=== PATIENT | female | born 1955 | race Caucasian/White ===

== ENCOUNTER → 2018-04-12 09:32 | Outpatient (CLI) | payer MEDICAID, SELFPAY ==
[2018-04-12 12:21] LABS: Vitamin D,25 Hydroxy 34.2 ng/mL (29.95-100.01)
== END ==
PROVIDERS: Family Provider Family Medicine; PCP Family Medicine; Visit Provider Family Medicine
DX: E55.9 Vitamin D deficiency, unspecified (principal)
CPT/HCPCS: 36415; 82306

== ENCOUNTER → 2018-06-01 11:15 | Outpatient (CLI) | payer MEDICAID, SELFPAY ==
[2018-06-01 15:18] LABS: Absolute Neutrophil Count 3.5 X10^3/uL (2.0-7.7); Basophil# 0.05 X10^3/uL; Basophil% 0.8 % (0-1); Eosinophil# 0.26 X10^3/uL; Eosinophils% 3.9 % (0-5); Hematocrit 43.9 % (37-47); Hemoglobin 14.6 g/dl (12.0-15.0); Lymphocyte % 34.7 % (19-41); Mean Corp Hgb Conc 33.3 g/gl (32-36); Mean Corpuscular Hgb 30.5 pg (27.0-32.0); Mean Corpuscular Volume 91.8 fL (81-99); Mean Platelet Vol. 10.7 fl (6.2-12.0); Monocyte# 0.46 X10^3/uL; Monocyte% 6.9 % (0-10); Neutrophil # 3.54 X10^3/uL (2.7-7.7); Neutrophil % 53.5 % (47-70); Platelet Count 209 K/mm3 (150-450); RBC Distribution Width CV 13.1 % (11.6-14.6); RBC Distribution Width SD 43.6 fl (35.1-43.9); Red Blood Count 4.78 M/mm3 (4.2-5.4); White Blood Count 6.6 K/mm3 (4.4-11.0)
[2018-06-01 15:19] LABS: POSITIVE COUNT NO; POSITIVE DIFFERENTIAL NO; POSITIVE MORPHOLOGY NO
[2018-06-01 15:35] LABS: ALB/GLOB Ratio 1.1 RATIO (0.9-2.4); AST(SGOT) 17 U/L (15-37); Alanine Aminotransfer ALT/SGPT 29 U/L (13-56); Albumin, Serum 3.6 g/dL (3.2-5.0); Alkaline Phosphatase 98 U/L (45-117); Anion Gap 10 (5-15); BUN 11 mg/dL (7-18); BUN/Creat Ratio 14.9 RATIO (10-20); Calcium,Total 8.9 mg/dL (8.5-10.1); Chloride 102 mmol/L (98-107); Creatinine, Serum 0.74 mg/dL (0.55-1.02); EST Glomerular Filtration Rate 85 mL/min (>60); Est Glom Filt Rate - Afr Amer 103 mL/min (>60); Globulin 3.3 g/dL (2.2-4.2); Glucose 95 mg/dL (74-106); Potassium 3.3 mmol/L (3.5-5.1); Protein, Total 6.9 g/dL (6.4-8.2); Sodium Level 139 mmol/L (136-145); T4 Free Direct 1.11 ng/dL (0.76-1.46); Thyroid Stim Hormone (TSH) 1.75 uIU/mL (0.358-3.74)
== END ==
PROVIDERS: Family Provider Family Medicine; PCP Family Medicine; Visit Provider Family Medicine
DX: I10 Essential (primary) hypertension (principal); K51.90 Ulcerative colitis, unspecified, without complications; E87.6 Hypokalemia; N39.0 Urinary tract infection, site not specified
CPT/HCPCS: 36415; 80053; 84439; 84443; 85025; 87086; 87088

== ENCOUNTER → 2018-08-31 12:12 | Outpatient (CLI) | payer MEDICARE, SELFPAY | PROVIDERS: Family Provider Family Medicine; PCP Family Medicine; Referring Provider Family Medicine; Visit Provider Family Medicine | DX: J02.9 Acute pharyngitis, unspecified (principal) | CPT/HCPCS: 87070 ==

== ENCOUNTER → 2018-09-03 14:07 | Outpatient (CLI) | payer MEDICARE, SELFPAY ==
[2018-09-03 13:20] VITALS: BMI 46.4
--- NOTE | 2018-09-03 14:09 | RAD_ITS ---
STUDY: X-RAY CHEST REASON FOR EXAM: Female, 62 years old. Shortness of breath and cough TECHNIQUE: PA and lateral views of the chest. COMPARISON: 04/15/2017 FINDINGS: The lungs are clear and expanded. There is no demonstrated pleural abnormality. Normal size heart. Normal mediastinum and kati. Normal visualized pulmonary arteries. Normal visualized aortic arch and descending thoracic aorta. Normal visualized thoracic spine. Normal visualized ribs, clavicles, and shoulders. There is no demonstrated abnormality of the visualized soft tissue structures of the upper abdomen. RAD/Chest PA and Lateral IMPRESSION: Normal x-ray examination of the chest. Electronically Signed: Ivan Encinas MD at 21:06 EST , Service support ,
[2018-09-03 15:27] LABS: Anion Gap 10 (5-15); BUN 21 mg/dL (7-18); Calcium,Total 8.7 mg/dL (8.5-10.1); Chloride 108 mmol/L (98-107); Creatinine, Serum 0.88 mg/dL (0.55-1.02); EST Glomerular Filtration Rate 70 mL/min (>60); Est Glom Filt Rate - Afr Amer 84 mL/min (>60); Glucose 121 mg/dL (74-106); Potassium 3.4 mmol/L (3.5-5.1); Sodium Level 140 mmol/L (136-145)
== END ==
PROVIDERS: Family Provider Family Medicine; PCP Family Medicine; Referring Provider Internal Medicine Cardiovascular Disease; Visit Provider Internal Medicine Cardiovascular Disease
DX: R06.00 Dyspnea, unspecified (principal)
CPT/HCPCS: 36415; 71046; 80048; 83880

== ENCOUNTER → 2018-09-10 07:45 | Outpatient (CLI) | payer MEDICARE, SELFPAY ==
[2018-09-03 13:20] VITALS: BMI 46.4
--- NOTE | 2018-09-10 07:48 | ECHOCS_ITS ---
Reason For Study: DYSPNEA/SOB Procedure This was a 2D Doppler, Color Flow transthoracic echocardiogram. The study was technically difficult. Exam performed in department. Left Ventricle Normal LV size. Left ventricular systolic function is normal. The estimated ejection fraction is 60 %. No evidence for diastolic dysfunction. No regional wall motion abnormalities noted. Right Ventricle Normal RV size. Normal systolic function. Atria Normal left atrium. Normal right atrium. Mitral Valve Mild mitral valve prolapse. Mild (1+) eccentric mitral valve insufficiency. Tricuspid Valve Normal tricuspid valve. Mild (1+) tricuspid valve insufficiency. Pulmonary artery systolic pressure is 33 mmHg. Aortic Valve The aortic valve is not well visualized. Pulmonic Valve The pulmonic valve is not well visualized. Great Vessels Normal aortic root. Pericardium/Pleural No pericardial effusion. Medication 22 gauge I.V. with prn adaptor inserted into right arm. Diluted definity 6ml given slow IV push to enhance endocardial definition. MMode/2D Measurements & Calculations LVIDd: 5.0 cm IVSd: 1.2 cm Ao root diam: 3.5 cm LVIDs: 3.1 cm LVPWd: 1.2 cm LA dimension: 4.6 cm FS: 37.6 % LAV(MOD-bp): 95.3 ml LA A4 area: 30.3 cm2 LAV(MOD-bp) Indexed: 45.1 ml/m2 LAV(MOD-sp2): 75.2 ml LAV(MOD-sp4): 109.4 ml Time Measurements MV dec time: 0.23 sec Doppler Measurements & Calculations MV E max mohan: 86.5 cm/sec Lat Peak E' Mohan: 8.6 cm/sec Med Peak E' Mohan: 6.6 cm/sec MV A max mohan: 75.4 cm/sec E/E' lat: 10.0 E/E' med: 13.0 MV E/A: 1.1 MV V2 max: 92.5 cm/sec MV P1/2t max mohan: 92.5 cm/sec Ao V2 max: 124.8 cm/sec MV max P.4 mmHg MV P1/2t: 109.1 msec Ao max P.2 mmHg MV V2 mean: 53.3 cm/sec MV dec slope: 248.5 cm/sec2 MV mean P.3 mmHg MV V2 VTI: 24.6 cm MVA(P1/2t): 2.0 cm2 LV V1 max: 83.5 cm/sec MR max mohan: 544.5 cm/sec PA V2 max: 84.7 cm/sec LV V1 max P.8 mmHg MR max P.6 mmHg MR mean mohan: 395.9 cm/sec MR mean P.7 mmHg MR VTI: 180.2 cm TR max mohan: 272.4 cm/sec TR max P.7 mmHg Interpretation Summary Normal LV size. Left ventricular systolic function is normal. The estimated ejection fraction is 60 %. No evidence for diastolic dysfunction. Mild (1+) eccentric mitral valve insufficiency. Mild (1+) tricuspid valve insufficiency. Contrast injection was performed. Compared to previous study, the left ventricular systolic function is the same.. Ordering Physician: Jorge Gutiérrez Referring Physician: Jorge Gutiérrez Performed By: Nate Langley RCS
--- OUTSIDE RECORDS SUMMARY | 2018-11-14 14:42 | XMS RPT_ITS ---
:1955 Author Organization OHIP Support Name Relationship Address Phone D Unavailable Unavailable Unavailable MEHERG, STEFANO Unavailable [id number] + [place] [address] D Unavailable Unavailable Unavailable D Unavailable Unavailable Unavailable MEHERG, STEFANO Unavailable [address] + [place] [address] D Unavailable Unavailable Unavailable MEHERG, STEFANO Unavailable [address] + [place] [address] LAWSON, LISSETH Unavailable Unavailable + [place] [address] D Unavailable Unavailable Unavailable D Unavailable Unavailable Unavailable MEHERG, STEFANO Unavailable [address] + [place] [address] D Unavailable Unavailable Unavailable MEHERG, STEFANO Unavailable [address] + [place] [address] LAWSON, LISSETH Unavailable Unavailable + D Unavailable Unavailable Unavailable MEHERG, STEFANO Unavailable [address] + [place] [address] LAWSON, LISSETH Unavailable Unavailable + MEHERG, STEFANO Unavailable Unavailable + D Unavailable Unavailable Unavailable MEHERG, STEFANO Unavailable NA + [place], [place] LAWSON, LISSETH Unavailable NA + [place], [place] D Unavailable Unavailable Unavailable MEHERG, STEFANO Unavailable NA + [place], [place] LAWSON, LISSETH Unavailable NA + [place], [place] D Unavailable Unavailable Unavailable MEHERG, STEFANO Unavailable [address] + [place] [address] LAWSON, LISSETH Unavailable [facility] + [place] [address] Care Team Providers Name Role Phone Opal Renteria Attending Unavailable Dexter, Opal Referring Unavailable Dexter, Opal Primary Care Unavailable Anastacia White Attending Unavailable Brock, Jorge Attending Unavailable Dexter, Opal Referring Unavailable Brock, [place] Attending Unavailable Brock, Jorge Referring Unavailable Dexter, Opal Primary Care Unavailable Brock, [place] Attending Unavailable Brock, [place] Referring Unavailable Dexter, Opal Primary Care Unavailable Brock, [place] Attending Unavailable Brock, [place] Referring Unavailable Dexter, Opal Primary Care Unavailable Brock, Jorge Attending Unavailable Dexter, Opal Referring Unavailable Dexter, Opal Attending Unavailable Dexter, Opal Primary Care Unavailable Dexter, Opal Attending Unavailable Dexter, Opal Primary Care Unavailable THALIA JOHNSTON Attending Unavailable OPAL RENTERIA Referring Unavailable Opal Renteria Primary Care Unavailable Nolvia Pierson Attending Unavailable PROBLEMS PROBLEMS DATE TYPE CONDITION / CODE ATTENDING STATUS SOURCE 09/17/2018 Unknown R06.00 - Dyspnea, Brock, Jorge Active [facility] unspecified / Community R06.00(ICD-10) Hospital Repository 09/17/2018 Unknown R06.09 - Other Brock, [place] Active [facility] forms of dyspnea / Community R06.09(ICD-10) Hospital Repository 07/11/2018 Admitting Unknown / Bashir Pierson Medical diagnosis UNK(Unknown) Nolvia Smith [facility] Repository 07/07/2018 Unknown I10 - Essential DexterOpal chan Active [place] [facility] (primary) [facility] hypertension / Hospital I10(ICD-10) Repository 07/07/2018 Unknown E55.9 - Vitamin D DexterOpal chan Active [place] [facility] deficiency, Community unspecified / Hospital E55.9(ICD-10) Repository PROCEDURES PROCEDURES No Procedure Records FoundRESULTS RESULTS BASIC METABOLIC Collected: 09/16/2018 Status: F Source: [place] PROFILE (BMP) 12:42 PM [facility] H[facility] REPOSITORY TYPE CODE TESTS RESULT OUT OF RANGE REFERENCE UNITS LAB L501.0100 74-106 mg/dL High GLU 108 Result Comment: Fasting Glucose result from 100 to 125 mg/dL suggests IMPAIRED HOMEOSTASIS per A.D.A. criteria. Please note revised GLUCOSE reference range effective 2017. LAB L501.1000 7-18 mg/dL Normal BUN 13 LAB L501.1100 0.55-1.02 mg/dL Normal CREAT,SERUM 0.65 Result Comment: The validity of the calculated GFR AND GFRAA in patients over 70 years has not been determined. Clinical correlation is essential. LAB L501.1110 >60 mL/min Normal EST GFR 98 Result Comment: Non- GFR Calc LAB L501.1115 >60 mL/min Normal EST GFR - AA 119 Result Comment: GFR Calc LAB L501.1300 10-20 RATIO Normal BUN/CRE 20.0 LAB L501.2200 8.5-10.1 mg/dL Low CA 8.2 LAB L501.5300 136-145 mmol/L NA Normal 141 LAB L501.5600 3.5-5.1 mmol/L Low K 3.2 LAB L501.5900 98-107 mmol/L CL Normal 105 LAB L501.6100 21.0-32.0 mmol/L Normal CO2 27.0 LAB L501.6200 5-15 Normal GAP 9 Performed By: #### L500.2500 #### [facility] [address] [place], [address] ECHO, COMPLETE W/ Observed: 09/10/2018 Status: F Source: [place] CONTRAST 10:24 AM [facility] REPOSITORY [facility] Cardiovascular Services [address] [place] [address] Echo Complete W/ Contrast 09/10/18 0750 MR#: [id number] Acct: [id number] Name: STACIE NICHOLS Rep #: [id number] : 1955 62 From: Jorge Gutiérrez MD Attending Dr: Jorge Gutiérrez MD Status: REG CLI Ordering Dr: Jorge Gutiérrez MD Date: 09/10/18 Location: [facility] Sex: F C Admitted: Reason For Study: DYSPNEA/SOB Procedure This was a 2D Doppler, Color Flow transthoracic echocardiogram. The study was technically difficult. Exam performed in department. Left Ventricle Normal LV size. Left ventricular systolic function is normal. The estimated ejection fraction is 60 %. No evidence for diastolic dysfunction. No regional wall motion abnormalities noted. Right Ventricle Normal RV size. Normal systolic function. Atria Normal left atrium. Normal right atrium. Mitral Valve Mild mitral valve prolapse. Mild (1+) eccentric mitral valve insufficiency. Tricuspid Valve Normal tricuspid valve. Mild (1+) tricuspid valve insufficiency. Pulmonary artery systolic pressure is 33 mmHg. Aortic Valve The aortic valve is not well visualized. Pulmonic Valve The pulmonic valve is not well visualized. Great Vessels Normal aortic root. Pericardium/Pleural No pericardial effusion. Medication 22 gauge I.V. with prn adaptor inserted into right arm. Diluted definity 6ml given slow IV push to enhance endocardial definition. MMode/2D Measurements AND Calculations LVIDd: 5.0 cm IVSd: 1.2 cm Ao root diam: 3.5 cm LVIDs: 3.1 cm LVPWd: 1.2 cm LA dimension: 4.6 cm FS: 37.6 % LAV(MOD-bp): 95.3 ml LA A4 area: 30.3 cm2 LAV(MOD-bp) Indexed: 45.1 ml/m2 LAV(MOD-sp2): 75.2 ml LAV(MOD-sp4): 109.4 ml Time Measurements MV dec time: 0.23 sec Doppler Measurements AND Calculations MV E max mohan: 86.5 cm/sec Lat Peak E' Mohan: 8.6 cm/sec Med Peak E' Mohan: 6.6 cm/sec MV A max mohan: 75.4 cm/sec E/E' lat: 10.0 E/E' med: 13.0 MV E/A: 1.1 MV V2 max: 92.5 cm/sec MV P1/2t max mohan: 92.5 cm/sec Ao V2 max: 124.8 cm/sec MV max P.4 mmHg MV P1/2t: 109.1 msec Ao max P.2 mmHg MV V2 mean: 53.3 cm/sec MV dec slope: 248.5 cm/sec2 MV mean P.3 mmHg MV V2 VTI: 24.6 cm MVA(P1/2t): 2.0 cm2 LV V1 max: 83.5 cm/sec MR max mohan: 544.5 cm/sec PA V2 max: 84.7 cm/sec LV V1 max P.8 mmHg MR max P.6 mmHg MR mean mohan: 395.9 cm/sec MR mean P.7 mmHg MR VTI: 180.2 cm TR max mohan: 272.4 cm/sec TR max P.7 mmHg Interpretation Summary Normal LV size. Left ventricular systolic function is normal. The estimated ejection fraction is 60 %. No evidence for diastolic dysfunction. Mild (1+) eccentric mitral valve insufficiency. Mild (1+) tricuspid valve insufficiency. Contrast injection was performed. Compared to previous study, the left ventricular systolic function is the same.. Ordering Physician: Jorge Gutiérrez Referring Physician: Jorge Gutiérrez Performed By: Nate Langley, DANIELLE 09/10/18 1023 Date Jorge Gutiérrez MD CC: Jorge Gutiérrez MD; Opal Renteria MD Date Dictated: 09/10/18 0750 Date Transcribed: 09/10/18 1023 Band And Cuff Cutter: Signed BASIC METABOLIC Collected: 09/03/2018 Status: F Source: [place] PROFILE ([facility]) 2:31 PM [facility] REPOSITORY TYPE CODE TESTS RESULT OUT OF RANGE REFERENCE UNITS LAB L501.0100 74-106 mg/dL High GLU 121 Result Comment: Fasting Glucose result from 100 to 125 mg/dL suggests IMPAIRED HOMEOSTASIS per A.D.A. criteria. Please note revised GLUCOSE reference range effective 2017. LAB L501.1000 7-18 mg/dL High BUN 21 LAB L501.1100 0.55-1.02 mg/dL Normal CREAT,SERUM 0.88 Result Comment: The validity of the calculated GFR AND GFRAA in patients over 70 years has not been determined. Clinical correlation is essential. LAB L501.1110 >60 mL/min Normal EST GFR 70 Result Comment: Non- GFR Calc LAB L501.1115 >60 mL/min Normal EST GFR - AA 84 Result Comment: GFR Calc LAB L501.1300 10-20 RATIO High BUN/CRE 24.0 LAB L501.2200 8.5-10.1 mg/dL CA Normal 8.7 LAB L501.5300 136-145 mmol/L NA Normal 140 LAB L501.5600 3.5-5.1 mmol/L Low K 3.4 LAB L501.5900 98-107 mmol/L High CL 108 LAB L501.6100 21.0-32.0 mmol/L Normal CO2 22.0 LAB L501.6200 5-15 Normal GAP 10 Performed By: #### L500.2500 #### [facility] [address] [place], [address] BNP,B-TYPE NATRIURETIC Collected: 09/03/2018 Status: F Source: [place] PEPTIDE 2:31 PM [facility] REPOSITORY TYPE CODE TESTS RESULT OUT OF RANGE REFERENCE UNITS LAB L503.6620 0-100 pg/mL High B-TYPE 106.0 MEAGHAN PEP Performed By: #### L503.6620 #### [facility] [address] [place], [address] CHEST PA AND LATERAL Observed: 09/03/2018 Status: F Source: [place] 2:09 PM [facility] REPOSITORY [facility] Imaging Services [address] [place] [address] Chest PA and Lateral MR#: [id number] Acct: [id number] Name: STACIE NICHOLS Rep #: [id number] : 1955 F 62 From: Huan Encinas MD PCP: Opal Renteria MD Status: REG CLI Study: Chest PA and Lateral Date of Exam: 09/03/18 Exam# [id number] Ordering Dr: Jorge Gutiérrez MD STUDY: X-RAY CHEST REASON FOR EXAM: Female, 62 years old. Shortness of breath and cough TECHNIQUE: PA and lateral views of the chest. COMPARISON: 04/15/2017 FINDINGS: The lungs are clear and expanded. There is no demonstrated pleural abnormality. Normal size heart. Normal mediastinum and kati. Normal visualized pulmonary arteries. Normal visualized aortic arch and descending thoracic aorta. Normal visualized thoracic spine. Normal visualized ribs, clavicles, and shoulders. There is no demonstrated abnormality of the visualized soft tissue structures of the upper abdomen. RAD/Chest PA and Lateral IMPRESSION: Normal x-ray examination of the chest. Electronically Signed: Ivan Encinas MD at 21:06 EST , Service support , CC: Jorge Gutiérrez MD; Opal Renteria MD Band And Cuff Cutter: Signed CARDIOLOGY VISIT Observed: 09/03/2018 Status: F Source: [place] REPORT 1:46 PM [facility] REPOSITORY [facility] [address] [place] [address] OFFICE VISIT Date of Service: 09/03/18 MR#: [id number] Acct: [id number] Name: STACIE NICHOLS Rep #: [id number] : 1955 Provider: Jorge Gutiérrez MD Age/Sex: 62/F Location[place] [facility] Status: Signed HPI HPI Chief Complaint: Follow-up visit Details: STACIE NICHOLS, is a 62 F who presents to the office today for a follow-up visit. She is a lady with a history of mild to moderate mitral regurgitation, mitral valve prolapse who says that she has been having shortness of breath which appears to be progressive. In addition she has had an exacerbation which has been thought to be bronchitis. She denies any neck arm or jaw discomfort suggest angina no dizziness or diaphoresis no near syncope or syncope. She has been compliant with all her medications. She however has not followed up due to insurance issues. Her last echocardiogram in June 2017 demonstrated an ejection fraction of 60% mild mitral regurgitation mild mitral valve prolapse and pulmonary systolic pressure of 31 mmHg. Her physical exam here today demonstrates clear lung andrew regular rate and rhythm a 2/6 holosystolic murmur noted left sternal border. An electrocardiogram that was performed in March 2017 demonstrates sinus rhythm with premature ventricular complexes noted. Intake Vital Signs09/03/18 Height 5 ft 2 in 09/03/18 Weight: 254 lb 09/03/18 Body Mass Index (BMI) 46.4 09/03/18 Blood Pressure 124/72 H 09/03/18 Respiratory Rate 18 09/03/18 Pulse Rate 78 Intake Visit Reasons: SOB, overdue for f/up Allergies No Known Allergies Allergy (Verified 09/03/18 13:18) Medications Metoprolol Tartrate [Lopressor (Beta Florencio)] 50 mg PO DAILY 03/05/16 [History Confirmed 09/03/18] Pantoprazole Sodium [Protonix] 40 mg PO DAILY 03/05/16 [History Confirmed 09/03/18] Potassium Chloride [Klor-Con M20] 20 meq PO DAILY 03/05/16 [History Confirmed 09/03/18] Sertraline HCl [Zoloft] 50 mg PO DAILY 03/05/16 [History Confirmed 09/03/18] Venlafaxine XR [Effexor Xr] 150 mg PO DAILY 03/05/16 [History Confirmed 09/03/18] Albuterol Inhaler [Ventolin Hfa] 1 - 2 puff INHALATION Q4H PRN PRN #1 inhaler 04/15/17 [Rx Confirmed 09/03/18] amoxicillin 500 mg tablet 500 mg PO .COMPLEX 07/31/17 [History Confirmed 09/03/18] budesonide-formoterol HFA 160 mcg-4.5 mcg/actuation aerosol inhaler 2 inh INHALATION DIRECTED g 07/31/17 [History Confirmed 09/03/18] nitroglycerin 0.4 mg sublingual tablet 0.4 mg SUBLINGUAL .COMPLEX PRN 07/31/17 [History Confirmed 09/03/18] ergocalciferol (vitamin D2) 50,000 unit capsule 50,000 unit PO QWEEK cap 08/05/17 [History Confirmed 09/03/18] furosemide 40 mg tablet 40 mg PO QDAY #90 tab 09/03/17 [Rx Confirmed 09/03/18] mesalamine 800 mg tablet,delayed release 800 mg PO TID tab 09/03/18 [History Confirmed 09/03/18] PFSH Medical History Non-rheumatic mitral regurgitation (Chronic) Nonrheumatic mitral valve prolapse (Chronic) Paroxysmal atrial tachycardia (Chronic) Asthma (Chronic) Depression (Chronic) Ulcerative colitis (Chronic) Surgical History Hx of cholecystectomy (Inactive) excision of tumor from lower spine (Inactive 04/2016) Family History Father CAD (coronary artery disease) Hypertension Diabetes Mother CAD (coronary artery disease) Hypertension Sister Diabetes Social History Smoking Status: Never smoker ROS Const Const: Positive for other (Has bronchitis, but SOB worse over past year); negative for fatigue, weakness, difficulty sleeping, frequent falls, excessive sweating or headache(s) Eyes Eyes: Negative for loss of peripheral vision, transient loss of vision, blurry vision, tunnel vision or double vision ENT ENT: Negative for headache(s), dizziness, Nosebleed/epistaxis or balance problems Cardio Chest Pain: No Palpitations: No Edema: None Muscle aches with walking: None Resp Respiratory: Positive for SOB with activity and SOB at rest; negative for SOB orthopnea\SOB lying down, paroxysmal nocturnal dyspnea or Cough GI GI: Negative nausea, heartburn, black,tarry stools or vomiting : Negative for hematuria Musc Musc: Negative for balance problems, muscle aches/ myalgia, muscle weakness or joint pain Skin Skin: Negative non-healing lesions, unusual bruising or rash Neuro Neuro: Negative for weakness, frequent falls, headache(s), blurry vision, double vision, dizziness, lightheadedness, orthostatic symptoms, near syncope, syncope or lack of coordination Tree Hematologic/Lymphatic: Negative for easy bruising or easy bleeding Endo Endo: Negative for fatigue, excessive sweating or increased thirst/drinking Psych Psych: Negative for anxiety or depression Allergy Allergy/Immunology: Negative for hives, Negative for rash Cardiology Exam Const Appearance: cooperative, healthy appearing, well developed, well groomed and no acute distress Nutritional Appearance: well nourished and average body habitus Orientation: alert, awake and oriented x3 Head Head: normal to inspection, normocephalic and atraumatic Ears: hearing grossly normal bilaterally and external ears normal Nose: external nose normal, nasal mucous membranes and turbinates normal, nares normal, septum normal, no nasal discharge Face and Sinus: face symmetric Mouth: oral mucosae normal, tongue normal, oropharynx normal and moist mucous membranes Teeth and gingiva: dentition normal Throat: posterior oropharynx normal, tonsils normal and uvula midline Eyes General: appearance normal, both eyes and all related structures Eyelids: eyelids normal Conjunctivae: conjunctivae normal Pupils: PERRL, normal by confrontation and accommodation normal EOM: EOM intact bilaterally Neck Neck: normal visual inspection, trachea midline and no JVD JVD: +5 Carotids: normal carotid upstroke and bounding pulses Chest Chest inspection: normal inspection of the chest, symmetric chest movement and normal respiratory effort Auscultation: Bilateral: Clear to Auscultation Cardio Palpation: normal PMI Rate: regular rate Rhythm: regular rhythm Heart sounds: S1 normal and S2 normal Murmur: Grade 2/6, soft, holosystolic and apex GI GI: normal to inspection, soft, no hepatosplenomegaly and bowel sounds present Neuro General: alert, awake, oriented x3, no focal sensory deficit, gait normal and moves all extremities Skin Skin: no rashes or lesions noted Extremities Pulses: Normal: Right Femoral Pulse, Left Femoral Pulse, Right Dorsalis Pedis Pulse, Left Dorsalis Pedis Pulse, Right Posterior Tibial Pulse, Left Posterior Tibial Pulse, Right Radial Pulse, Left Radial Pulse Lower Extremity Edema: None: Bilateral Musculoskel Musculoskeletal: No joint tenderness Psych Psychological: normal affect Assessment AND Plan 1. Dyspnea on exertion R06.09 Plan She does have dyspnea which is unclear in etiology. She may have an exacerbation of bronchitis but I suspect that she does have some element of elevated pulmonary pressures. I recommend that we repeat her echocardiogram, and a natruretic peptide level as well as a chest x-ray. She will remain on her Lasix and depending on these findings further recommendations will then be made. I do not think there is a reason to perform any stress testing as I do not think this is an anginal equivalent. Thank you for allowing me to participate in the care of your patient. Please don't hesitate to call if any issues arise Plan Detail Other Orders Orders: Follow Up 3 Months (mmm) Coding Level of Care Code Off vis,est,level 4 Diagnoses Dyspnea on exertion R06.09 Dyspnea type: dyspnea on exertion Coding Level of Care Code Off vis,est,level 4 Diagnoses Dyspnea on exertion R06.09 Dyspnea type: dyspnea on exertion Supplemental Info Supplemental Information Diagnostics Electrocardiogram 04/15/17 Chest X-Ray 04/15/17 09/03/18 1346 <Electronically signed by Jorge Gutiérrez MD> Date Jorge Gutiérrez MD Cosigner Signature: Date (if applicable) CC: Opal Renteria MD Observed: 08/31/2018 Status: F Source: [place] CULTURE, THROAT 10:00 AM [facility] REPOSITORY Culture, Throat Normal throat robert isolated. No beta-hemolytic streptococcus isolated. Performed By: #### M100.1000 #### [facility] [address] [place], [address] PROGRESS Observed: 08/31/2018 Status: COMPLETED Source: [place] 9:56 AM [facility] [place] REPOSITORY HNO ID: [id number] Author: Linsey Clancy) Aisha Service: (none) Author Type: Physician Underwriting Manager Type: Progress Notes Filed: 08/31/2018 11:17 AM Note Text: Subjective HPI Patient presents with a cough over the past 3 weeks. She was seen here August 12 and given amoxicillin for possible sinus infection. States never really improved. She does have asthma. She's not been on prednisone recently. She feels that she's been wheezy. She had to use her nebulizer machine last night. Denies chest pain or shortness of breath. No fever. Her and her granddaughter up until recently as well. Review of Systems HENT: Positive for congestion and sore throat. Respiratory: Positive for cough, shortness of breath and wheezing. Negative for hemoptysis and sputum production. All other systems reviewed and are negative. PAST MEDICAL HISTORY Diagnosis Date - Back pain - Esophageal reflux - Essential hypertension, benign - Family history of diabetes mellitus (DM) 06/28/2009 - Major depressive disorder, recurrent episode, unspecified - MVP (mitral valve prolapse) - Poorly controlled severe persistent asthma without complication 05/201306/15/2017 FEV1 = 0.92L, +16% post BD. Sherry 177. - Ulcerative colitis, unspecified 1977 - Unspecified sleep apnea 2003 doesn't tolerate CPAP Current Outpatient Prescriptions: albuterol (PROVENTIL) 2.5 mg /3 mL (0.083 %) nebulizer solution Use 3 mL via nebulizer every 4 hours as needed. OVER 5-15 MINUTES. FOR WHEEZING AND SHORTNESS OF BREATH. Disp: 120 Vial Rfl: 3 budesonide-formoterol (SYMBICORT) 160-4.5 mcg/actuation inhaler Inhale 2 Puffs as instructed twice daily. With Aerochamber. Disp: 3 Inhaler Rfl: 3 furosemide (LASIX) 40 mg tablet Take 1 tablet by mouth once daily. Disp: Rfl: 0 albuterol HFA (VENTOLIN HFA) 90 mcg/actuation inhaler Inhale 2 Puffs as instructed every 4 hours as needed for Wheezing/Shortness of Breath. Disp: 1 Inhaler Rfl: 0 potassium chloride ER (K-DUR, KLOR-CON) 20 mEq tablet Disp: Rfl: pantoprazole DR (PROTONIX) 40 mg tablet Take 1 tablet by mouth once daily. (may use generic) Disp: 90 tablet Rfl: 1 metoprolol tartrate, short acting, (LOPRESSOR) 50 mg tablet TAKE 1/2 TABLET BY MOUTH TWICE DAILY. TAKE 25 MG (HALF OF A 50 MG TABLET) Disp: 90 tablet Rfl: 1 venlafaxine XR (EFFEXOR XR) 150 mg 24 hr capsule TAKE 1 CAPSULE BY MOUTH ONCE DAILY. Disp: 90 capsule Rfl: 1 ergocalciferol, vitamin D2, (DRISDOL) 50,000 unit capsule Take one capsule by mouth twice a week. Disp: 24 capsule Rfl: 0 sertraline (ZOLOFT) 50 mg tablet Take 1 tablet by mouth once daily. TAKE ONE PILL ONCE A DAY. Disp: 90 tablet Rfl: 1 doxycycline (VIBRA-TABS) 100 mg tablet Take 1 tablet by mouth twice daily for 10 days. Disp: 20 tablet Rfl: 0 predniSONE (DELTASONE) 20 mg tablet Take 2 tablets by mouth once daily for 5 days. Disp: 10 tablet Rfl: 0 benzonatate (TESSALON PERLES) 100 mg capsule Take 2 capsules by mouth three times daily as needed. Disp: 30 capsule Rfl: 0 DOXYCYCLINE HYCLATE ORAL Take by mouth. Disp: Rfl: HYDROcodone-homatropine (HYDROMET) 5-1.5 mg/5 mL syrup Disp: Rfl: hydrochlorothiazide (HYDRODIURIL, ESIDRIX) 25 mg tablet Take 1 tablet by mouth once daily. (Patient not taking: Reported on 08/31/2018 ) Disp: 90 tablet Rfl: 1 No current facility-administered medications for this visit. PAST SURGICAL HISTORY Procedure Laterality Date - BACK SURGERY HX 05/22/2016 L2-3. Tumor, benign. - COLONOSCOP W/ OR W/O [facility] SPEC 11/25/2005 Colonoscopy - COLONOSCOP W/ OR W/O [facility] SPEC 10/07/2011 Colonoscopy - COLONOSCOP W/ OR W/O [facility] SPEC 12/09/13 Colonoscopy - COLONOSCOP W/ OR W/O [facility] SPEC 01/14/16 Colonoscopy (MAC) - COLONOSCOPY W/BX 06/08/07 - COLONOSCOPY W/BX 08/14/09 - EGD W/O OR W/BRUSH/WASH 03/15/2014 EGD - PAST SURGICAL HISTORY OF cholecystectomy open - PAST SURGICAL HISTORY OF lt shoulder (Dr. Mckee) - PAST SURGICAL HISTORY OF heel spurs FAMILY HISTORY Problem Relation Age of Onset - Heart Mother [place] - age 70 - Hypertension Mother - COPD Mother - Diabetes Father Diagnosed in his 60s - COPD Father 03/2017. - Diabetes Sister Diagnosed late 40s, has neuropathy - Cancer Paternal Aunt Liver. Social History Substance Use Topics - Smoking status: Never Smoker - Smokeless tobacco: Never Used Comment: Parents both smoked in childhood home. - Alcohol use Yes Comment: Occasional BP 130/86 Pulse 72 Temp 36.7 ?C (98 ?F) (Tympanic) Resp 16 Wt 115.7 kg (255 lb) LMP 08/22/2010 SpO2 97% BMI 46.64 kg/m? Objective Physical Exam Constitutional: She is oriented to person, place, and time and well-developed, well-nourished, and in no distress. HENT: Head: Normocephalic and atraumatic. Right Ear: Tympanic membrane, external ear and ear canal normal. Left Ear: Tympanic membrane, external ear and ear canal normal. Nose: Rhinorrhea present. Mouth/Throat: Uvula is midline, oropharynx is clear and moist and mucous membranes are normal. Neck: Normal range of motion. Neck supple. Cardiovascular: Normal rate, regular rhythm and normal heart sounds. Pulmonary/Chest: Effort normal and breath sounds normal. No respiratory distress. She has no wheezes. She has no rales. Harsh cough Lymphadenopathy: She has no cervical adenopathy. Neurological: She is oriented to person, place, and time. Skin: Skin is warm and dry. No rash noted. Psychiatric: Affect and judgment normal. Nursing note and vitals reviewed. ASSESSMENT/PLAN: 1. Acute bronchitis, unspecified organism - ICD9: 466.0, ICD10: J20.9 (primary diagnosis) Treatment patient with prednisone and Tessalon. Discussed her waiting 4-5 days before filling the doxycycline is likely this is a postviral cough. Patient agreeable with this plan. She is oxygenating well. Lungs are clear here. Discussed with patient concerning symptoms to go to the emergency department or follow up here. Pt agreeable with this plan. 2. Sore throat - ICD9: 462, ICD10: J02.9 - Rapid Strep negative in the office today and Throat culture pending - Discussed supportive care treatment with fluids, rest and analgesia. - GROUP A STREPTOCOCCUS BY PCR - RAPID STREP TEST B/O Linsey Leonard PA-C CNOV Observed: 08/31/2018 Status: COMPLETED Source: [place] 9:30 AM [facility] REPOSITORY Office Visit ([facility]) STACIE NICHOLS ([id number]) 1955 F Date Time Provider Department 08/31/18 9:30 AM LINSEY LEONARD (MIKAEL) [facility] During your visit today, we recorded the following information about you: Temperature Pulse Respiration Blood pressure 98 degrees 72/minute 16/minute 130/86 Weight 115.7 kg Linsey Leonard PA-C 08/31/2018 11:17 AM Signed Subjective HPI Patient presents with a cough over the past 3 weeks. She was seen here August 12 and given amoxicillin for possible sinus infection. States never really improved. She does have asthma. She's not been on prednisone recently. She feels that she's been wheezy. She had to use her nebulizer machine last night. Denies chest pain or shortness of breath. No fever. Her and her granddaughter up until recently as well. Review of Systems HENT: Positive for congestion and sore throat. Respiratory: Positive for cough, shortness of breath and wheezing. Negative for hemoptysis and sputum production. All other systems reviewed and are negative. PAST MEDICAL HISTORY Diagnosis Date - Back pain - Esophageal reflux - Essential hypertension, benign - Family history of diabetes mellitus (DM) 06/28/2009 - Major depressive disorder, recurrent episode, unspecified - MVP (mitral valve prolapse) - Poorly controlled severe persistent asthma without complication 05/201306/15/2017 FEV1 = 0.92L, +16% post BD. Sherry 177. - Ulcerative colitis, unspecified 1977 - Unspecified sleep apnea 2003 doesn't tolerate CPAP Current Outpatient Prescriptions: albuterol (PROVENTIL) 2.5 mg /3 mL (0.083 %) nebulizer solution Use 3 mL via nebulizer every 4 hours as needed. OVER 5-15 MINUTES. FOR WHEEZING AND SHORTNESS OF BREATH. Disp: 120 Vial Rfl: 3 budesonide-formoterol (SYMBICORT) 160-4.5 mcg/actuation inhaler Inhale 2 Puffs as instructed twice daily. With Aerochamber. Disp: 3 Inhaler Rfl: 3 furosemide (LASIX) 40 mg tablet Take 1 tablet by mouth once daily. Disp: Rfl: 0 albuterol HFA (VENTOLIN HFA) 90 mcg/actuation inhaler Inhale 2 Puffs as instructed every 4 hours as needed for Wheezing/Shortness of Breath. Disp: 1 Inhaler Rfl: 0 potassium chloride ER (K-DUR, KLOR-CON) 20 mEq tablet Disp: Rfl: pantoprazole DR (PROTONIX) 40 mg tablet Take 1 tablet by mouth once daily. (may use generic) Disp: 90 tablet Rfl: 1 metoprolol tartrate, short acting, (LOPRESSOR) 50 mg tablet TAKE 1/2 TABLET BY MOUTH TWICE DAILY. TAKE 25 MG (HALF OF A 50 MG TABLET) Disp: 90 tablet Rfl: 1 venlafaxine XR (EFFEXOR XR) 150 mg 24 hr capsule TAKE 1 CAPSULE BY MOUTH ONCE DAILY. Disp: 90 capsule Rfl: 1 ergocalciferol, vitamin D2, (DRISDOL) 50,000 unit capsule Take one capsule by mouth twice a week. Disp: 24 capsule Rfl: 0 sertraline (ZOLOFT) 50 mg tablet Take 1 tablet by mouth once daily. TAKE ONE PILL ONCE A DAY. Disp: 90 tablet Rfl: 1 doxycycline (VIBRA-TABS) 100 mg tablet Take 1 tablet by mouth twice daily for 10 days. Disp: 20 tablet Rfl: 0 predniSONE (DELTASONE) 20 mg tablet Take 2 tablets by mouth once daily for 5 days. Disp: 10 tablet Rfl: 0 benzonatate (TESSALON PERLES) 100 mg capsule Take 2 capsules by mouth three times daily as needed. Disp: 30 capsule Rfl: 0 DOXYCYCLINE HYCLATE ORAL Take by mouth. Disp: Rfl: HYDROcodone-homatropine (HYDROMET) 5-1.5 mg/5 mL syrup Disp: Rfl: hydrochlorothiazide (HYDRODIURIL, ESIDRIX) 25 mg tablet Take 1 tablet by mouth once daily. (Patient not taking: Reported on 08/31/2018 ) Disp: 90 tablet Rfl: 1 No current facility-administered medications for this visit. PAST SURGICAL HISTORY Procedure Laterality Date - BACK SURGERY HX 05/22/2016 L2-3. Tumor, benign. - COLONOSCOP W/ OR W/O BRS SPEC 11/25/2005 Colonoscopy - COLONOSCOP W/ OR W/O BRS SPEC 10/07/2011 Colonoscopy - COLONOSCOP W/ OR W/O [facility] SPEC 12/09/13 Colonoscopy - COLONOSCOP W/ OR W/O [facility] SPEC 01/14/16 Colonoscopy (MAC) - COLONOSCOPY W/BX 06/08/07 - COLONOSCOPY W/BX 08/14/09 - EGD W/O OR W/BRUSH/WASH 03/15/2014 EGD - PAST SURGICAL HISTORY OF cholecystectomy open - PAST SURGICAL HISTORY OF lt shoulder (Dr. Mckee) - PAST SURGICAL HISTORY OF heel spurs FAMILY HISTORY Problem Relation Age of Onset - Heart Mother [place] - age 70 - Hypertension Mother - COPD Mother - Diabetes Father Diagnosed in his 60s - COPD Father 03/2017. - Diabetes Sister Diagnosed late 40s, has neuropathy - Cancer Paternal Aunt Liver. Social History Substance Use Topics - Smoking status: Never Smoker - Smokeless tobacco: Never Used Comment: Parents both smoked in childhood home. - Alcohol use Yes Comment: Occasional BP 130/86 Pulse 72 Temp 36.7 ?C (98 ?F) (Tympanic) Resp 16 Wt 115.7 kg (255 lb) LMP 08/22/2010 SpO2 97% BMI 46.64 kg/m? Objective Physical Exam Constitutional: She is oriented to person, place, and time and well-developed, well-nourished, and in no distress. HENT: Head: Normocephalic and atraumatic. Right Ear: Tympanic membrane, external ear and ear canal normal. Left Ear: Tympanic membrane, external ear and ear canal normal. Nose: Rhinorrhea present. Mouth/Throat: Uvula is midline, oropharynx is clear and moist and mucous membranes are normal. Neck: Normal range of motion. Neck supple. Cardiovascular: Normal rate, regular rhythm and normal heart sounds. Pulmonary/Chest: Effort normal and breath sounds normal. No respiratory distress. She has no wheezes. She has no rales. Harsh cough Lymphadenopathy: She has no cervical adenopathy. Neurological: She is oriented to person, place, and time. Skin: Skin is warm and dry. No rash noted. Psychiatric: Affect and judgment normal. Nursing note and vitals reviewed. ASSESSMENT/PLAN: 1. Acute bronchitis, unspecified organism - ICD9: 466.0, ICD10: J20.9 (primary diagnosis) Treatment patient with prednisone and Tessalon. Discussed her waiting 4-5 days before filling the doxycycline is likely this is a postviral cough. Patient agreeable with this plan. She is oxygenating well. Lungs are clear here. Discussed with patient concerning symptoms to go to the emergency department or follow up here. Pt agreeable with this plan. 2. Sore throat - ICD9: 462, ICD10: J02.9 - Rapid Strep negative in the office today and Throat culture pending - Discussed supportive care treatment with fluids, rest and analgesia. - GROUP A STREPTOCOCCUS BY PCR - RAPID STREP TEST B/O Linsey Leonard PA-C Referring Provider: SELF [200] Allergies As of Date: 08/31/2018 (No Known Allergies) Date Reviewed: 08/12/2018 Reviewed by: Julia Salinas Ma - Fully Assessed Reason for Visit: Cough [28] Cmt: chest congestion, sore throat x 1 week Primary Visit Diagnosis:Acute bronchitis, unspecified organism [J20.9] Other Visit Diagnosis:Sore throat [J02.9] Order(s):GROUP A STREPTOCOCCUS BY PCR [SQGASPCR] Order #: [id number] RAPID STREP TEST B/O [[id number]] Order #: [id number] doxycycline (VIBRA-TABS) 100 mg tabletTake 1 tablet by mouth twice daily for 10 days.Disp: 20 tabletRfl: 0 predniSONE (DELTASONE) 20 mg tabletTake 2 tablets by mouth once daily for 5 days.Disp: 10 tabletRfl: 0 benzonatate (TESSALON PERLES) 100 mg capsuleTake 2 capsules by mouth three times daily as needed.Disp: 30 capsuleRfl: 0 Prescriptions as of 08/31/2018 Sig: ALBUTEROL SULFATE 2.5 MG/3 ML* Use 3 mL via nebulizer every * BUDESONIDE-FORMOTEROL HFA 160* Inhale 2 Puffs as instructed * FUROSEMIDE 40 MG TABLET Take 1 tablet by mouth once d* ALBUTEROL SULFATE HFA 90 MCG/* Inhale 2 Puffs as instructed * POTASSIUM CHLORIDE ER 20 MEQ * PANTOPRAZOLE 40 MG TABLET,DEL* Take 1 tablet by mouth once d* METOPROLOL TARTRATE 50 MG TAB* TAKE 1/2 TABLET BY MOUTH TWIC* VENLAFAXINE ER 150 MG CAPSULE* TAKE 1 CAPSULE BY MOUTH ONCE * ERGOCALCIFEROL (VITAMIN D2) 5* Take one capsule by mouth twi* SERTRALINE 50 MG TABLET Take 1 tablet by mouth once d* DOXYCYCLINE HYCLATE 100 MG TA* Take 1 tablet by mouth twice * PREDNISONE 20 MG TABLET Take 2 tablets by mouth once * BENZONATATE 100 MG CAPSULE Take 2 capsules by mouth thre* DOXYCYCLINE HYCLATE ORAL Take by mouth. HYDROCODONE-HOMATROPINE 5 MG-* HYDROCHLOROTHIAZIDE 25 MG TAB* Take 1 tablet by mouth once d* Patient not taking: Reported on 08/31/2018 Problem List As Of Date 08/31/2018 Noted Resolved Ulcerative colitis (HCC) [K51.90] INVALID FOR* More... Major depressive disorder, recurrent episode (H* Esophageal reflux [K21.9] Essential hypertension, benign [I10] Allergic rhinitis, cause unspecified [J30.9] 06/11/2017 Sleep apnea [G47.30] More... Obesity, unspecified [E66.9] INVALID FOR* Mitral valve disorder [I05.9] INVALID FOR* More... Diastolic dysfunction [I51.9] INVALID FOR* More... Family history of diabetes mellitus (DM) [Z83.3]INVALID FOR*11/16/2015 Routine general medical examination at a health*INVALID FOR*11/16/2015 Class: Chronic More... Routine gynecological examination [Z01.419] INVALID FOR*11/16/2015 Class: Chronic More... Vitamin D deficiency [E55.9] INVALID FOR* RUQ abdominal mass [R19.01] INVALID FOR* Ulcerative (chronic) proctitis (HCC) [K51.20] INVALID FOR* Lumbar radiculopathy [M54.16] INVALID FOR* Poorly controlled severe persistent asthma with*INVALID FOR* More... Prescriptions ordered this encounter Disp Refills Start End DOXYCYCLINE HYCLATE 100 MG TABLET 20 t* 0 08/31/2018 09/10/2018 Class: Print RX Route: ORAL Sig: Take 1 tablet by mouth twice daily for 10 days. PREDNISONE 20 MG TABLET 10 t* 0 08/31/2018 09/05/2018 Route: ORAL Sig: Take 2 tablets by mouth once daily for 5 days. BENZONATATE 100 MG CAPSULE 30 c* 0 08/31/2018 Route: ORAL Sig: Take 2 capsules by mouth three times daily as needed. Encounter Status:Closed by LINSEY LEONARD PA-C on 08/31/18 [place] Observed: 08/12/2018 Status: COMPLETED Source: [place] 12:00 PM [facility] REPOS[facility]ORY [facility] STAC[facility]ICH[facility] ([id number]) 1955 F Date Time Provider Department 08/12/18 12:00 PM MATT CORMIER [facility] During your visit today, we recorded the following information about you: Temperature Pulse Respiration Blood pressure 97.9 degrees 70/minute 16/minute 110/74 Weight 115.7 kg Matt Cormier MD 08/12/2018 12:15 PM Signed Patient presents with: Chest Congestion: productive cough, nasal drainage, sore throat x 1 week HPI: Feeling sick for 1 week. Positive symptoms: Cough, Sore throat, Nasal Congestion, Shortness of breath, Wheezing, Earache, Sinus pressure, chills this morning Negative symptoms: Fever, OTC: Mucinex, albuterol PAST MEDICAL HISTORY Diagnosis Date - Back pain - Esophageal reflux - Essential hypertension, benign - Family history of diabetes mellitus (DM) 06/28/2009 - Major depressive disorder, recurrent episode, unspecified - MVP (mitral valve prolapse) - Poorly controlled severe persistent asthma without complication 05/201306/15/2017 FEV1 = 0.92L, +16% post BD. Sherry 177. - Ulcerative colitis, unspecified 1978 - Unspecified sleep apnea 2003 doesn't tolerate CPAP MEDICATIONS: Current Outpatient Prescriptions: albuterol (PROVENTIL) 2.5 mg /3 mL (0.083 %) nebulizer solution Use 3 mL via nebulizer every 4 hours as needed. OVER 5-15 MINUTES. FOR WHEEZING AND SHORTNESS OF BREATH. albuterol HFA (VENTOLIN HFA) 90 mcg/actuation inhaler Inhale 2 Puffs as instructed every 4 hours as needed for Wheezing/Shortness of Breath. budesonide-formoterol (SYMBICORT) 160-4.5 mcg/actuation inhaler Inhale 2 Puffs as instructed twice daily. With Aerochamber. ergocalciferol, vitamin D2, (DRISDOL) 50,000 unit capsule Take one capsule by mouth twice a week. furosemide (LASIX) 40 mg tablet Take 1 tablet by mouth once daily. hydrochlorothiazide (HYDRODIURIL, ESIDRIX) 25 mg tablet Take 1 tablet by mouth once daily. metoprolol tartrate, short acting, (LOPRESSOR) 50 mg tablet TAKE 1/2 TABLET BY MOUTH TWICE DAILY. TAKE 25 MG (HALF OF A 50 MG TABLET) pantoprazole DR (PROTONIX) 40 mg tablet Take 1 tablet by mouth once daily. (may use generic) potassium chloride ER (K-DUR, KLOR-CON) 20 mEq tablet sertraline (ZOLOFT) 50 mg tablet Take 1 tablet by mouth once daily. TAKE ONE PILL ONCE A DAY. venlafaxine XR (EFFEXOR XR) 150 mg 24 hr capsule TAKE 1 CAPSULE BY MOUTH ONCE DAILY. DOXYCYCLINE HYCLATE ORAL Take by mouth. HYDROcodone-homatropine (HYDROMET) 5-1.5 mg/5 mL syrup No current facility-administered medications for this visit. ALLERGIES: ALLERGIES No Known Allergies VITALS: BP 110/74 Pulse 70 Temp 36.6 ?C (97.9 ?F) (Tympanic) Resp 16 Wt 115.7 kg (255 lb) LMP 08/22/2010 SpO2 97% BMI 46.64 kg/m? PHYSICAL EXAM: GEN: mildly ill appearing HEENT: PERRL, EOMI, conjunctiva clear, ~4mm fleshy mass mid left lower eyelid in the lash line Ears: canals clear, TMs without erythema, bulge, or effusion Sinuses: non-tender frontal sinus, non-tender maxillary sinuses Throat: moist mucous membranes, mild erythema, no exudate Neck: supple, no thyromegaly, no lymphadenopathy HEART: regular rate and rhythm, 3/6 systolic murmurs LUNGS: clear to auscultation, no wheezes or crackles, no increased WOB ASSESSMENT/PLAN: 1. Acute non-recurrent sinusitis, unspecified location - ICD9: 461.9, ICD10: J01.90 (primary diagnosis) - AMOXICILLIN 875 MG TABLET 2. Sore throat - ICD9: 462, ICD10: J02.9 - Discussed supportive care treatment for URI symptoms. - RAPID STREP TEST B/O - negative. Patient is aware and has had evaluation for heart murmur and eyelid mass. Matt Cormier MD Referring Provider: SELF [200] Allergies As of Date: 08/12/2018 (No Known Allergies) Date Reviewed: 08/12/2018 Reviewed by: Julia Salinas Ma - Fully Assessed Reason for Visit: Chest Congestion [236] Cmt: productive cough, nasal drainage, sore throat x 1 week Primary Visit Diagnosis:Acute non-recurrent sinusitis, unspecified location [J01.90] Other Visit Diagnosis:Sore throat [J02.9] Order(s):RAPID STREP TEST B/O [[id number]] Order #: [id number] amoxicillin (AMOXIL) 875 mg tabletTake 1 tablet by mouth twice daily for 7 days.Disp: 14 tabletRfl: 0 Prescriptions as of 08/12/2018 Sig: ALBUTEROL SULFATE 2.5 MG/3 ML* Use 3 mL via nebulizer every * ALBUTEROL SULFATE HFA 90 MCG/* Inhale 2 Puffs as instructed * BUDESONIDE-FORMOTEROL HFA 160* Inhale 2 Puffs as instructed * ERGOCALCIFEROL (VITAMIN D2) 5* Take one capsule by mouth twi* FUROSEMIDE 40 MG TABLET Take 1 tablet by mouth once d* HYDROCHLOROTHIAZIDE 25 MG TAB* Take 1 tablet by mouth once d* METOPROLOL TARTRATE 50 MG TAB* TAKE 1/2 TABLET BY MOUTH TWIC* PANTOPRAZOLE 40 MG TABLET,DEL* Take 1 tablet by mouth once d* POTASSIUM CHLORIDE ER 20 MEQ * SERTRALINE 50 MG TABLET Take 1 tablet by mouth once d* VENLAFAXINE ER 150 MG CAPSULE* TAKE 1 CAPSULE BY MOUTH ONCE * AMOXICILLIN 875 MG TABLET Take 1 tablet by mouth twice * DOXYCYCLINE HYCLATE ORAL Take by mouth. HYDROCODONE-HOMATROPINE 5 MG-* Problem List As Of Date 08/12/2018 Noted Resolved Ulcerative colitis (HCC) [K51.90] INVALID FOR* More... Major depressive disorder, recurrent episode (H* Esophageal reflux [K21.9] Essential hypertension, benign [I10] Allergic rhinitis, cause unspecified [J30.9] 06/11/2017 Sleep apnea [G47.30] More... Obesity, unspecified [E66.9] INVALID FOR* Mitral valve disorder [I05.9] INVALID FOR* More... Diastolic dysfunction [I51.9] INVALID FOR* More... Family history of diabetes mellitus (DM) [Z83.3]INVALID FOR*11/16/2015 Routine general medical examination at a [facility]*INVALID FOR*11/16/2015 Class: Chronic More... Routine gynecological examination [Z01.419] INVALID FOR*11/16/2015 Class: Chronic More... Vitamin D deficiency [E55.9] INVALID FOR* RUQ abdominal mass [R19.01] INVALID FOR* Ulcerative (chronic) proctitis (HCC) [K51.20] INVALID FOR* Lumbar radiculopathy [M54.16] INVALID FOR* Poorly controlled severe persistent asthma with*INVALID FOR* More... Prescriptions ordered this encounter Disp Refills Start End AMOXICILLIN 875 MG TABLET 14 t* 0 08/12/2018 08/19/2018 Route: ORAL Sig: Take 1 tablet by mouth twice daily for 7 days. Encounter Status:Closed by MATT CORMIER MD on 08/12/18 PROGRESS Observed: 08/12/2018 Status: COMPLETED Source: [place] 11:57 AM [facility] REPOSITORY O ID: [id number] Author: Matt Cormier Service: (none) Author Type: Physician Type: Progress Notes Filed: 08/12/2018 12:15 PM Note Text: Patient presents with: Chest Congestion: productive cough, nasal drainage, sore throat x 1 week HPI: Feeling sick for 1 week. Positive symptoms: Cough, Sore throat, Nasal Congestion, Shortness of breath, Wheezing, Earache, Sinus pressure, chills this morning Negative symptoms: Fever, OTC: Mucinex, albuterol PAST MEDICAL HISTORY Diagnosis Date - Back pain - Esophageal reflux - Essential hypertension, benign - Family history of diabetes mellitus (DM) 06/28/2009 - Major depressive disorder, recurrent episode, unspecified - MVP (mitral valve prolapse) - Poorly controlled severe persistent asthma without complication 05/201306/15/2017 FEV1 = 0.92L, +16% post BD. Sherry 177. - Ulcerative colitis, unspecified 1977 - Unspecified sleep apnea 2003 doesn't tolerate CPAP MEDICATIONS: Current Outpatient Prescriptions: albuterol (PROVENTIL) 2.5 mg /3 mL (0.083 %) nebulizer solution Use 3 mL via nebulizer every 4 hours as needed. OVER 5-15 MINUTES. FOR WHEEZING AND SHORTNESS OF BREATH. albuterol HFA (VENTOLIN HFA) 90 mcg/actuation inhaler Inhale 2 Puffs as instructed every 4 hours as needed for Wheezing/Shortness of Breath. budesonide-formoterol (SYMBICORT) 160-4.5 mcg/actuation inhaler Inhale 2 Puffs as instructed twice daily. With Aerochamber. ergocalciferol, vitamin D2, (DRISDOL) 50,000 unit capsule Take one capsule by mouth twice a week. furosemide (LASIX) 40 mg tablet Take 1 tablet by mouth once daily. hydrochlorothiazide (HYDRODIURIL, ESIDRIX) 25 mg tablet Take 1 tablet by mouth once daily. metoprolol tartrate, short acting, (LOPRESSOR) 50 mg tablet TAKE 1/2 TABLET BY MOUTH TWICE DAILY. TAKE 25 MG (HALF OF A 50 MG TABLET) pantoprazole DR (PROTONIX) 40 mg tablet Take 1 tablet by mouth once daily. (may use generic) potassium chloride ER (K-DUR, KLOR-CON) 20 mEq tablet sertraline (ZOLOFT) 50 mg tablet Take 1 tablet by mouth once daily. TAKE ONE PILL ONCE A DAY. venlafaxine XR (EFFEXOR XR) 150 mg 24 hr capsule TAKE 1 CAPSULE BY MOUTH ONCE DAILY. DOXYCYCLINE HYCLATE ORAL Take by mouth. HYDROcodone-homatropine (HYDROMET) 5-1.5 mg/5 mL syrup No current facility-administered medications for this visit. ALLERGIES: ALLERGIES No Known Allergies VITALS: BP 110/74 Pulse 70 Temp 36.6 ?C (97.9 ?F) (Tympanic) Resp 16 Wt 115.7 kg (255 lb) LMP 08/22/2010 SpO2 97% BMI 46.64 kg/m? PHYSICAL EXAM: GEN: mildly ill appearing HEENT: PERRL, EOMI, conjunctiva clear, ~4mm fleshy mass mid left lower eyelid in the lash line Ears: canals clear, TMs without erythema, bulge, or effusion Sinuses: non-tender frontal sinus, non-tender maxillary sinuses Throat: moist mucous membranes, mild erythema, no exudate Neck: supple, no thyromegaly, no lymphadenopathy HEART: regular rate and rhythm, 3/6 systolic murmurs LUNGS: clear to auscultation, no wheezes or crackles, no increased WOB ASSESSMENT/PLAN: 1. Acute non-recurrent sinusitis, unspecified location - ICD9: 461.9, ICD10: J01.90 (primary diagnosis) - AMOXICILLIN 875 MG TABLET 2. Sore throat - ICD9: 462, ICD10: J02.9 - Discussed supportive care treatment for URI symptoms. - RAPID STREP TEST B/O - negative. Patient is aware and has had evaluation for heart murmur and eyelid mass. Matt Cormier MD CREATININE W.B. Collected: 07/11/2018 Status: F Source: [facility] 8:47 AM [facility] [employer] TYPE CODE TESTS RESULT OUT OF RANGE REFERENCE UNITS LAB [id number] 0.6-1.3 MG/DL Normal CREATININE W.B. 0.7 CT ENTEROGRAPHY Observed: 07/11/2018 Status: F Source: [facility] 7:[address] [facility] ENTEROGRAPHY Ordering Physician: Nolvia Pierson MD 07/11/2018 12:00 AM COMPUTED TOMOGRAPHIC ENTEROGRAPHY Clinical Statement: Ulcerative colitis, abdominal tenderness TECHNIQUE: 3.75 mm thick axial images of the abdomen and pelvis were obtained following the administration of 100 cc of Isovue 370 intravenous contrast and Volumen oral contrast. There were no prior studies available for comparison. FINDINGS: The lung bases show no acute abnormalities. The liver, spleen and pancreas show no acute abnormalities. There is a small cyst or hemangioma in segment VII of the liver posteriorly. The gallbladder is surgically absent. No ductal dilatation is shown. The adrenal glands are unremarkable. The kidneys enhance normally with no hydronephrosis. No free fluid is identified. No adnexal mass lesions are present. The aorta shows no acute abnormalities. There are degenerative changes in the spine. There is no evidence of bowel obstruction. The terminal ileum is unremarkable. There is mild prominence of the wall of the ascending and transverse colon with a slight loss of the haustral pattern compatible with the patient's history of ulcerative colitis. There are areas of minimal adjacent soft tissue stranding. There are densities within the cecum and ascending colon having the appearance of an ingested pills. The small bowel shows no acute abnormalities. IMPRESSION: Mild prominence of the wall of the ascending and transverse colon with a diminished haustral pattern and minimal adjacent soft tissue stranding compatible with the patient's history of ulcerative colitis. ---- Electronic Signature on File ---- Signed By: Lois Andrea MD FACR [email or web address] Dictated: 07/12/2018 10:39 AM Signed: 07/12/2018 10:51 AM Reported By: LOIS ANDREA M.D. Signed By: LOIS ANDREA M.D. Observed: 07/04/2018 Status: F Source: [place] URINE CULTURE 10:16 AM [facility] REPOSITORY Sp. Request/Comment: - Specimen received in preservative Culture Result - No growth (<1,000 CFU/ml) Performed By: #### URCUL #### [facility] [address], [place] [address] PROGRESS Observed: 07/04/2018 Status: COMPLETED Source: [place] 10:11 AM [facility] REPOSIT[facility] HNO ID: [id number] Author: Yara Lowry Service: (none) Author Type: Physician Underwriting Manager Type: Progress Notes Filed: 07/04/2018 10:49 AM Note Text: 07/04/2018 Patient presents with: Acute Visit: uti symptoms; burning with urnination SUBJECTIVE: This is a 62 year old that is here today for Complaint(s) of dysuria and vaginal itching x 2 days. Patient notes burning in the vaginal area after urination. No increased frequency. Currently on doxycycline for URI sx. Denies fever/chills, vomiting, back pain, abdominal pain, abnormal vaginal discharge, new sexual partners. . PAST MEDICAL HISTORY Diagnosis Date - Back pain - Esophageal reflux - Essential hypertension, benign - Family history of diabetes mellitus (DM) 06/28/2009 - Major depressive disorder, recurrent episode, unspecified - MVP (mitral valve prolapse) - Poorly controlled severe persistent asthma without complication 05/201306/15/2017 FEV1 = 0.92L, +16% post BD. Sherry 177. - Ulcerative colitis, unspecified 1977 - Unspecified sleep apnea 2003 doesn't tolerate CPAP ALLERGIES Patient has no known allergies. MEDICATIONS Current Outpatient Prescriptions: DOXYCYCLINE HYCLATE ORAL Take by mouth. budesonide-formoterol (SYMBICORT) 160-4.5 mcg/actuation inhaler Inhale 2 Puffs as instructed twice daily. With Aerochamber. albuterol (PROVENTIL) 2.5 mg /3 mL (0.083 %) nebulizer solution Use 3 mL via nebulizer every 4 hours as needed. OVER 5-15 MINUTES. FOR WHEEZING AND SHORTNESS OF BREATH. furosemide (LASIX) 40 mg tablet Take 1 tablet by mouth once daily. HYDROcodone-homatropine (HYDROMET) 5-1.5 mg/5 mL syrup albuterol HFA (VENTOLIN HFA) 90 mcg/actuation inhaler Inhale 2 Puffs as instructed every 4 hours as needed for Wheezing/Shortness of Breath. potassium chloride ER (K-DUR, KLOR-CON) [address] (PROTONIX) 40 mg tablet Take 1 tablet by mouth once daily. (may use generic) metoprolol tartrate, short acting, (LOPRESSOR) 50 mg tablet TAKE 1/2 TABLET BY MOUTH TWICE DAILY. TAKE 25 MG (HALF OF A 50 MG TABLET) venlafaxine XR (EFFEXOR XR) 150 mg 24 hr capsule TAKE 1 CAPSULE BY MOUTH ONCE DAILY. ergocalciferol, vitamin D2, (DRISDOL) 50,000 unit capsule Take one capsule by mouth twice a week. sertraline (ZOLOFT) 50 mg tablet Take 1 tablet by mouth once daily. TAKE ONE PILL ONCE A DAY. hydrochlorothiazide (HYDRODIURIL, ESIDRIX) 25 mg tablet Take 1 tablet by mouth once daily. No current facility-administered medications for this visit. 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 Social History Main Topics Smoking status: Never Smoker Smokeless tobacco: Never Used Comment: Parents both smoked in childhood home. 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 OBJECTIVE: BP 122/86 Pulse 84 Temp 36.8 ?C (98.3 ?F) (Left Tympanic) Resp 16 Wt 115.1 kg (253 lb 12.8 oz) LMP 08/22/2010 SpO2 99% BMI 46.42 kg/m? APPEARANCE Well appearing, alert, in no acute distress, well-hydrated, well nourished. exam-pateint declines today ASSESSMENT/PLAN: 1. Burning with urination - ICD9: 788.1, ICD10: R30.0 (primary diagnosis) acute - UA positive for hematuria. Hold on abx pending culture - Send urine for culture - Patient education for prevention given - UA DIP, URINE (POC) - URINE CULTURE 2. Vaginal itching - ICD9: 698.1, ICD10: N89.8 suspect vaginitis-yeast infection Recommend PROGRAMMING INSTRUCTOR exam if sx persisjting >5 days, sooner if worsening - FLUCONAZOLE 150 MG TABLET The patient indicates understanding of these issues and agrees with the plan. Reviewed red flags and when to seek care sooner. MEGA Hoffman Observed: 07/04/2018 Status: COMPLETED Source: [place] 10:00 AM [facility] REPOSITORY Office Visit (WSTR) STACIE NICHOLS ([id number]) 1955 F Date Time Provider Department 07/04/18 10:00 AM YARA LOWRY) [facility] During your visit today, we recorded the following information about you: Temperature Pulse Respiration Blood pressure 98.3 degrees 84/minute 16/minute 122/86 Weight 115.1 kg Yara Lowry PA-C 07/04/2018 10:49 AM Signed 07/04/2018 Patient presents with: Acute Visit: uti symptoms; burning with urnination SUBJECTIVE: This is a 62 year old that is here today for Complaint(s) of dysuria and vaginal itching x 2 days. Patient notes burning in the vaginal area after urination. No increased frequency. Currently on doxycycline for URI sx. Denies fever/chills, vomiting, back pain, abdominal pain, abnormal vaginal discharge, new sexual partners. . PAST MEDICAL HISTORY Diagnosis Date - Back pain - Esophageal reflux - Essential hypertension, benign - Family history of diabetes mellitus (DM) 06/28/2009 - Major depressive disorder, recurrent episode, unspecified - MVP (mitral valve prolapse) - Poorly controlled severe persistent asthma without complication 05/201306/15/2017 FEV1 = 0.92L, +16% post BD. Sherry 177. - Ulcerative colitis, unspecified 1977 - Unspecified sleep apnea 2003 doesn't tolerate CPAP ALLERGIES Patient has no known allergies. MEDICATIONS Current Outpatient Prescriptions: DOXYCYCLINE HYCLATE ORAL Take by mouth. budesonide-formoterol (SYMBICORT) 160-4.5 mcg/actuation inhaler Inhale 2 Puffs as instructed twice daily. With Aerochamber. albuterol (PROVENTIL) 2.5 mg /3 mL (0.083 %) nebulizer solution Use 3 mL via nebulizer every 4 hours as needed. OVER 5-15 MINUTES. FOR WHEEZING AND SHORTNESS OF BREATH. furosemide (LASIX) 40 mg tablet Take 1 tablet by mouth once daily. HYDROcodone-homatropine (HYDROMET) 5-1.5 mg/5 mL syrup albuterol HFA (VENTOLIN HFA) 90 mcg/actuation inhaler Inhale 2 Puffs as instructed every 4 hours as needed for Wheezing/Shortness of Breath. potassium chloride ER (K-DUR, KLOR-CON) [address] (PROTONIX) 40 mg tablet Take 1 tablet by mouth once daily. (may use generic) metoprolol tartrate, short acting, (LOPRESSOR) 50 mg tablet TAKE 1/2 TABLET BY MOUTH TWICE DAILY. TAKE 25 MG (HALF OF A 50 MG TABLET) venlafaxine XR (EFFEXOR XR) 150 mg 24 hr capsule TAKE 1 CAPSULE BY MOUTH ONCE DAILY. ergocalciferol, vitamin D2, (DRISDOL) 50,000 unit capsule Take one capsule by mouth twice a week. sertraline (ZOLOFT) 50 mg tablet Take 1 tablet by mouth once daily. TAKE ONE PILL ONCE A DAY. hydrochlorothiazide (HYDRODIURIL, ESIDRIX) 25 mg tablet Take 1 tablet by mouth once daily. No current facility-administered medications for this visit. 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 Social History Main Topics Smoking status: Never Smoker Smokeless tobacco: Never Used Comment: Parents both smoked in childhood home. 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 OBJECTIVE: BP 122/86 Pulse 84 Temp 36.8 ?C (98.3 ?F) (Left Tympanic) Resp 16 Wt 115.1 kg (253 lb 12.8 oz) LMP 08/22/2010 SpO2 99% BMI 46.42 kg/m? APPEARANCE Well appearing, alert, in no acute distress, well- hydrated, well nourished. exam-pateint declines today ASSESSMENT/PLAN: 1. Burning with urination - ICD9: 788.1, ICD10: R30.0 (primary diagnosis) acute - UA positive for hematuria. Hold on abx pending culture - Send urine for culture - Patient education for prevention given - UA DIP, URINE (POC) - URINE CULTURE 2. Vaginal itching - ICD9: 698.1, ICD10: N89.8 suspect vaginitis-yeast infection Recommend PROGRAMMING INSTRUCTOR exam if sx persisjting >5 days, sooner if worsening - FLUCONAZOLE 150 MG TABLET The patient indicates understanding of these issues and agrees with the plan. Reviewed red flags and when to seek care sooner. Yara Lowry PA-C Referring Provider: SELF [200] Allergies As of Date: 07/04/2018 (No Known Allergies) Date Reviewed: 07/04/2018 Reviewed by: Martha Mcfarlane Ma - Fully Assessed Reason for Visit: Acute Visit [896] Cmt: uti symptoms; burning with urnination Primary Visit Diagnosis:Burning with urination [R30.0] Other Visit Diagnosis:Vaginal itching [N89.8] Order(s):UA DIP, URINE (POC) [9900550] Order #: [id number]. #:[id number] URINE CULTURE [SQURCUL] Order #: [id number] fluconazole (DIFLUCAN) 150 mg tabletTake 1 tablet by mouth one time only for 1 dose. Repeat in 3 days as needed.Disp: 2 tabletRfl: 0 Prescriptions as of 07/04/2018 Sig: DOXYCYCLINE HYCLATE ORAL Take by mouth. BUDESONIDE-FORMOTEROL HFA 160* Inhale 2 Puffs as instructed * ALBUTEROL SULFATE 2.5 MG/3 ML* Use 3 mL via nebulizer every * FUROSEMIDE 40 MG TABLET Take 1 tablet by mouth once d* HYDROCODONE-HOMATROPINE 5 MG-* ALBUTEROL SULFATE HFA 90 MCG/* Inhale 2 Puffs as instructed * POTASSIUM CHLORIDE ER 20 MEQ * PANTOPRAZOLE 40 MG TABLET,DEL* Take 1 tablet by mouth once d* METOPROLOL TARTRATE 50 MG TAB* TAKE 1/2 TABLET BY MOUTH TWIC* VENLAFAXINE ER 150 MG CAPSULE* TAKE 1 CAPSULE BY MOUTH ONCE * ERGOCALCIFEROL (VITAMIN D2) 5* Take one capsule by mouth twi* SERTRALINE 50 MG TABLET Take 1 tablet by mouth once d* HYDROCHLOROTHIAZIDE 25 MG TAB* Take 1 tablet by mouth once d* FLUCONAZOLE 150 MG TABLET Take 1 tablet by mouth one ti* Problem List As Of Date 07/04/2018 Noted Resolved Ulcerative colitis (HCC) [K51.90] INVALID FOR* Priority: Moderate More... Major depressive disorder, recurrent episode (H* Priority: B Esophageal reflux [K21.9] Priority: B Essential hypertension, benign [I10] Priority: A Allergic rhinitis, cause unspecified [J30.9] 06/11/2017 Sleep apnea [G47.30] Priority: B More... Obesity, unspecified [E66.9] INVALID FOR* Mitral valve disorder [I05.9] INVALID FOR* Priority: A More... Diastolic dysfunction [I51.9] INVALID FOR* More... Family history of diabetes mellitus (DM) [Z83.3]INVALID FOR*11/16/2015 Routine general medical examination at a health*INVALID FOR*11/16/2015 Class: Chronic More... Routine gynecological examination [Z01.419] INVALID FOR*11/16/2015 Class: Chronic More... Vitamin D deficiency [E55.9] INVALID FOR* RUQ abdominal mass [R19.01] INVALID FOR* Ulcerative (chronic) proctitis (HCC) [K51.20] INVALID FOR* Lumbar radiculopathy [M54.16] INVALID FOR* Poorly controlled severe persistent asthma with*INVALID FOR* More... Prescriptions ordered this encounter Disp Refills Start End FLUCONAZOLE 150 MG TABLET 2 ta* 0 07/04/2018 07/04/2018 Route: ORAL Sig: Take 1 tablet by mouth one time only for 1 dose. Repeat in 3 days as needed. Encounter Status:Closed by YARA LOWRY PA-C on 07/04/18 CBC W/DIFF, AUTOMATED Collected: 06/01/2018 Status: F Source: [place] 11:17 AM [facility] REPOSITORY TYPE CODE TESTS RESULT OUT OF RANGE REFERENCE UNITS LAB L100.1000 4.4-11.0 K/mm3 Normal WBC 6.6 LAB L100.1200 4.2-5.4 M/mm3 Normal RBC 4.78 LAB L100.1300 12.0-15.0 g/dl Normal HGB 14.6 LAB L100.1400 37-47 % Normal HCT 43.9 LAB L100.1500 81-99 fL Normal MCV 91.8 LAB L100.1600 27.0-32.0 pg Normal MCH 30.5 LAB L100.1700 32-36 g/gl Normal MCHC 33.3 LAB L100.1810 11.6-14.6 % Normal RDW CV 13.1 LAB L100.1820 35.1-43.9 fl Normal RDW SD 43.6 LAB L100.1900 150-450 K/mm3 Normal PLT 209 LAB L100.2000 6.2-12.0 fl Normal MPV 10.7 LAB L100.2100 47-70 % Normal NEUT% 53.5 LAB L100.2200 19-41 % Normal LY% 34.7 LAB L100.2300 0-10 % Normal MONO% 6.9 LAB L100.2400 0-5 % Normal EO% 3.9 LAB L100.2500 0-1 % Normal BASO% 0.8 LAB L100.2550 0.0-0.9 % Normal IM GRAN % 0.200 Result Comment: IG% - Immature Granulocytes (promyelocytes, myelocytes and metamyelocytes) > 1% indicates that a LEFT SHIFT is Present. LAB L100.2620 2.0-7.7 X10 3/uL Normal Absolute Neut 3.5 LAB L100.2720 0.83-4.51 X10 3/ul Normal Absolute Lymph 2.30 Performed By: #### L100.0100 #### [facility] [address] [place], [place], [address] COMPREHENSIVE METABOLIC Collected: 06/01/2018 Status: F Source: [facility] 11:17 AM [facility] REPOSITORY TYPE CODE TESTS RESULT OUT OF RANGE REFERENCE UNITS LAB L501.0100 74-106 mg/dL Normal GLU 95 Result Comment: Please note revised GLUCOSE reference range effective 2017. LAB L501.1000 7-18 mg/dL Normal BUN 11 LAB L501.1100 0.55-1.02 mg/dL Normal CREAT,SERUM 0.74 Result Comment: The validity of the calculated GFR AND GFRAA in patients over 70 years has not been determined. Clinical correlation is essential. LAB L501.1110 >60 mL/min Normal EST GFR 85 Result Comment: Non- GFR Calc LAB L501.1115 >60 mL/min Normal EST GFR - AA 103 Result Comment: GFR Calc LAB L501.1300 10-20 RATIO Normal BUN/CRE 14.9 LAB L501.1500 6.4-8.2 g/dL T Normal PROT 6.9 LAB L501.1800 3.2-5.0 g/dL Normal ALB 3.6 LAB L501.1950 2.2-4.2 g/dL Normal GLOB 3.3 LAB L501.2000 0.9-2.4 RATIO Normal A/G 1.1 LAB L501.2200 8.5-10.1 mg/dL CA Normal 8.9 LAB L501.4100 15-37 U/L Normal AST 17 LAB L501.4305 45-117 U/L Normal ALK P 98 LAB L501.4405 13-56 U/L Normal ALT 29 LAB L501.4600 0.20-1.00 mg/dL T Normal BILI 0.60 LAB L501.5300 136-145 mmol/L NA Normal 139 LAB L501.5600 3.5-5.1 mmol/L Low K 3.3 LAB L501.5900 98-107 mmol/L CL Normal 102 LAB L501.6100 21.0-32.0 mmol/L Normal CO2 27.0 LAB L501.6200 5-15 Normal GAP 10 Performed By: #### L500.4050, L501.9520, L506.0400 #### [facility] [address], [place], [id number] THYROID STIM HORMONE Collected: 06/01/2018 Status: F Source: [place] ([facility]) 11:17 AM [facility] REPOSITORY TYPE CODE TESTS RESULT OUT OF RANGE REFERENCE UNITS LAB L501.9520 0.358-3.74 uIU/mL Normal TSH 1.75 Performed By: #### L500.4050, L501.9520, L506.0400 #### [facility] [address] [place], [address] T4 FREE DIRECT Collected: 06/01/2018 Status: F Source: [place] 11:17 AM [facility] REPOSITORY TYPE CODE TESTS RESULT OUT OF RANGE REFERENCE UNITS LAB L506.0400 0.76-1.46 ng/dL Normal T4 FREE 1.11 DIRECT Performed By: #### L500.4050, L501.9520, L506.0400 #### [facility] [address], [address] Observed: 06/01/2018 Status: F Source: [place] CULTURE, URINE 11:17 AM [facility] REPOSITORY Urine Culture Below infection level. ORGANISM 1: Mixed Gram Pos AND Gram Neg Org [place] Count 1000-10,000 MIX CULTURE Mixed contaminants. Submit a new specimen if indicated. Performed By: #### M100.0650 #### [facility] [address], [address] VITAMIN D,25 HYDROXY Collected: 04/12/2018 Status: F Source: [place] 9:39 AM [facility] REPOSITORY TYPE CODE TESTS RESULT OUT OF RANGE REFERENCE UNITS LAB L506.1000 29.95-100.01 ng/mL Normal Vitamin D 34.2 25-OH Result Comment: Vitamin D 25(OH) Status Range Deficiency <20 ng/mL (50nmol/L) Insuffciency 20 - 30 ng/mL (50 - 75 nmol/L) Sufficiency 30 - 100 ng/mL (75 - 250 nmol/L) Toxicity >100 ng/mL (>250 nmol/L) Performed By: #### L506.1000 #### [facility] [address], [address] ALLERGIES ALLERGIES DATE TYPE / CODE NAME / CODE REACTION SEVERITY SOURCE 09/03/2018 Drug No Known Unknown [facility] Allergy/416 Allergies/K07158 [facility] 155001(SNOM 0388(RXNORM) Repository ED CT) Drug NO KNOWN [facility] Class/62319 ALLERGIES [place] 1003(SNOMED Repository CT) ENCOUNTERS ENCOUNTERS ADMIT/DISCHARGE ACCOUNT ADMITTING ENCOUNTER LOCATION SOURCE NUMBER CLASS 09/16/2018/09/16/19 [id number] Ambulatory [address] [place] Repository 09/16/2018 [id number] Ambulatory [facility] ing:LAB Repository 09/10/2018 [id number] [facility] ing:CVS Repository 09/03/2018 [id number] [facility] ing:RAD Repository 09/03/2018/09/03/19 [id number] Ambulatory BMSBuilding:B Ana María [address] MS.[facility] Repository 09/03/2018 [id number] Ambulatory BMSBuilding:Donna Craig MS.[facility] Repository 08/31/2018 [id number] Ambulatory [facility] ing:LABSPEC Repository 08/31/2018/09/01/19 [id number] Ambulatory [address] Repository 08/12/2018/08/13/20 [id number] Ambulatory [address] Repository 07/11/2018 [id number] Ambulatory [facility] g:H.CT Repository 07/04/2018/07/08/20 [id number] Ambulatory [address] Repository 06/01/2018 [id number] Ambulatory [facility] ing:BFHLAB Repository 04/12/2018 [id number] [facility] ing:LAB.FUTUR Repository E 10/06/2017 [id number] Ambulatory BMSBuilding:Donna Gotti MS.[facility] Repository PAYERS PAYERS ENCOUNTER GUARANTOR PAYER SUBSCRIBER SOURCE 09/16/2018 STACIE L Primary STACIE L Ana María [id number] TR [facility] [place] MEDICAREPolicy [id number] Hospital [address]Evl: (330) Number: Repository [phone] () [id number] Date:9456-24-85UF [address] [place] [address]ZW: 09/16/2018 Secondary NOT GIVENUNK Ana María Insurance:SELF PAY [facility] Number: Effective Repository Date:2018-09-16 09/10/2018 STACIE L Primary STACIE L Ana María [id number] TR Insurance[facility] [place] MEDICAREPolicy [id number] Hospital [address]Htx: (330) Number: Repository [phone] () [id number] Date:9902-60-42WE [address] [address]JJ: 09/10/2018 Secondary STACIE L Ana María Insurance:MEDICARE MEHERGDOB: Community PART A [facility] [id number] Hospital Number: Repository [id number] Date:2018-09-03 09/10/2018 Tertiary NOT GIVENUNK Ana María Insurance:SELF PAY [facility] Number: Effective Repository Date:2018-09-03 09/03/2018 STACIE L Primary STACIE L Ana María [id number] TR Insurance:[facility] C[facility] MEHERGDOB: [place] MEDICAREPolicy [id number] Hospital [address]Skt: (330) Number: Repository [phone] () [id number] Date:6614-01-16AL [address] [address]NM: 09/03/2018 Secondary STACIE L Ana María Insurance:MEDICARE MEHERGDOB: [facility] PART A [facility] [id number] Hospital Number: Repository [id number] Date:2018-09-03 09/03/2018 Tertiary NOT GIVENUNK Ana María Insurance:SELF PAY [facility] Number: Effective Repository Date:2018-09-03 09/03/2018 STACIE L Primary STACIE L Craig [id number] TR Insurance:[facility] C[facility] MEHERGDOB: [place] MEDICAREPolicy [id number] Hospital [address]Irn: (330) Number: Repository [phone] () [id number] Date:2935-19-64BI [address] [address]LD: 09/03/2018 Secondary NOT GIVENUNK Ana María Insurance:SELF PAY [facility] Number: Effective Repository Date:2018-09-03 09/03/2018 STACIE L Primary STACIE L Craig [id number] TR Insurance:[facility] C[facility] MEHERGDOB: [place] MEDICAREPolicy [id number] Hospital [address]Ndp: (330) Number: Repository [phone] () [id number] Date:3189-98-06QH [address] [place] [address]JC: 09/03/2018 Secondary NOT GIVENUNK Craig Insurance:SELF PAY [facility] Number: Effective Repository Date:2018-09-03 08/31/2018 STACIE L Primary STACIE L Craig [id number] TR [facility] MEHERGDOB: [address] [facility] [id number] Hospital [address]Tqq: (330) Number: Repository [phone] () [id number] Date:7483-59-33TK [address] [address]UP: 08/31/2018 Secondary NOT GIVENUNK Ana María Insurance:SELF PAY [facility] Number: Effective Repository Date:2018-08-31 07/11/2018 STACIE L Primary STACIE L [facility] [id number] TWP Insurance: [place] [address]Jxw: [facility] Number: [id number] () Date:8700-34-73XH [address] [address]ZI: 06/01/2018 STACIE L Primary STACIE L Ana María [id number] Insurance: [facility] *Not [id number] contracted*Policy Repository [address]Xjl: 330) Number: [phone] () [id number] Date:4348-97-12JJ [address] [place] [address]QI: 06/01/2018 Secondary NOT GIVENUNK Ana María Insurance:SELF PAY [facility] Number: Effective Repository Date:2018-06-01 04/12/2018 STACIE L Primary STACIE L Ana María [id number] Insurance: [facility]GD[facility] *Not [id number] contracted*Policy Repository [address]Oxs: 330) Number: [phone] () [id number] Date:7853-47-97TZ [address] [address] [address]EU: 04/12/2018 Secondary NOT GIVENUNK Craig Insurance:SELF PAY [facility] Number: Effective Repository Date:2018-03-30 10/06/2017 Stefano G Primary STACIE L Craig [id number] Tr Insurance:TOMASZ CASHGDOB: [address] EXCHANGE [facility] [id number] Hospital [address]Xxi: (330) Number: Repository [phone] () [id number] Date:6274-03-43TS [address] [place] [address]KN: 10/06/2017 Secondary NOT GIVENUNK Ana María Insurance:SELF PAY [facility] Number: Effective Repository Date:2017-07-30
== END ==
PROVIDERS: Family Provider Family Medicine; PCP Family Medicine; Referring Provider Internal Medicine Cardiovascular Disease; Visit Provider Internal Medicine Cardiovascular Disease
DX: R06.00 Dyspnea, unspecified (principal)
CPT/HCPCS: 93306; Q9957; A4216; C8929

== ENCOUNTER → 2018-09-16 12:37 | Outpatient (CLI) | payer MEDICARE, SELFPAY ==
[2018-09-03 13:20] VITALS: BMI 46.4
[2018-09-16 13:50] LABS: Anion Gap 9 (5-15); BUN 13 mg/dL (7-18); Calcium,Total 8.2 mg/dL (8.5-10.1); Chloride 105 mmol/L (98-107); Creatinine, Serum 0.65 mg/dL (0.55-1.02); EST Glomerular Filtration Rate 98 mL/min (>60); Est Glom Filt Rate - Afr Amer 119 mL/min (>60); Glucose 108 mg/dL (74-106); Potassium 3.2 mmol/L (3.5-5.1); Sodium Level 141 mmol/L (136-145)
== END ==
PROVIDERS: Family Provider Family Medicine; PCP Family Medicine; Referring Provider Internal Medicine Cardiovascular Disease; Visit Provider Internal Medicine Cardiovascular Disease
DX: I47.1 Supraventricular tachycardia (principal); I34.0 Nonrheumatic mitral (valve) insufficiency; I34.1 Nonrheumatic mitral (valve) prolapse; R06.00 Dyspnea, unspecified
CPT/HCPCS: 36415; 80048

== ENCOUNTER → 2018-10-04 11:57 | Outpatient (CLI) | payer MEDICARE, SELFPAY ==
[2018-09-03 13:20] VITALS: BMI 46.4
[2018-10-04 12:19] LABS: Absolute Eosinophil Count 0.24 X10^3/uL (0.0-0.23)
== END ==
PROVIDERS: Family Provider Family Medicine; PCP Family Medicine
DX: J45.51 Severe persistent asthma with (acute) exacerbation (principal)
CPT/HCPCS: 85048

== ENCOUNTER → 2018-11-09 08:10 | Outpatient (CLI) | payer MEDICARE, SELFPAY ==
[2018-09-03 13:20] VITALS: BMI 46.4
--- NOTE | 2018-11-09 08:13 | CT_ITS ---
STUDY: CT MAXILLOFACIAL SINUSES REASON FOR EXAM: Female, 63 years old. Chronic sinusitis. RADIATION DOSAGE (If Supplied By Facility): CTDIvol = ( 33.06 ) mGy, DLP = ( 759.47 ) mGycm TECHNIQUE: The patient was scanned in a multi detector CT scanner. High resolution axial imaging was performed without the administration of intravenous contrast material. Sagittal and coronal images were reconstructed. Individualized dose optimization techniques were used for this CT. COMPARISON: None. FINDINGS: FRONTAL SINUSES: Normal aeration, without mucosal inflammatory disease. ETHMOIDAL SINUSES: Normal aeration, without mucosal inflammatory disease. MAXILLARY SINUSES: Mild mucosal thickening in the lower aspects of both maxillary sinuses. 2 cm mucous retention cyst in the left maxillary sinus. No air-fluid levels. SPHENOIDAL SINUSES: Prominent soft tissue density in the left sphenoid sinus. No air-fluid level. There is patency of the left maxillary infundibuli. There is obstruction of the right maxillary ostiomeatal complex from mucosal thickening. Normal bilateral middle turbinates. Normal bilateral inferior turbinates. Normal midline nasal septum. There is patency of the bilateral nasal airways. The visualized osseous structures are normal. The visualized bilateral orbital contents are normal. CT/Sinus/Facial Bone IMPRESSION: No acute sinusitis. Chronic changes as above particularly in both maxillary sinuses and sphenoid sinuses. Electronically Signed: Jose Vyas MD at 15:09 EDT , Service support ,
== END ==
PROVIDERS: Family Provider Family Medicine; PCP Family Medicine; Referring Provider Otolaryngology; Visit Provider Otolaryngology
DX: J32.9 Chronic sinusitis, unspecified (principal)
CPT/HCPCS: 70486

== ENCOUNTER → 2019-05-17 10:31 | Outpatient (CLI) | payer MEDICARE, SELFPAY ==
[2018-12-01 09:52] VITALS: BMI 45.7
== END ==
PROVIDERS: Family Provider Family Medicine; PCP Family Medicine; Visit Provider Family Medicine
DX: R35.0 Frequency of micturition (principal)
CPT/HCPCS: 87086; 87088

== ENCOUNTER → 2019-06-13 09:08 | Outpatient (CLI) | payer MEDICARE, SELFPAY ==
[2018-12-01 09:52] VITALS: BMI 45.7
== END ==
PROVIDERS: Family Provider Family Medicine; PCP Family Medicine
DX: K51.00 Ulcerative (chronic) pancolitis without complications (principal)
CPT/HCPCS: 87493

== ENCOUNTER → 2019-06-28 10:20 | Outpatient (CLI) | payer MEDICARE, SELFPAY ==
[2019-06-28 07:49] VITALS: BMI 46.6
[2019-06-28 11:16] LABS: BNP,B-Type NATRIURETIC PEPTIDE 78.8 pg/mL (0-100)
[2019-06-28 11:18] LABS: Anion Gap 6 (5-15); BUN 12 mg/dL (7-18); BUN/Creat Ratio 19.3 RATIO (10-20); Chloride 105 mmol/L (98-107); Creatinine, Serum 0.62 mg/dL (0.55-1.02); EST Glomerular Filtration Rate 103 mL/min (>60); Est Glom Filt Rate - Afr Amer 125 mL/min (>60); Glucose 107 mg/dL (74-106); Potassium 4.4 mmol/L (3.5-5.1); Sodium Level 140 mmol/L (136-145)
== END ==
PROVIDERS: Family Provider Family Medicine; PCP Family Medicine; Referring Provider Internal Medicine Cardiovascular Disease; Visit Provider Internal Medicine Cardiovascular Disease
DX: R06.09 Other forms of dyspnea (principal)
CPT/HCPCS: 36415; 80048; 83880

== ENCOUNTER → 2019-07-12 07:55 | Outpatient (CLI) | payer MEDICARE, SELFPAY ==
[2019-06-28 07:49] VITALS: BMI 46.6
--- NOTE | 2019-07-12 07:57 | ECHOCS_ITS ---
Reason For Study: MURMUR Procedure This was a 2D Doppler, Color Flow transthoracic echocardiogram. The study was technically difficult. Contrast injection was performed. Exam performed in department. Left Ventricle Normal LV size. Left ventricular systolic function is normal. The estimated ejection fraction is 60 %. No regional wall motion abnormalities noted. Right Ventricle Normal RV size. Normal systolic function. Atria The left atrium is mildly enlarged. Normal right atrium. Mitral Valve Mild mitral valve prolapse. Mild-Moderate (1-2+) eccentric mitral valve insufficiency. Tricuspid Valve Normal tricuspid valve. Mild (1+) tricuspid valve insufficiency. Pulmonary artery systolic pressure is 30 mmHg. Aortic Valve Normal aortic valve. Trisinus/trileaflet aortic valve. Pulmonic Valve Normal pulmonic valve. Great Vessels Normal aortic root. The pulmonary artery is normal size. Normal inferior vena cava. Pericardium/Pleural No pericardial effusion. Medication Definity5.0ml given slow IV push to enhance endocardial definition. MMode/2D Measurements & Calculations LVIDd: 5.5 cm IVSd: 0.93 cm Ao root diam: 3.5 cm LVIDs: 3.9 cm LVPWd: 1.1 cm RVDd: 3.3 cm FS: 29.2 % LAV(MOD-bp): 84.7 ml LA A4 area: 25.1 cm2 LA dimension(2D): 5.1 cm LAV(MOD-bp) Indexed: 40.6 ml/m2 LAV(MOD-sp2): 85.7 ml LAV(MOD-sp4): 80.9 ml RA A4 area: 16.5 cm2 Doppler Measurements & Calculations Ao V2 max: 141.3 cm/sec LV V1 max: 131.1 cm/sec PA V2 max: 100.4 cm/sec Ao max P.0 mmHg LV V1 max P.9 mmHg TR max dayanara: 254.8 cm/sec TR max P.0 mmHg Interpretation Summary Normal LV size. Left ventricular systolic function is normal. The estimated ejection fraction is 60 %. Mild mitral valve prolapse. Mild-Moderate (1-2+) eccentric mitral valve insufficiency. The extent of the MVP and internal dimensions are all stable Contrast injection was performed. Compared to previous study, the left ventricular systolic function is the same.. Ordering Physician: Jorge Gutiérrez Referring Physician: OPAL COCHRAN Performed By: Donna Grant, AILINCS, RVT
== END ==
PROVIDERS: Family Provider Family Medicine; PCP Family Medicine; Referring Provider Internal Medicine Cardiovascular Disease; Visit Provider Internal Medicine Cardiovascular Disease
DX: I34.0 Nonrheumatic mitral (valve) insufficiency (principal)
CPT/HCPCS: 93306; Q9957; A4216; C8929

== ENCOUNTER → 2019-10-19 08:01 | Outpatient (CLI) | payer MEDICARE, SELFPAY ==
[2019-06-28 07:49] VITALS: BMI 46.6
--- NOTE | 2019-10-19 08:03 | CT_ITS ---
STUDY: CT BRAIN WITH AND WITHOUT CONTRAST REASON FOR EXAM: Female, 63 years old. LT RETRO ORBITAL CHIN RADIATION DOSAGE (If Supplied By Facility): CTDIvol = ( 44.99 ) mGy, DLP = ( 1513.48 ) mGycm TECHNIQUE: Transaxial CT imaging of the brain was performed pre and post contrast administration. The examination was performed with intravenous administration of IV 50mL Isovue-370. Individualized dose optimization techniques were used for this CT. COMPARISON: None. FINDINGS: The lourdes, medulla, and cerebellum appear to be normal. The ventricles and sulci are normal in size and shape. The basal ganglia appear to be normal.No enhancing masses or lesions are identified.The inner and outer tables of the skull are intact. The frontal, ethmoid, maxillary, and sphenoid sinuses are normal. The mastoid air cells are normal. CT/Brain/Head W/WO Contrast IMPRESSION: Normal unenhanced and enhanced CT scan of the brain. Electronically Signed: Damien Tomlinson, at 8:49 EST Tel , Service support ,
== END ==
PROVIDERS: PCP Family Medicine; Referring Provider Family Medicine; Visit Provider Family Medicine
DX: G43.109 Migraine with aura, not intractable, without status migrainosus (principal); H02.409 Unspecified ptosis of unspecified eyelid; H53.9 Unspecified visual disturbance
CPT/HCPCS: 70470; Q9967

== ENCOUNTER → 2020-02-07 10:56 | Outpatient (CLI) | payer MEDICARE, SELFPAY ==
[2020-01-24 13:01] VITALS: BMI 47.7
[2020-02-07 11:18] LABS: Absolute Lymphocyte Count 1.72 X10^3/uL (0.83-4.51); Basophil# 0.03 X10^3/uL; Basophil% 0.5 % (0-1); Eosinophil# 0.16 X10^3/uL; Eosinophils% 2.5 % (0-5); Hematocrit 42.9 % (37-47); Lymphocyte # 1.72 X10^3/ul (4.0); Lymphocyte % 26.8 % (19-41); Mean Corp Hgb Conc 32.6 g/dL (32-36); Mean Corpuscular Hgb 29.7 pg (27.0-32.0); Mean Corpuscular Volume 91.1 fL (81-99); Mean Platelet Vol. 9.5 fl (6.2-12.0); Monocyte# 0.51 X10^3/uL; NRBC Flagged by Analyzer 0 % (0-5); Neutrophil # 3.97 X10^3/uL (2.7-7.7); Neutrophil % 61.9 % (47-70); Platelet Count 207 K/mm3 (150-450); RBC Distribution Width CV 13.2 % (11.6-14.6); RBC Distribution Width SD 44.8 fl (35.1-43.9); Red Blood Count 4.71 M/mm3 (4.2-5.4); White Blood Count 6.4 K/mm3 (4.4-11.0)
[2020-02-07 11:35] LABS: Erythrocyte Sedimentation Rate 22 mm/hr (0-30)
[2020-02-07 11:49] LABS: Vitamin D,25 Hydroxy 50.2 ng/mL
[2020-02-07 11:59] LABS: ALB/GLOB Ratio 0.9 RATIO (0.9-2.4); AST(SGOT) 19 U/L (15-37); Alanine Aminotransfer ALT/SGPT 21 U/L (13-56); Albumin, Serum 3.2 g/dL (3.2-5.0); Alkaline Phosphatase 75 U/L (45-117); Anion Gap 8 (5-15); BUN 8 mg/dL (7-18); BUN/Creat Ratio 10.7 RATIO (10-20); Calcium,Total 8.8 mg/dL (8.5-10.1); Chloride 99 mmol/L (98-107); Creatinine, Serum 0.75 mg/dL (0.55-1.02); EST Glomerular Filtration Rate 83 mL/min (>60); Est Glom Filt Rate - Afr Amer 101 mL/min (>60); Globulin 3.5 g/dL (2.2-4.2); Glucose 111 mg/dL (74-106); Potassium 2.7 mmol/L (3.5-5.1); Protein, Total 6.7 g/dL (6.4-8.2); Sodium Level 137 mmol/L (136-145)
[2020-02-07 14:14] LABS: Amylase 43 U/L (25-115); Lipase 293 U/L (73-393)
== END ==
PROVIDERS: PCP Family Medicine
DX: K51.00 Ulcerative (chronic) pancolitis without complications (principal); E55.9 Vitamin D deficiency, unspecified; R11.0 Nausea
CPT/HCPCS: 36415; 80053; 82150; 82306; 83690; 85025; 85652; 86140

== ENCOUNTER → 2020-02-09 09:26 | Outpatient (CLI) | payer MEDICARE, SELFPAY ==
[2020-01-24 13:01] VITALS: BMI 47.7
[2020-02-09 10:18] LABS: Anion Gap 8 (5-15); BUN 12 mg/dL (7-18); BUN/Creat Ratio 18.5 RATIO (10-20); Calcium,Total 8.6 mg/dL (8.5-10.1); Chloride 105 mmol/L (98-107); Creatinine, Serum 0.65 mg/dL (0.55-1.02); EST Glomerular Filtration Rate 98 mL/min (>60); Est Glom Filt Rate - Afr Amer 118 mL/min (>60); Glucose 98 mg/dL (74-106); Sodium Level 139 mmol/L (136-145)
[2020-02-09 10:35] LABS: Hepatitis B Surface Antibody Reactive; Hepatitis B Surface Antigen Non-Reactive (Nonreactive); Rubella IgG WCH Employee 499.3 IU/mL
[2020-02-13 14:08] LABS: Hepatitis B Core Ab Total Negative (Negative); Hepatitis C Ab <0.1 s/co ratio (0.0-0.9); QNTFERON TB Mitogen Value > 10.00 IU/mL (.)
[2020-02-13 14:50] LABS: Hepatitis A AB, Total Negative (Negative); QNTIFERON TB Positive Criteria Negative (Negative); WCH EMP Rubeola Titer > 300.0 AU/mL (Immune >16.4)
== END ==
PROVIDERS: PCP Family Medicine
DX: E87.6 Hypokalemia (principal); K51.90 Ulcerative colitis, unspecified, without complications; R19.7 Diarrhea, unspecified
CPT/HCPCS: 36415; 80048; 86480; 86704; 86706; 86708; 86735; 86762; 86803; 86804; 87340

== ENCOUNTER → 2020-02-20 14:47 | Outpatient (CLI) | payer MEDICARE, SELFPAY ==
[2020-01-24 13:01] VITALS: BMI 47.7
[2020-02-20 16:05] LABS: Absolute Lymphocyte Count 1.11 X10^3/uL (0.83-4.51); Absolute Neutrophil Count 6.6 X10^3/uL (2.0-7.7); Basophil# 0.03 X10^3/uL; Basophil% 0.4 % (0-1); Eosinophil# 0.01 X10^3/uL; Eosinophils% 0.1 % (0-5); Hematocrit 43.4 % (37-47); Hemoglobin 13.5 g/dL (12.0-15.0); Lymphocyte # 1.11 X10^3/ul (4.0); Lymphocyte % 13.7 % (19-41); Mean Corp Hgb Conc 31.1 g/dL (32-36); Mean Corpuscular Hgb 29.9 pg (27.0-32.0); Mean Corpuscular Volume 96.2 fL (81-99); Mean Platelet Vol. 9.5 fl (6.2-12.0); Monocyte# 0.16 X10^3/uL; NRBC Flagged by Analyzer 0 % (0-5); Neutrophil # 6.64 X10^3/uL (2.7-7.7); Neutrophil % 81.7 % (47-70); Platelet Count 262 K/mm3 (150-450); RBC Distribution Width CV 14.6 % (11.6-14.6); RBC Distribution Width SD 50.1 fl (35.1-43.9); Red Blood Count 4.51 M/mm3 (4.2-5.4); White Blood Count 8.1 K/mm3 (4.4-11.0)
[2020-02-20 16:43] LABS: AST(SGOT) 36 U/L (15-37); Alanine Aminotransfer ALT/SGPT 68 U/L (13-56); Albumin, Serum 3.2 g/dL (3.2-5.0); Alkaline Phosphatase 127 U/L (45-117); Anion Gap 6 (5-15); BUN 19 mg/dL (7-18); BUN/Creat Ratio 23.3 RATIO (10-20); Calcium,Total 8.7 mg/dL (8.5-10.1); Chloride 109 mmol/L (98-107); Creatinine, Serum 0.82 mg/dL (0.55-1.02); EST Glomerular Filtration Rate 75 mL/min (>60); Est Glom Filt Rate - Afr Amer 91 mL/min (>60); Globulin 3.1 g/dL (2.2-4.2); Glucose 171 mg/dL (74-106); Potassium 4.2 mmol/L (3.5-5.1); Protein, Total 6.3 g/dL (6.4-8.2); Sodium Level 139 mmol/L (136-145)
== END ==
PROVIDERS: PCP Family Medicine
DX: K51.00 Ulcerative (chronic) pancolitis without complications (principal); E87.6 Hypokalemia
CPT/HCPCS: 36415; 80053; 85025

== ENCOUNTER → 2020-02-22 07:38 | Outpatient (CLI) | payer MEDICARE, SELFPAY ==
[2020-01-24 13:01] VITALS: BMI 47.7
--- NOTE | 2020-02-22 07:42 | CT_ITS ---
STUDY: CT ABDOMEN AND PELVIS WITH CONTRAST [enterography] REASON FOR EXAM: Female, 64 years old. DIARRHEA/COLITIS. This study is enterography protocol. Hx of HTN, mitral valve prolapse and cholecystectomy RADIATION DOSAGE (If Supplied By Facility): CTDIvol = ( 22.71 ) mGy, DLP = ( 2907.96 ) mGycm TECHNIQUE: Transaxial images were obtained from the dome of the diaphragm to the symphysis pubis with oral contrast. Oral and IV Breeza and 100mL Isovue-300 was administered. Sagittal and coronal images were reconstructed. Individualized dose optimization techniques were used for this CT. COMPARISON: Comparison is made with prior study dated October 13, 2010. FINDINGS: The visualized lung bases are unremarkable. Coronary artery calcification. Normal liver. There are surgical clips in the gallbladder fossa consistent with a prior cholecystectomy. Normal spleen. Normal pancreas. Normal bilateral adrenal glands. Normal right kidney. Normal left kidney. Normal visualized stomach. Normal small intestine. Normal colon. The appendix is visualized and appears normal. Normal abdominal aorta. Normal inferior vena cava. Normal retroperitoneum. Normal urinary bladder. Normal abdominal wall. There are mild degenerative changes of the visualized lumbar spine. CT/Abdomen/Pelvis WITH Contrast IMPRESSION: Fatty infiltration of the liver. Status post cholecystectomy. Electronically Signed: Nolan Bearden, at 10:04 EDT , Service support ,
== END ==
PROVIDERS: PCP Family Medicine
DX: K51.90 Ulcerative colitis, unspecified, without complications (principal); E87.6 Hypokalemia
CPT/HCPCS: 74177; Q9967

== ENCOUNTER → 2020-03-06 10:50 | Outpatient (CLI) | payer MEDICARE, SELFPAY ==
[2020-01-24 13:01] VITALS: BMI 47.7
[2020-03-06 11:50] LABS: ALB/GLOB Ratio 1.1 RATIO (0.9-2.4); AST(SGOT) 538 U/L (15-37); Alanine Aminotransfer ALT/SGPT 394 U/L (13-56); Albumin, Serum 3.2 g/dL (3.2-5.0); Alkaline Phosphatase 247 U/L (45-117); Anion Gap 6 (5-15); BUN 14 mg/dL (7-18); BUN/Creat Ratio 17.5 RATIO (10-20); Calcium,Total 8.8 mg/dL (8.5-10.1); Chloride 106 mmol/L (98-107); EST Glomerular Filtration Rate 77 mL/min (>60); Est Glom Filt Rate - Afr Amer 93 mL/min (>60); Glucose 110 mg/dL (74-106); Potassium 3.8 mmol/L (3.5-5.1); Protein, Total 6.2 g/dL (6.4-8.2); Sodium Level 139 mmol/L (136-145)
== END ==
PROVIDERS: PCP Family Medicine
DX: R74.8 Abnormal levels of other serum enzymes (principal)
CPT/HCPCS: 36415; 80053

== ENCOUNTER → 2020-03-12 09:10 | Outpatient (CLI) | payer MEDICARE, SELFPAY ==
[2020-01-24 13:01] VITALS: BMI 47.7
[2020-03-12 09:28] LABS: Absolute Lymphocyte Count 2.87 X10^3/uL (0.83-4.51); Absolute Neutrophil Count 3.4 X10^3/uL (2.0-7.7); Basophil# 0.06 X10^3/uL; Basophil% 0.8 % (0-1); Eosinophil# 0.15 X10^3/uL; Eosinophils% 2.1 % (0-5); Hematocrit 42.4 % (37-47); Hemoglobin 13.7 g/dL (12.0-15.0); Lymphocyte # 2.87 X10^3/ul (4.0); Lymphocyte % 40.1 % (19-41); Mean Corp Hgb Conc 32.3 g/dL (32-36); Mean Corpuscular Hgb 30.4 pg (27.0-32.0); Mean Corpuscular Volume 94.2 fL (81-99); Mean Platelet Vol. 9.4 fl (6.2-12.0); Monocyte# 0.56 X10^3/uL; Monocyte% 7.8 % (0-10); NRBC Flagged by Analyzer 0 % (0-5); Neutrophil # 3.43 X10^3/uL (2.7-7.7); Neutrophil % 48.1 % (47-70); Platelet Count 223 K/mm3 (150-450); RBC Distribution Width CV 14.2 % (11.6-14.6); RBC Distribution Width SD 49.3 fl (35.1-43.9); White Blood Count 7.2 K/mm3 (4.4-11.0)
[2020-03-12 10:13] LABS: ALB/GLOB Ratio 1.3 RATIO (0.9-2.4); AST(SGOT) 33 U/L (15-37); Alanine Aminotransfer ALT/SGPT 136 U/L (13-56); Albumin, Serum 3.6 g/dL (3.2-5.0); Alkaline Phosphatase 157 U/L (45-117); Anion Gap 6 (5-15); BUN 14 mg/dL (7-18); BUN/Creat Ratio 20.2 RATIO (10-20); Calcium,Total 9.1 mg/dL (8.5-10.1); Chloride 105 mmol/L (98-107); Creatinine, Serum 0.69 mg/dL (0.55-1.02); EST Glomerular Filtration Rate 91 mL/min (>60); Est Glom Filt Rate - Afr Amer 110 mL/min (>60); Globulin 2.8 g/dL (2.2-4.2); Glucose 110 mg/dL (74-106); Potassium 3.9 mmol/L (3.5-5.1); Protein, Total 6.4 g/dL (6.4-8.2); Sodium Level 139 mmol/L (136-145)
== END ==
PROVIDERS: PCP Family Medicine
DX: K51.00 Ulcerative (chronic) pancolitis without complications (principal); K76.89 Other specified diseases of liver
CPT/HCPCS: 36415; 80053; 85025

== ENCOUNTER → 2020-03-19 08:21 | Outpatient (CLI) | payer MEDICARE, SELFPAY ==
[2020-01-24 13:01] VITALS: BMI 47.7
[2020-03-19 09:23] LABS: ALB/GLOB Ratio 1.1 RATIO (0.9-2.4); AST(SGOT) 18 U/L (15-37); Alanine Aminotransfer ALT/SGPT 46 U/L (13-56); Albumin, Serum 3.3 g/dL (3.2-5.0); Alkaline Phosphatase 103 U/L (45-117); Anion Gap 7 (5-15); BUN 11 mg/dL (7-18); BUN/Creat Ratio 15.6 RATIO (10-20); Calcium,Total 8.9 mg/dL (8.5-10.1); Chloride 102 mmol/L (98-107); EST Glomerular Filtration Rate 89 mL/min (>60); Est Glom Filt Rate - Afr Amer 108 mL/min (>60); Globulin 2.9 g/dL (2.2-4.2); Glucose 109 mg/dL (74-106); Potassium 3.7 mmol/L (3.5-5.1); Protein, Total 6.2 g/dL (6.4-8.2); Sodium Level 139 mmol/L (136-145)
== END ==
PROVIDERS: PCP Family Medicine
DX: K51.00 Ulcerative (chronic) pancolitis without complications (principal)
CPT/HCPCS: 36415; 80053

== ENCOUNTER 2020-04-28 13:40 | Emergency (ER) | payer MEDICARE, SELFPAY ==
[2020-01-24 13:01] VITALS: BMI 47.7
[2020-04-28 13:42] VITALS: BP 125/43; PULSE 77; RESP 18; TEMP 36.4; O2SAT 100; BMI 47.2
--- NOTE | 2020-04-28 14:02 | RAD_ITS ---
STUDY: X-RAY - RIGHT WRIST REASON FOR EXAM: Female, 64 years old patient with right-sided wrist pain after recent fall. TECHNIQUE: 3 view(s) of the wrist were obtained. COMPARISON: Prior comparison studies are not available for review at this time. FINDINGS: There is demineralization of the radius and ulna. There is a well-corticated bony fragment near the ulnar styloid that is probably secondary to ununited fracture. There is suggestion for a chip fracture arising from the medial distal radius near the distal radioulnar articulation. Normal radiocarpal articulation. Normal distal radioulnar articulation. There is demineralization of the carpal bones. Normal carpal articulations. There is degenerative arthrosis of the carpometacarpal articulation of the thumb. Normal second through fifth carpometacarpal articulations. Normal visualized metacarpal bones. There is soft tissue swelling. RAD/Wrist min 3 Views IMPRESSION: 1. Chip fracture arising from the distal medial radius of uncertain acuity. This could be acute. 2. Ununited fracture of ulnar styloid. 3. Osteopenia. Electronically Signed: Eliane Patel MD at 15:00 EDT , Service support ,
--- NOTE | 2020-04-28 14:04 | RAD_ITS ---
STUDY: X-RAY - LEFT KNEE REASON FOR EXAM: Female, 64 years old patient with left-sided anterior knee bruising after recent fall. TECHNIQUE: 4 view(s) of the knee. COMPARISON: None. FINDINGS: Normal visualized distal femur. Normal visualized proximal tibia and fibula. Normal proximal tibiofibular articulation. There is a bone fragment located lateral to the patella and distal femur that could be the result of a chip fracture arising from the patella. There is mild degenerative arthrosis of the medial femorotibial compartment. There is mild degenerative arthrosis of the lateral femorotibial compartment. There is moderate degenerative arthrosis of the patellofemoral articulation. There is no demonstrated joint effusion. There is soft tissue contusion of the anterior knee. RAD/Knee 4 or More Views IMPRESSION: 1. Soft tissue contusion of the anterior knee with displaced possibly acute chip fracture of the patella. 2. Mild and moderate degenerative arthropathy of the left knee. Electronically Signed: Eliane Patel MD at 14:56 EDT , Service support ,
--- NOTE | 2020-04-28 14:04 | ED.DCSUM_ITS ---
History of Present Illness Chief Complaint: Fall Informant: Patient Occurred: Today Mechanism/Context: Same level fall, Trip Narrative: Patient is a 64-year-old female presenting for evaluation after mechanical fall. Patient is at the car wash when she tripped on a piece of concrete in the parking lot and fell forward. Patient tried to catch herself with her hands and landed hard on her knees as well as her right side. She is complaining of pain and swelling over her right wrist, left knee/hector as well as her right ribs. She did not hit her head. No loss of consciousness. She not any anticoagulation. She was helped up by bystanders. She took 2 Motrin before coming in which has helped with her pain. Her daughter was concerned to recommend she come to the emergency room for further evaluation. She denies associated numbness or tingling. Past Medical History - Allergies and Home Meds Allergies/Adverse Reactions: Allergies No Known Allergies Allergy (Verified 04/28/20 13:44) Primary Care Physician: Jaems Renteria MD [Primary Care Provider] - Past Medical History: - - Ulcerative colitis hypertension, mitral valve prolapse, arthritis Surgical History: noncontributory, - Smoking Status: Never smoker Review of Systems General: Denies: Chills, Fever, Sweats Eyes: Denies: Visual changes - bilaterally, Diplopia ENT: Denies: Rhinorrhea, Sore throat Cardiovascular: Reports: Chest pain - Right lower lateral ribs. Denies: Palpitations Respiratory: Denies: Dyspnea, Cough, Dyspnea on exertion Gastrointestinal: Denies: Abdominal pain, Nausea, Vomiting, Diarrhea, Melena, Hematochezia Genitourinary: Denies: Dysuria, Hematuria, Frequency Musculoskeletal: Reports: Swelling, Extremity Pain - Right wrist, left knee. Denies: Back pain Skin: Denies: Rash, Wounds Neurological: Denies: Headache, Weakness, Numbness Physical Exam Vital Signs/Narrative: Vital Signs Temp Pulse Resp BP Pulse Ox 04/28/20 13:42 97.5 F L 77 18 125/43 H 100 Inital Vital Signs reviewed: Yes General: Well nourished, Well developed Head: Normocephalic, Atraumatic Eyes: Perrl, EOMI ENT: TM's clear, No hemotympanum or drainage, No trauma Neck: Nontender, Full ROM. Negative for: Spinal Tenderness, Paraspinal Tenderness Cardiovascular: Regular rate, Regular rhythm, No murmurs Respiratory: No distress, Chest tenderness - Mild, right lower lateral ribs. No associated chest wall crepitus, ecchymosis. No flail chest Abdomen: Soft, Nontender, Nondistended, Normal bowel sounds Back: Nontender Extremeties: Left upper extremity normal. Right upper extremity. No obvious deformity. Superficial abrasion to the right olecranon process. No bony tenderness palpation. No active bleeding. Right wrist?no obvious deformity, mild swelling and bruising over the medial aspect of the wrist. No pinpoint bony tenderness. Normal range of motion. Hands are normal. Lower extremities. Right?normal, no warmth, edema or deformity. Normal range of motion. Left?superficial abrasion over the left anterior knee. No joint effusion present. Straight leg mechanism intact. Tenderness to palpation tibia but no fibular head tenderness. Associated contusion/ecchymosis of the proximal hector with area of tenderness. Skin: Normal color, No rash Neurological: Alert, Oriented x3, Cranial nerves II-XII grossly intact, Normal Strength, Normal Sensation Psychological: Normal affect Diagnostic/Tx/Re-eval Clinical Impression(s) from Imaging Studies Wrist X-Ray 04/28/20 14:02 IMPRESSION: 1. Chip fracture arising from the distal medial radius of uncertain acuity. This could be acute. 2. Ununited fracture of ulnar styloid. 3. Osteopenia. Electronically Signed: Eliane Patel MD at 15:00 EDT , Service support , Knee X-Ray 04/28/20 14:04 IMPRESSION: 1. Soft tissue contusion of the anterior knee with displaced possibly acute chip fracture of the patella. 2. Mild and moderate degenerative arthropathy of the left knee. Electronically Signed: Eliane Patel MD at 14:56 EDT , Service support , Tibia/Fibula X-Ray 04/28/20 14:04 IMPRESSION: Soft tissue contusion of the proximal anterior leg without obvious fracture. Electronically Signed: Eliane Patel MD at 14:57 EDT , Service support , - Medical Decision Making Patient is evaluated after mechanical fall. She appears nontoxic and has a normal neurologic exam. Patient states her pains are improved with Motrin. X- ray is concerning for possible chip fracture of her left patella as well as chip fracture of her distal right radius. Patient is placed in a wrist splint and given outpatient follow-up with orthopedics. She would like to follow-up with her own orthopedist, Dr. Zhou with the [facility]. She is offered pain medication but declined stating Tylenol and Motrin should be sufficient. She is given return precautions. Patient is counseled on signs and symptoms requiring return to the emergency room. Patient verbalizes agreement and understand this plan. Patient discharged home in stable and improved condition. ED Disposition - Plan for ED Patient: Disposition: Home or Assisted Living Diagnosis: Closed fracture of right distal radius, Contusion of left lower leg, initial encounter Instructions: ED EXTREMITY CONTUSION Lower, ED Fracture Upper Extremity Referrals: James Renteria MD [Primary Care Provider] - Additional Instructions: Please follow-up with your orthopedist, Dr. Zhou, in 1 week for reevaluation. You have been placed in a splint. Please keep it on as much as possible. Ice all the areas and alternate Tylenol ibuprofen for pain. Please return with any worsening symptoms.
--- NOTE | 2020-04-28 14:04 | RAD_ITS ---
STUDY: X-RAY - LEFT TIBIA AND FIBULA REASON FOR EXAM: Female, 64 years old patient with anterior knee bruising after fall. TECHNIQUE: AP and lateral view(s) of the tibia and fibula were obtained. COMPARISON: Radiographs of the left knee dated 04/28/2020. FINDINGS: The tibia is incompletely imaged on the current study. Comparison has to be made with the radiographs of the left knee obtained on same date. There are mild degenerative changes of the tibial plateau without definite fracture. The proximal fibula is not imaged in its entirety on this study. Comparison has to be made with radiograph of left knee done the same date. No obvious acute fractures of the fibula visualized. There is soft tissue contusion of the anterior proximal leg. There is a plantar calcaneal spur. RAD/Tibia & Fibula 2 Views IMPRESSION: Soft tissue contusion of the proximal anterior leg without obvious fracture. Electronically Signed: Eliane Patel MD at 14:57 EDT , Service support ,
== END 2020-04-28 15:45 | disposition home or self-care (01) ==
PROVIDERS: Emergency Provider Emergency Medicine; PCP Family Medicine
DX: S52.501A Unspecified fracture of the lower end of right radius, initial encounter for closed fracture (principal); S80.12XA Contusion of left lower leg, initial encounter; W01.0XXA Fall on same level from slipping, tripping and stumbling without subsequent striking against object, initial encounter; Y93.9 Activity, unspecified; Y92.89 Other specified places as the place of occurrence of the external cause; I10 Essential (primary) hypertension; I34.1 Nonrheumatic mitral (valve) prolapse; M17.12 Unilateral primary osteoarthritis, left knee; Z79.899 Other long term (current) drug therapy
CPT/HCPCS: 73110; 73564; 73590; 99283

== ENCOUNTER → 2020-06-15 | Outpatient (CLI) | payer MEDICARE, SELFPAY ==
[2020-06-21 15:07] LABS: HSV Culture Without Typing NEGATIVE (.)
== END | disposition home or self-care (01) ==
PROVIDERS: PCP Family Medicine; Visit Provider Obstetrics & Gynecology
DX: N76.0 Acute vaginitis (principal)
CPT/HCPCS: 87255

== ENCOUNTER → 2020-06-20 | Outpatient (CLI) | payer MEDICARE, SELFPAY | END | disposition home or self-care (01) | LOC: LABSPEC 06-21 10:39 | PROVIDERS: PCP Family Medicine; Referring Provider Family Medicine; Visit Provider Family Medicine | DX: Z03.818 Encounter for observation for suspected exposure to other biological agents ruled out (principal) | CPT/HCPCS: 87635; C9803; U0003 ==

== ENCOUNTER → 2020-06-25 07:32 | Outpatient (CLI) | payer MEDICARE, SELFPAY ==
--- NOTE | 2020-06-25 07:32 | ECHOCS_ITS ---
Version 2 Reason For Study: MVP Procedure This was a 2D Doppler, Color Flow transthoracic echocardiogram. The study was technically difficult. Contrast injection was performed. Exam performed in department. Left Ventricle Normal LV size. Mild concentric left ventricular hypertrophy. Left ventricular systolic function is normal. The estimated ejection fraction is 60 %. No regional wall motion abnormalities noted. Right Ventricle Normal RV size. Normal systolic function. Atria The left atrium is severely enlarged. The right atrium is mildly enlarged. Mitral Valve Mitral valve not well visualized. Mild-Moderate (1-2+) eccentric mitral valve insufficiency. Tricuspid Valve Normal tricuspid valve. Mild (1+) tricuspid valve insufficiency. Pulmonary artery systolic pressure is 40 mmHg. Aortic Valve The aortic valve is not well visualized. Pulmonic Valve Normal pulmonic valve. Great Vessels Normal aortic root. The pulmonary artery is normal size. Normal inferior vena cava. Pericardium/Pleural No pericardial effusion. Medication 22 gauge I.V. with prn adaptor inserted into left arm. Diluted definity 4ml given slow IV push to enhance endocardial definition. MMode/2D Measurements & Calculations LVIDd: 5.3 cm IVSd: 1.4 cm Ao root diam: 3.5 cm LVIDs: 4.1 cm LVPWd: 1.3 cm LA dimension: 5.1 cm FS: 23.1 % LAV(MOD-bp): 118.5 ml LA A4 area: 35.8 cm2 RA A4 area: 22.6 cm2 LAV(MOD-bp) Indexed: 55.4 ml/m2 LAV(MOD-sp2): 95.3 ml LAV(MOD-sp4): 135.7 ml Time Measurements MV dec time: 0.24 sec Doppler Measurements & Calculations MV E max mohan: 107.2 cm/sec Lat Peak E' Mohan: 9.0 cm/sec Med Peak E' Mohan: 8.1 cm/sec MV A max mohan: 70.2 cm/sec E/E' lat: 11.9 E/E' med: 13.3 MV E/A: 1.5 MV V2 max: 117.5 cm/sec MV P1/2t max mohan: 118.5 cm/sec Ao V2 max: 122.9 cm/sec MV max P.5 mmHg MV P1/2t: 134.4 msec Ao max P.0 mmHg MV V2 mean: 72.0 cm/sec MV dec slope: 258.2 cm/sec2 MV mean P.3 mmHg MV V2 VTI: 39.2 cm MVA(P1/2t): 1.6 cm2 LV V1 max: 92.9 cm/sec PA V2 max: 86.7 cm/sec TR max mohan: 302.5 cm/sec LV V1 max P.5 mmHg TR max P.6 mmHg Interpretation Summary Normal LV size. Mild concentric left ventricular hypertrophy. Left ventricular systolic function is normal. The estimated ejection fraction is 60 %. The left atrium is severely enlarged. The right atrium is mildly enlarged. Pulmonary artery systolic pressure is 40 mmHg. Contrast injection was performed. Ordering Physician: Jorge Gutiérrez Referring Physician: James Renteria Performed By: Brodwolf, Nate, RCS
== END ==
PROVIDERS: PCP Family Medicine; Referring Provider Internal Medicine Cardiovascular Disease; Visit Provider Internal Medicine Cardiovascular Disease
DX: R06.00 Dyspnea, unspecified (principal); I34.1 Nonrheumatic mitral (valve) prolapse
CPT/HCPCS: 93306; Q9957; A4216; C8929

== ENCOUNTER → 2020-07-03 09:07 | Outpatient (CLI) | payer MEDICARE, SELFPAY | PROVIDERS: PCP Family Medicine; Referring Provider Internal Medicine Cardiovascular Disease; Visit Provider Internal Medicine Cardiovascular Disease | DX: R06.00 Dyspnea, unspecified (principal); I34.0 Nonrheumatic mitral (valve) insufficiency; I34.1 Nonrheumatic mitral (valve) prolapse; I10 Essential (primary) hypertension | CPT/HCPCS: 87635; C9803; U0002 ==

== ENCOUNTER 2020-07-09 09:42 | Outpatient (CLI) | payer MEDICARE, SELFPAY ==
[2020-07-02 09:41] LABS: Absolute Lymphocyte Count 1.95 X10^3/uL (0.83-4.51); Absolute Neutrophil Count 2.6 X10^3/uL (2.0-7.7); Basophil# 0.04 X10^3/uL; Basophil% 0.8 % (0-1); Eosinophil# 0.11 X10^3/uL; Eosinophils% 2.2 % (0-5); Hematocrit 41.9 % (37-47); Hemoglobin 13.1 g/dL (12.0-15.0); Lymphocyte # 1.95 X10^3/ul (4.0); Lymphocyte % 38.4 % (19-41); Mean Corp Hgb Conc 31.3 g/dL (32-36); Mean Corpuscular Hgb 29.4 pg (27.0-32.0); Mean Corpuscular Volume 93.9 fL (81-99); Mean Platelet Vol. 9.8 fl (6.2-12.0); Monocyte# 0.38 X10^3/uL; Monocyte% 7.5 % (0-10); NRBC Flagged by Analyzer 0 % (0-5); Neutrophil # 2.58 X10^3/uL (2.7-7.7); Neutrophil % 50.7 % (47-70); Platelet Count 203 K/mm3 (150-450); RBC Distribution Width SD 44.2 fl (35.1-43.9); Red Blood Count 4.46 M/mm3 (4.2-5.4); White Blood Count 5.1 K/mm3 (4.4-11.0)
[2020-07-02 10:13] LABS: Anion Gap 6 (5-15); BUN 8 mg/dL (7-18); BUN/Creat Ratio 11.6 RATIO (10-20); Calcium,Total 9.2 mg/dL (8.5-10.1); Chloride 105 mmol/L (98-107); Creatinine, Serum 0.69 mg/dL (0.55-1.02); EST Glomerular Filtration Rate 92 mL/min (>60); Est Glom Filt Rate - Afr Amer 111 mL/min (>60); Glucose 107 mg/dL (74-106); Potassium 3.7 mmol/L (3.5-5.1); Sodium Level 139 mmol/L (136-145)
[2020-07-02 10:14] LABS: BNP,B-Type NATRIURETIC PEPTIDE 98.7 pg/mL (0-100)
--- NOTE | 2020-07-09 09:43 | ECHOTEE_ITS ---
Reason For Study: MR Medication BARBARA probe 6VT-D (SN [id number]) passed with minimal difficulty. No complications were noted. Cetacaine Topical [place] given X3 orally. Versed 2 mg given slow IVP. Fentanyl 50 mcg given slow IVP. Performed a rapid injection of agitated mix of 9 cc saline and 1cc air to assess for atrial septal defect. Left Ventricle Normal LV size. Left ventricular systolic function is normal. No regional wall motion abnormalities noted. Right Ventricle Normal RV size. Normal systolic function. Atria Normal atrial septum. The left atrium is moderately enlarged. The right atrium is moderately enlarged. Mitral Valve Posterior leaflet mitral valve prolapse. Moderately severe (3+) anteriorly directed mitral valve insufficiency. Tricuspid Valve Normal tricuspid valve. Aortic Valve Normal aortic valve. Trisinus/trileaflet aortic valve. Pulmonic Valve Normal pulmonic valve. Vessels Normal aortic root. The pulmonary artery is normal size. Pericardium No pericardial effusion. Interpretation Summary Normal LV size. Left ventricular systolic function is normal. The left atrium is moderately enlarged. Posterior leaflet mitral valve prolapse, especially of the middle scallop. Moderately severe (3+) anteriorly directed mitral valve insufficiency. Ordering Physician: Jorge Gutiérrez Referring Physician: James Renteria Performed By: Nate Langley RCS
== END 2020-07-09 12:30 | disposition home or self-care (01) ==
LOC: CVS 09:43
PROVIDERS: PCP Family Medicine; Referring Provider Internal Medicine Cardiovascular Disease; Visit Provider Internal Medicine Cardiovascular Disease
DX: R06.00 Dyspnea, unspecified (principal); I34.0 Nonrheumatic mitral (valve) insufficiency; I34.1 Nonrheumatic mitral (valve) prolapse; I10 Essential (primary) hypertension
CPT/HCPCS: 36415; 80048; 83880; 85025; 93312; 93320; 93325; J7040; A4216

== ENCOUNTER 2020-07-23 06:44 | Day surgery (SDC) | payer MEDICARE, SELFPAY ==
--- NOTE | 2020-07-13 08:37 | RAD_ITS ---
STUDY: X-RAY CHEST REASON FOR EXAM: Female, 64 years old. pre heart cath -- dyspnea, abnormal echo, mitral valve insuff TECHNIQUE: PA and lateral views of the chest. COMPARISON: 09/03/2018 FINDINGS: The lungs are clear and expanded. There is no demonstrated pleural abnormality. Normal size heart. Normal mediastinum and kati. Normal visualized pulmonary arteries. Normal visualized aortic arch and descending thoracic aorta. Normal visualized thoracic spine. Normal visualized ribs, clavicles, and shoulders. There is no demonstrated abnormality of the visualized soft tissue structures of the upper abdomen. RAD/Chest PA and Lateral IMPRESSION: Normal x-ray examination of the chest. Electronically Signed: Siva Anna MD at 17:32 EST Tel , Service support ,
[2020-07-20 07:07] VITALS: BMI 47.7
--- NOTE | 2020-07-23 08:22 | CON.PCM_ITS ---
Reason for Consult Date of Consultation: 07/23/20 Reason for Consultation: Evaluation of mitral valve History of Present Illness: The patient is a 64 year old F with a history of mitral valve prolapse and at least moderate mitral regurgitation. She has been doing well from the cardio vascular standpoint denying any chest pain or shortness of breath or paroxysmal nocturnal dyspnea. She says that the latter however appears to have worsened. She did have an echocardiogram which demonstrated 2+ mitral regurgitation and went on to have a transesophageal echocardiogram which demonstrated evidence of posterior mitral valve prolapse as well as 3+ eccentric mitral regurgitation. She remains on her diuretic LEONOR inhibitor and beta-florencio. She is here for further evaluation of her coronary anatomy. [] Past Medical History Allergies/Adverse Reactions: Allergies No Known Allergies Allergy (Verified 04/28/20 13:44) Home Medications: Ambulatory Orders Medication Instructions Recorded Metoprolol Tartrate [Lopressor 50 mg PO DAILY 03/05/16 (Beta Florencio)] Pantoprazole Sodium [Protonix] 40 mg PO DAILY 03/05/16 Sertraline HCl [Zoloft] 50 mg PO DAILY 03/05/16 Venlafaxine XR [Effexor Xr] 150 mg PO DAILY 03/05/16 Albuterol Inhaler [Ventolin Hfa] 1 - 2 puff INHALATION Q4H PRN PRN 04/15/17 #1 inhaler ergocalciferol (vitamin D2) 1,250 50,000 unit PO QWEEK cap 08/05/17 mcg (50,000 unit) capsule mesalamine 800 mg tablet,delayed 800 mg PO TID tab 09/03/18 release amoxicillin 500 mg tablet 2,000 mg PO .COMPLEX #8 tab 11/29/18 budesonide-formoterol HFA 160 2 inh INHALATION DIRECTED PRN g 06/28/19 mcg-4.5 mcg/actuation aerosol inhaler fluticasone 250 mcg-salmeterol 50 1 inh INHALATION BID 06/28/19 mcg/dose blistr powdr for inhalation lisinopril 10 mg tablet 10 mg PO DAILY #90 tab 06/28/19 azathioprine 50 mg tablet 50 mg PO TID tab 01/24/20 budesonide 3 mg 1 ea PO DAILY 01/24/20 capsule,delayed,extended release furosemide 40 mg tablet 40 mg PO QDAY #90 tab 06/25/20 Handicap Placard See Rx Instructions .ROUTE 11/09/20 .MEDSUPPLY #1 ea Aspirin E.C. [Ecotrin] 81 mg PO DAILY@0800 07/20/20 Past Medical History (Chronic Problems): Chronic Problems (Last Reviewed 01/24/20 @ 13:[address] Jorge Gutiérrez MD) Dyspnea (Chronic) Non-rheumatic mitral regurgitation (Chronic) Nonrheumatic mitral valve prolapse (Chronic) Essential (primary) hypertension (Chronic) Surgical History: noncontributory, - Smoking Status: Never smoker Tobacco Use: Non-smoker Alcohol: None Drugs: None Review of Systems - Review of Systems General: Denies: Fever, Night Sweats, Fatigue HEENT: Denies: Vision Change Cardiovascular: Reports: Shortness of Breath, Shortness of Breath at Rest, Shortness of Breath with Exertion. Denies: Chest Discomfort, Orthopnea, PND, Peripheral Edema, Palpitations, Lightheadedness, Dizziness, Near Syncope, Syncope Respiratory: Denies: Cough, Sputum Production, Hemoptysis Gastrointestinal: Denies: Hematemesis, Hematochezia, Melena Genitourinary: Denies: Dysuria, Hematuria Skin: Denies: Rash Neurological: Denies: Dizziness Psychiatric: Denies: Anxiety Subjectve: Pleasant lady in no distress Objective: Weight: 261 lb Body Mass Index (BMI) 47.7 General: Awake, Alert, Oriented x 3 HEENT: PERRL, EOMI, Sclera Non Icteric Neck: Supple, Good ROM, No Lymph Node Enlargement Lungs: Clear to auscultation Cardiovascular: Regular Rhythm, Normal S1, Normal S2, No Murmurs, No Rubs, No Gallops Murmur Murmur: Grade 3/6, Holosystolic, [employer], Axilla Vascular: No Carotid Bruits, Normal Femoral Pulses, Normal Radial Pulses, Normal Dorsalis Pedal Pulse, Normal Posterior Tibial Pulses Abdomen: Bowel Sounds Present, Soft, Non Tender, No HSM, No Organomegaly Extremities: No Cyanosis, No Clubbing, No edema Musculoskeletal: No Erythema Skin: No Rashes Lymphatic: No Lymph Node Enlargement Neurological: No Focal Motor or Sensory Deficit Psych/Mental Status: Appropriate Rhythm: EKG: ECHO: Stress Test: Cardiac Cath: PCI: CT Surgery: Holter monitor: EPS: PPM: CXR: Chest CT Scan: Assessment/Plan 1. Mitral valve disease * Patient presents with mitral valve disease. Trans esophageal echocardiogram confirmed the above. At this time her coronary anatomy has been investigated to make sure that there are no coronary lesions. Depending on the findings further recommendations regarding her mitral valve will be made. * * Thank you for allowing me to participate in the care of your patient. Please don't hesitate to call if any issues arise.
--- NOTE | 2020-07-23 09:21 | CL.D_ITS ---
Patient Name: STACIE NICHOLS Study Date: 07/23/2020 Performing: Jorge Gutiérrez MD Ht: 61.81 inches 157 cm : 1955 Wt: 260.15 lbs 118 kg Age: 64 Gender: female BSA: 2.13 PROCEDURE(S) PERFORMED EE63-DEG/COR/LV CLINICAL PROFILE AND INDICATIONS Indications: Other Heart Failure: None Stress/Imaging Stress/Image Study Performed: No CAD Presentations: No Sxs, no angina. CONCLUSIONS Normal coronary arteries Normal LV size, wall motion,and systolic function Mitral Valve Insufficiency Moderate Mitral Valve Prolapse Moderate RECOMMENDATIONS MV surgery DESCRIPTION OF PROCEDURE The patient arrived to the procedure lab. The risks and benefits of the procedure as well as a full d escription of our services here and current unavailability of surgical backup were fully explained to the patient and/or their significant other prior to the catheterization. The Timeout was completed, verifying the correct patient and procedure. The patient's procedural site was prepped and draped in the usual fashion. Local anesthetic was given subcutaneously to right radial region with Lidocaine 2% . Using a modified Seldinger technique, arterial access was obtained via the right radial artery, a 6 Fr sheath was inserted. Left Coronary Artery selective angiography was performed in multiple views u sing a 5 Fr. 4.0 [place] catheter. Right Coronary Artery selective angiography was then performed in mu ltiple views using a 5 Fr. 4.0 [place] catheter. Left Ventriculography was performed in GONZALEZ projection using a 5 Fr. Pigtail catheter. LV to AO pullback pressures were then recorded.The arterial sheath was pulled and a TR Band was applied for hemostasis CORONARY ANGIOGRAPHY DOMINANCE: Left Dominant LEFT HEART ASSESSMENT Left Ventricular Ejection Fraction: by LV Gram 65 % Normal Left Ventricular systolic function Normal Left Ventricular systolic function LEFT MAIN: Angiographically normal LEFT ANTERIOR DESCENDING ARTERY: Angiographically normal CIRCUMFLEX ARTERY: Angiographically normal RIGHT CORONARY ARTERY: Angiographically normal VALVE FINDINGS: Mitral Valve Insufficiency - Grade 3 COMPLICATIONS No Complications PROCEDURE MEDICATIONS Fentanyl 50 mcg IV Versed 1 mg IV Versed 1 mg IV Oxygen: 2 L/min via nasal cannula Heparin diluted in 23cc Heparinized saline. Patient given 10cc IA of this solution. 07/23/2020 08:30 :20 Verapamil 2.5mg, Ntg 100mcgs, 2000 units of Heparin diluted in 23cc Heparinized saline. Patient give n 10cc IA of this solution. 07/23/2020 08:30:20 SUMMARY OF HEMODYNAMIC DATA Time AIR REST ECG 07:13:17 AO 120/86 (103) SA 08:33:26 LV 113/1, 7 08:39:14 LV 113/0, 5 08:39:21 LV 111/4, 10 08:40:11 LV 113/5, 11 08:40:17 LVp 112/4, 11 08:40:23 AOp 114/66 (89) 08:40:28 Signed By Jorge Gutiérrez MD On 07/23/2020 09:20:26 Jorge Gutiérrez MD
== END 2020-07-23 10:15 | disposition home or self-care (01) ==
LOC: CLSP 06:45
PROVIDERS: PCP Family Medicine; Referring Provider Internal Medicine Cardiovascular Disease; Visit Provider Internal Medicine Cardiovascular Disease
DX: I34.0 Nonrheumatic mitral (valve) insufficiency (principal); I34.1 Nonrheumatic mitral (valve) prolapse; I10 Essential (primary) hypertension; Z79.82 Long term (current) use of aspirin; Z79.51 Long term (current) use of inhaled steroids; Z79.899 Other long term (current) drug therapy
CPT/HCPCS: 71046; 93458; 99152; J7040; C1769; C1894; Q9967

== ENCOUNTER → 2020-07-31 17:30 | Outpatient (CLI) | payer MEDICARE, SELFPAY ==
[2020-07-20 07:07] VITALS: BMI 47.7
== END ==
PROVIDERS: PCP Family Medicine; Referring Provider Family Medicine; Visit Provider Family Medicine
DX: Z20.828 Contact with and (suspected) exposure to other viral communicable diseases (principal)
CPT/HCPCS: 87635; C9803; U0003

== ENCOUNTER → 2020-09-14 | Outpatient (CLI) | payer BC, SELFPAY ==
[2020-07-20 07:07] VITALS: BMI 47.7
== END | disposition home or self-care (01) ==
LOC: LABSPEC 10:08
PROVIDERS: PCP Family Medicine; Referring Provider Family Medicine; Visit Provider Family Medicine
DX: Z03.818 Encounter for observation for suspected exposure to other biological agents ruled out (principal)
CPT/HCPCS: 87635; C9803; U0005; U0003

== ENCOUNTER → 2020-10-30 09:50 | Outpatient (CLI) | payer MEDICARE, SELFPAY ==
[2020-07-20 07:07] VITALS: BMI 47.7
--- NOTE | 2020-10-30 10:16 | RAD_ITS ---
STUDY: X-RAY CHEST REASON FOR EXAM: Female, 65 years old. Cough and shortness of breath TECHNIQUE: PA and lateral views of the chest. COMPARISON: 09/03/2018 FINDINGS: There are interstitial changes of the lungs. There is no demonstrated pleural abnormality. There has been a sternotomy and valve replacement since the previous study. Normal mediastinum and akti. Normal visualized pulmonary arteries. Normal visualized aortic arch and descending thoracic aorta. There are diffuse degenerative changes of the visualized thoracic spine. There is degenerative osteoarthritis of the bilateral shoulders. There is no demonstrated abnormality of the visualized soft tissue structures of the upper abdomen. RAD/Chest PA and Lateral IMPRESSION: Interstitial changes, no superimposed acute pulmonary process Electronically Signed: Ivan Encinas MD at 10:56 EST , Service support ,
[2020-10-30 12:15] LABS: Absolute Lymphocyte Count 1.75 X10^3/uL (0.83-4.51); Absolute Neutrophil Count 2.7 X10^3/uL (2.0-7.7); Basophil# 0.06 X10^3/uL; Eosinophil# 0.98 X10^3/uL; Eosinophils% 16.3 % (0-5); Hematocrit 40.6 % (37-47); Hemoglobin 12.5 g/dL (12.0-15.0); Lymphocyte # 1.75 X10^3/ul (4.0); Lymphocyte % 29.1 % (19-41); Mean Corp Hgb Conc 30.8 g/dL (32-36); Mean Corpuscular Hgb 29.3 pg (27.0-32.0); Mean Corpuscular Volume 95.1 fL (81-99); Mean Platelet Vol. 10.2 fl (6.2-12.0); Monocyte# 0.46 X10^3/uL; Monocyte% 7.7 % (0-10); NRBC Flagged by Analyzer 0 % (0-5); Neutrophil # 2.74 X10^3/uL (2.7-7.7); Neutrophil % 45.6 % (47-70); Platelet Count 253 K/mm3 (150-450); RBC Distribution Width CV 12.7 % (11.6-14.6); RBC Distribution Width SD 44.2 fl (35.1-43.9); Red Blood Count 4.27 M/mm3 (4.2-5.4)
[2020-10-30 12:34] LABS: BNP,B-Type NATRIURETIC PEPTIDE 122.2 pg/mL (0-100)
[2020-10-30 12:59] LABS: ALB/GLOB Ratio 1.1 RATIO (0.9-2.4); AST(SGOT) 26 U/L (15-37); Alanine Aminotransfer ALT/SGPT 29 U/L (13-56); Albumin, Serum 3.3 g/dL (3.2-5.0); Alkaline Phosphatase 123 U/L (45-117); Anion Gap 8 (5-15); BUN 8 mg/dL (7-18); BUN/Creat Ratio 12.6 RATIO (10-20); Calcium,Total 8.9 mg/dL (8.5-10.1); Chloride 106 mmol/L (98-107); Creatinine, Serum 0.64 mg/dL (0.55-1.02); EST Glomerular Filtration Rate 100 mL/min (>60); Est Glom Filt Rate - Afr Amer 121 mL/min (>60); Globulin 3.1 g/dL (2.2-4.2); Glucose 92 mg/dL (74-106); Potassium 3.5 mmol/L (3.5-5.1); Protein, Total 6.4 g/dL (6.4-8.2); Sodium Level 141 mmol/L (136-145)
== END ==
PROVIDERS: PCP Family Medicine; Referring Provider Family Medicine; Visit Provider Family Medicine
DX: I34.0 Nonrheumatic mitral (valve) insufficiency (principal); I50.9 Heart failure, unspecified; J90 Pleural effusion, not elsewhere classified; R05 Cough; R06.00 Dyspnea, unspecified
CPT/HCPCS: 36415; 71046; 80053; 83880; 85025

== ENCOUNTER → 2020-11-06 11:40 | Outpatient (CLI) | payer MEDICARE, SELFPAY ==
[2020-07-20 07:07] VITALS: BMI 47.7
[2020-11-06 15:30] LABS: Absolute Lymphocyte Count 2.05 X10^3/uL (0.83-4.51); Absolute Neutrophil Count 2.9 X10^3/uL (2.0-7.7); Basophil# 0.06 X10^3/uL; Eosinophil# 0.48 X10^3/uL; Eosinophils% 7.9 % (0-5); Hematocrit 42.8 % (37-47); Hemoglobin 13.7 g/dL (12.0-15.0); Lymphocyte # 2.05 X10^3/ul (4.0); Lymphocyte % 33.6 % (19-41); Mean Corpuscular Hgb 29.3 pg (27.0-32.0); Mean Corpuscular Volume 91.5 fL (81-99); Mean Platelet Vol. 10.6 fl (6.2-12.0); Monocyte# 0.64 X10^3/uL; Monocyte% 10.5 % (0-10); NRBC Flagged by Analyzer 0 % (0-5); Neutrophil # 2.87 X10^3/uL (2.7-7.7); Neutrophil % 46.8 % (47-70); Platelet Count 197 K/mm3 (150-450); RBC Distribution Width CV 12.7 % (11.6-14.6); RBC Distribution Width SD 41.4 fl (35.1-43.9); Red Blood Count 4.68 M/mm3 (4.2-5.4); White Blood Count 6.1 K/mm3 (4.4-11.0)
[2020-11-06 15:50] LABS: BNP,B-Type NATRIURETIC PEPTIDE 78.5 pg/mL (0-100)
[2020-11-06 15:59] LABS: ALB/GLOB Ratio 1.2 RATIO (0.9-2.4); AST(SGOT) 27 U/L (15-37); Alanine Aminotransfer ALT/SGPT 28 U/L (13-56); Albumin, Serum 3.8 g/dL (3.2-5.0); Alkaline Phosphatase 108 U/L (45-117); Anion Gap 8 (5-15); BUN 14 mg/dL (7-18); BUN/Creat Ratio 18.1 RATIO (10-20); Calcium,Total 9.1 mg/dL (8.5-10.1); Chloride 101 mmol/L (98-107); Cholesterol 225 mg/dL (200); Creatinine, Serum 0.78 mg/dL (0.55-1.02); EST Glomerular Filtration Rate 80 mL/min (>60); Est Glom Filt Rate - Afr Amer 96 mL/min (>60); Globulin 3.2 g/dL (2.2-4.2); Glucose 103 mg/dL (74-106); High Density Lipoprotein 64 mg/dL; Potassium 2.6 mmol/L (3.5-5.1); Sodium Level 138 mmol/L (136-145); Triglycerides 197 mg/dL; Very Low Density Lipoprotein 39 mg/dL (5-40)
== END ==
PROVIDERS: Internal Medicine Cardiovascular Disease; PCP Family Medicine; Referring Provider Family Medicine; Visit Provider Family Medicine
DX: I11.0 Hypertensive heart disease with heart failure (principal); I50.9 Heart failure, unspecified; E87.6 Hypokalemia; K76.0 Fatty (change of) liver, not elsewhere classified; E78.5 Hyperlipidemia, unspecified; I34.0 Nonrheumatic mitral (valve) insufficiency; I34.1 Nonrheumatic mitral (valve) prolapse; R06.00 Dyspnea, unspecified; Z98.890 Other specified postprocedural states
CPT/HCPCS: 36415; 80053; 80061; 83880; 85025

== ENCOUNTER → 2020-11-09 12:09 | Outpatient (CLI) | payer MEDICARE, SELFPAY ==
[2020-07-20 07:07] VITALS: BMI 47.7
[2020-11-09 10:47] VITALS: BMI 45.5
--- NOTE | 2020-11-09 12:13 | ECHOCS_ITS ---
Reason For Study: MVR Procedure This was a 2D Doppler, Color Flow transthoracic echocardiogram. Contrast injection was performed. Exam performed in department. Left Ventricle Normal left ventricle. Mild concentric left ventricular hypertrophy. Left ventricular systolic function is normal. The estimated ejection fraction is 60 %. Stage 1 diastolic dysfunction. No regional wall motion abnormalities noted. Right Ventricle Normal RV size. Normal systolic function. Atria Normal left atrium. Normal right atrium. Mitral Valve Peak transmitral valve gradient 6.9 mmHg. Mean transmitral valve gradient 3.0 mmHg. Status post mitral valve repair with annuloplasty ring. Tricuspid Valve Normal tricuspid valve. Mild (1+) tricuspid valve insufficiency. Pulmonary artery systolic pressure is 28 mmHg. Aortic Valve Trisinus/trileaflet aortic valve. Pulmonic Valve Normal pulmonic valve. Great Vessels Normal aortic root. The pulmonary artery is normal size. Normal inferior vena cava. Pericardium/Pleural Small pericardial effusion. There are no echocardiographic indications of cardiac tamponade. Medication Diluted definity 3ml given slow IV push to enhance endocardial definition. MMode/2D Measurements & Calculations LVIDd: 4.7 cm IVSd: 1.3 cm Ao root diam: 3.1 cm LVIDs: 3.3 cm LVPWd: 1.4 cm RVDd: 3.6 cm FS: 28.9 % LAV(MOD-bp): 49.8 ml LA A4 area: 18.6 cm2 LA dimension(2D): 4.2 cm LAV(MOD-bp) Indexed: 23.9 ml/m2 LAV(MOD-sp2): 51.6 ml LAV(MOD-sp4): 45.2 ml RA A4 area: 13.1 cm2 Time Measurements MV dec time: 0.59 sec Doppler Measurements & Calculations MV E max mohan: 84.7 cm/sec Lat Peak E' Mohan: 6.6 cm/sec Med Peak E' Mohan: 4.5 cm/sec MV A max mohan: 116.5 cm/sec E/E' lat: 12.7 E/E' med: 18.7 MV E/A: 0.73 MV V2 max: 131.0 cm/sec MV P1/2t max mohan: 90.1 cm/sec Ao V2 max: 127.3 cm/sec MV max P.9 mmHg MV P1/2t: 173.9 msec Ao max P.5 mmHg MV V2 mean: 83.9 cm/sec MV dec slope: 151.6 cm/sec2 Ao V2 mean: 91.5 cm/sec MV mean P.0 mmHg Ao mean P.6 mmHg MV V2 VTI: 35.5 cm MVA(P1/2t): 1.3 cm2 Ao V2 VTI: 21.9 cm LV V1 max: 112.5 cm/sec PA V2 max: 78.9 cm/sec TR max mohan: 240.1 cm/sec LV V1 max P.1 mmHg TR max P.1 mmHg Interpretation Summary Status post mitral valve repair with annuloplasty ring. Normal left ventricle. Mild concentric left ventricular hypertrophy. Left ventricular systolic function is normal. The estimated ejection fraction is 60 %. Stage 1 diastolic dysfunction. Pulmonary artery systolic pressure is 28 mmHg. Small pericardial effusion. Mean transmitral valve gradient 3.0 mmHg. Ordering Physician: Jorge Gutiérrez Referring Physician: James Renteria Performed By: Anay Daniel, JENNIFER, RVT
== END ==
PROVIDERS: PCP Family Medicine; Referring Provider Internal Medicine Cardiovascular Disease; Visit Provider Internal Medicine Cardiovascular Disease
DX: R06.00 Dyspnea, unspecified (principal); Z98.890 Other specified postprocedural states; I34.0 Nonrheumatic mitral (valve) insufficiency; I34.1 Nonrheumatic mitral (valve) prolapse; I10 Essential (primary) hypertension
CPT/HCPCS: 93306; Q9957; A4216; C8929

== ENCOUNTER → 2020-11-13 07:35 | Outpatient (CLI) | payer MEDICARE, SELFPAY ==
[2020-11-09 10:47] VITALS: BMI 45.5
--- NOTE | 2020-11-13 07:47 | PCM.CR.ITP ---
Diagnosis - General Information Admitting Diagnosis: S/P Heart Valve Repair Personal Learning Style:: Audio/Visual, Written Barriers to Learning: Vision Impairment - Requires reading glasses Gave educational material for:: Treating Heart Disease, Emotions & Heart Disease, Stress Management & Relaxation, Sleep Disorders & Heart Disease, How The Heart Works, What it means to have Heart Disease, How Coronary Artery Disease is Diagnosed, Heart Procedures, What Heart Medications Do, Risk Factors & Modifications, Living an Active Life, Nutrition - Education/Goals Individual Counseling: Initial Assessment: Abnormal Cholesterol Levels, High Blood Pressure, Overweight/Obesity Cardiac Rehabilitation Goals: 1. Maintain the individual as the primary focus of care. 2. To improve the patient's quality of life. 3. Identification of cardiac risk factors and provide cardiac risk factor management. 4. Enhance the psychosocial status of the patient. 5. Reconditioning enough to allow the patient to resume customary activities. 6. Control symptoms of cardiac disease Personal Goals: Initial Assessment: Improve management of stress and emotions, Improve energy level, Improve knowledge of cardiac disease, Improve muscle strength and endurance, Improve diet and eating habits (eat healthier), Control risk factors (learn risk factor modification) Scale for measuring improvement of personal goals: Enter appropriate number in Comments. 2 = Unchanged. 3 = Slightly Better. 4 = Moderate Improvement. 5 = Met my Goal - Diagnosis & Disease Process Outcomes/Goals: Pt IDs own risk factors & lifestyle modifications by Session 10, Verbalizes symptoms of angina & response by session 3., Pt independently manages Plan/Interventions: Assist Pt to ID & engage in lifestyle modification to reduce CVD risk, Instruct on individual risk factors, Review symptoms of angina & emergency actions, Review secondary diagnosis & identify educational needs. - Safety Referral to Physical Therapy: No Referral to [facility] Case Management: No Fall Risk Assessed:: Yes Assistive Devices:: None Exercise - Initial Assessment - Visit Date of Eval: 11/13/20 Session #:: 0 - Pre-cardaic rehab evaluation Mets: Pre-: >5 METS for 30 minutes by discharge - Physician Prescribed Exercise Modalities: Treadmill, Airdyne, NuStep Frequency: 3x/week for 12 weeks [36 sessions] Intensity: 60-80% of age predicted maximum heart rate reserve Current METSs:: 3.0 Target Heart Rate:: 100-132 Resting Blood Pressure: 128/78 EKG Type: Sinus Rhythm with frequent ectopic ventricular beats - Outcomes & Goals Goals:: Verbalizes understanding of THR, RPE & goal METS by session 6, Documents in home exercise log/reports 30 min aerobic 5 day/wk by DC, Demonstrates accurate pulse taking by DC - Intervention & Plan Exercise Program Goals: Instruct on personal THR & RPE, Instruct on MET level & personal MET goal, Show patient to take own pulse /validate performance until accurate, Instruct on home exercise - Physical Activity Home Exercise Physical Activity - Home Exercise: Safe Exercise, Warm-up, Self-monitoring, Cool-Down, Home Exercise > 30 min Daily, Sitting Time <3 hours/daily - Outcomes & Goals Outcomes/Goals: Demonstrates correct Warm-up/exercise Cool-Down (S3) if = 2.5 METs, Verbalizes symptoms of exercise intolerance by Session 3 (S3), Demonstrate safe equipment use (S3) & follows exercise prescrition (6) - Intervention & Plan Plan/Intervention: Instruct warm-up & cool-down if exercising at > 2 METs, Instruct on symptoms of exercise intolerance & actions to take, Instruct & monitor on saf, Assess intial functional capacity & safety risk Nutrition - Initial Assessment - Program Goals Nutrition Program Goals: LDL <100 optimal. 100 - 129 Near optimal. 130 - 159 Borderline High. 160 - 189 High. Total Cholesterol <200 desirable. 200 - 239 Borderline High. >/= 240 High. HDL < 40 Low >/=60 High. Triglycerides <150 desirable. <199 optimal. VlDL 5 - 40. HgbA1C <7%. BMI <25 Patient has diagnosis of Hyperlipidemia (ICD E78)?: Yes - Visit Date of Assessment:: 11/13/20 Session #:: 0 - Pre-cardiac rehab evaluation - Cholesterol/Lipids Triglycerides (mg/dL): 197 - 11/06/2020 Total Cholesterol (mg/dL): 150 LDL Cholesterol (mg/dL): 122 HDL Cholesterol (mg/dL): 64 Determine presence & major risk factors that modify LDL goal: Hypertension or hypertensive medication, Age men > 45 years; women >/= 55 years Outcomes/Goals: Pt IDs own risk factors & lifestyle modifications by Session 10, Verbalizes symptoms of angina & response by session 3., Pt independently manages Intervention/Plan: Instruct on personal lipid levels & lipid goals/NCEP guidelines, Instruct on cholesterol Referral to dietitian:: Yes - Medical Nutrition Therapy - Diabetes (Other Core Measures) Diabetes Type: Not Applicable - Weight Mgt (Other Care) Not Applicable: No Height: 5 ft 2 in Weight:: 249 lb BMI: 45.5 Diagnosis Overweight/Obesity BMI> 30% ICD-10 E66: Yes Diagnosis High BMI/Morbid Obesity BMI> 35% ICD-10 Z68: Yes Outcomes/Goals: Pt sets, maintains & shows weight loss goal & trend during rehab Intervention/Plan: Instruct on ideal BMI & set weight loss goal w/patient, Assist pt to ID & incorporate diet changes for weight loss by S9, Refer to Structured Weight Loss program as appropriate, Encourage goal of using 250-300dcal per session for weight loss - Healthy Eating Habits Will attend diet classes:: Yes Outcomes/Goals:: Consume diet rich in vegs,fruits,whole grain/high fiber,fish,lean meat, Limit sat/trans fats,cholesterol & added salts & sugars Intervention/Plan:: Assess current eating habits Medical - Initial Assessment - Visit Date of Eval: 11/13/20 Session #:: 0 - Pre-cardiac rehab evaluation - Medication Compliance Preventative Medication(s):: Aspirin, Beta haleigh H/O mental health issues: depression, anxiety, or addiction?: Yes Doesn?t believe in the benefits of treatment?: No Believes medications are unnecessary or harmful?: No Has a concern about medication side effects?: No Expresses concern over the cost of medications?: No Outcomes/Goals: Verbalizes medications,desired effect & common side effects @ DC, Pt self-reports following medication regimen, Keeps card in wallet w/medications listed by DC Interventions/plans: Instruct on medication effects & side effects, Review medication list w/patient every two weeks, Instruct importance of taking meds as ordered & assist problem solving - Tobacco Use Tobacco Use: Non-smoker - Hypertension Hypertension Diagnosis:: Hypertension ICD-10 I10 Resting Blood Pressure:: 128/78 [employer] [employer] Hypertension Guidelines: [place] [employer] Hypertension Guidelines. Normal BP Less than 120/80. Elevated BP 120/80. Hypertension Stage 1: BP 130-139/80-89. Hypertesnion Stage 2: BP 140 or higher/90 or higher. Hypertension Crisis: BP higher than 180/120 Outcomes/Goals: Able to verbalize/achieve optimal blood pressure <130/80, Incorporates diet changes & exercise for blood pressure control by DC Interventions/plan: Instruct on optimal blood pressure, hypertension & medications, Instruct on effects of sodium, alcohol, stress, exercise &hypertension - Tobacco Cessation Referral Smoking Cessation Referral:: No Individual Education/Counseling:: No Education Schedule Given:: Yes Psychosocial - Initial Assess - VIsit Date of Adolfo: 11/13/20 Session #:: 0 - Pre-cardiac rehab evaluation Not Applicable: No History of Emotional Disorders: Depression - Target Goals Target Goals: Assess presence or absence of depression. Using a valid screening tool, maximizes coping skills. Positive support system - Psychosocial Test Tool Used:: Bren Moses QOL Cardiac, PHQ-9 Questionnaire phq-9 Severity: Severity. 1-4 Minimal Depression. 5-9 Mild Depression. 10-14 Moderate Depression. 15-19 Moderately Sever Depression. 20-27 Severe Depression. Rule: See PHQ-9 Score: 14 - PHQ-9 score indicated Moderate Depression - Referral to Behavioral Health PS - Interventions: Yes Referral to Physician if PHQ-9 if score is 5-9: - Refer to PCP for possible intervention with depression., Yes Attend Stress Management Classes, No Referral to Behavioral Health if PHQ-9 score >9:, No Referral to [facility] - Outcomes/Goals: See list Psychosocial Outcomes/Goals:: ID's personal stressors & 2 strategies to manage stress by discharge - Intervention/Plan: See List Interventions/Plan:: Assess stressors,coping strategies & signs of derpression on admission, Instruct/assist pt to develop coping & personal stress Mgt strategies, Instruct patient to recognize signs & symptoms of depression, Instruct patient to recog Patient Health Questionnaire Initial Assessment 1. Little interest or pleasure in doing things: More than half the days 2. Feeling down, depressed, or hopeless: More than half the days 3. Trouble falling or staying asleep, or sleeping too much: Nearly every day 4. Feeling tired or having little energy: Nearly every day 5. Poor appetite or overeating: Several days 6. Feeling bad about yourself -- or that you are a failure or have let yourself or your family down: More than half the days 7. Trouble concentrating on things, such as reading the newspaper or watching television: Several days 8. Moving or speaking so slowly that other people could have noticed. Or the opposite - being so fidgety or restless that you have been moving around a lot more than usual: Not at all 9. Thoughts that you would be better off , or of hurting yourself in some way: Not at all How difficult have these problems made it for you to do your work, take care of things at home, or get along with other people?: Somewhat difficult Total Score: 14 BHARATI-Q SV Test - Statements CAD is a disease of the arteries in the heart: False Examples of risk factors for heart disease: True Angina is chest pain or discomfort: True The benefits of resistance training include: True Eating more meat and dairy products: False Anti-platelet medications such as aspirin are important: True The only effective way to manage stress: False An exercise warm-up slowly increases heart rate: True Prepared, processed foods usually have high sodium: True Depression is common after a heart attack: True The statin medications lower cholesterol: True To control blood pressure, lower the amount of sodium: I Don't Know If someone gets chest discomfort during walking: False Transfats are partially hydrogenated vegetable oils: True Sleep apnea that is not treated increases the risk: False To control cholesterol, one should become a vegetarian: False Someone knows if he/she is exercising at the right level: I Don't Know Diabetes cannot be prevented with exercise & health eating: False Stress is a large risk for heart attack: True A diet that can help lower blood pressure is rich in: True - Total Score Total Correct Responses: 18 Self-Efficacy Initial Assessment We would like to know how confident you are in doing certain activities. Please select your confidence level for:: Select your confidence level for the following using the scale 1-10 where 1 is not at all confident and 10 is totally confident. Your score is the average of all 6 responses. Fatigue: How confident are you that you can keep the fatigue caused by your disease from interfering with the things you want to do? Select Number: 6 Physical Discomfort or Pain: How confident are you that you can keep the physical discomfort or pain of your disease from interfering with the things you want to do? Select Number: 7 Emotional Distress: How confident are you that you can keep the emotional distress caused by your disease from interfering with the things you want to do? Select Number: 7 Other Symptoms or Health Problems: How confident are you that you can keep other symptoms or health problems from interfering with the things you want to do? Select Number: 7 Different Tasks and Activities: How confident are you that you can do the different tasks and activities needed to manage your health condition so as to reduce your need to see a doctor? Select Number: 8 Medication: How confident are you that you can do things other than just taking medication to reduce how much your illness affects your everyday life? Select Number: 7 Total Score:: 7 Nutrition Survey - Nutrition Survey Instructions Scoring Instructions: Scoring is as follows: Yes = 1 points. No = 0 point. Patient score that is >/=12 is considered to be at potential nutritional risk and could benefit from a referral to a registered dietitian. - Nutrition Survey Initial Have you lost >10 lbs over the past 2 months without trying?: Yes Are you following a special diet at home for diabetes, low fat, or low salt?: Yes Are you interested in meeting with a dietitian for help understanding your diet?: Yes Do you eat less than 3 meals a day?: Yes Do you eat fatty meats (taylor, sausage, ribs, etc), fried foods, desserts, large amounts of salad dressings, margarine, butter, or cheese most days?: Yes Do you have food allergies? [Enter types in comment field]: No Do you eat in restaurants more than 3 times a week?: No Do you season food with salt, seasoning salt, or garlic salt?: Yes Do you used canned, boxed, frozen meals, or soups, seasoning packets?: Yes - Patient refer to Nutritional Services for Medical Nutrition Therapy and the [employer] [facility] weight loss management programs. Total Score:: 7
--- NOTE | 2020-11-13 07:48 | CR.HP_ITS ---
CR - History & Physical - General Arrival date:: 11/13/20 Arrival time:: 07:51 Date of Referral:: 11/09/20 Date of CR Evaluation:: 11/13/20 Referring Physician: Dr. Jorge Gutiérrez Primary Diagnosis: Heart Valve Repair - History of Present Cardiac Event Onset Date: Enter Onset Date of cardiac illnesses in Comment field below Heart valve replacement or repair:: Yes - 11/05/2020 @ the [facility] [place] Type of Symptoms:: Long hsitory of mitral valve prolapse and mitral regurgitation. Patient underwent a heart cath which demonstrated no obstructive coronary disease but significant mitral regurgitation. Patient was the referred to [facility] for further evaluation and mitral valve repair. SHe has a preserved LVEF of 55-59% per echocardiogram. - Medications Home Medications: Ambulatory Orders Medication Instructions Recorded Metoprolol Tartrate [Lopressor 50 mg PO DAILY 03/05/16 (Beta Florencio)] Pantoprazole Sodium [Protonix] 40 mg PO DAILY 03/05/16 Venlafaxine XR [Effexor Xr] 150 mg PO DAILY 03/05/16 Albuterol Inhaler [Ventolin Hfa] 1 - 2 puff INHALATION Q4H PRN PRN 04/15/17 #1 inhaler ergocalciferol (vitamin D2) 1,250 50,000 unit PO QWEEK cap 08/05/17 mcg (50,000 unit) capsule budesonide-formoterol HFA 160 2 inh INHALATION DIRECTED PRN g 06/28/19 mcg-4.5 mcg/actuation aerosol inhaler fluticasone 250 mcg-salmeterol 50 1 inh INHALATION BID 06/28/19 mcg/dose blistr powdr for inhalation Handicap Placard See Rx Instructions .ROUTE 07/02/20 .MEDSUPPLY #1 ea Aspirin E.C. [Ecotrin] 81 mg PO DAILY@0800 07/20/20 amoxicillin 500 mg tablet 2,000 mg PO .COMPLEX #8 tab 08/28/20 vedolizumab 300 mg intravenous 300 mg .ROUTE ea 11/01/20 solution furosemide 40 mg tablet 40 mg PO DAILY #60 tablet 11/09/20 - Allergies Allergies/Adverse Reactions: Allergies lisinopril Adverse Reaction (Verified 11/09/20 10:47) cough - Sleep Disorder Evaluation Hx of Sleep Apnea: Yes Do you snore loudly (louder than talking or can be heard through closed doors)?: Yes - has been tested and has a CPAP Do you often feel tired/ fatigued/ sleepy during daytime?: No Has anyone observed you stop breathing during sleep?: Yes History of Hypertension (for STOP score): Yes STOP Results: Positive Advanced Directives - Advanced Directives Power of Waist Cutter: Yes Living Will: Yes Advance Directives Information Provided: No - Does not believe they are on file here at [facility] Advance Directives on File: No DNR Order?:: No - MOLST See MOLST form: No Past Medical History - Covid-19 Screening Fever: No Unexplained muscle aches: No Current respiratory symptoms: No Upper respiratory infections symptoms: No Gastro-intestinal symptoms: No Qbe-Gcax-Kvixxr symptoms: No Has tested positive for COVID-19 in last 30 days: No Date of testin10/21/20 - Had first vaccine gets second one next week (Moderna). Had contact w/person w/symptoms or Covid-19 (+) last 14 days: No Has High Risk Exposures ID'd by Health dept/Inf Control team: No 65 years or older:: No Lives in Assisted Living facility:: No Has a chronic lung disease or moderate to severe asthma:: No Has a serious heart condition:: Yes Immunocompromised:: No Severely obese (Body Mass Index of 40 or higher):: Yes Diabetic:: No Has chronic kidney disease undergoing dialysis:: No Has liver disease:: No - Past Medical Illness Medical History: Past Medical History (Last Updated 11/09/20 @ 16:55 by Anastacia White) Pericardial effusion (Acute) Onset Date: 11/09/20 I31.3 small effusion per echo 11/09/20 Nonrheumatic mitral (valve) insufficiency (Chronic) I34.0 Nonrheumatic mitral valve prolapse (Chronic) I34.1 Essential (primary) hypertension (Chronic) I10 Asthma J45.909 Depression F32.9 Obesity E66.9 Ulcerative colitis K51.90 Paroxysmal atrial tachycardia I47.1 - Past Surgical History Surgical History: Past Surgical History (Last Reviewed 11/09/20 @ 11:[address] Jorge Gutiérrez MD) History of mitral valve repair (Acute) Onset Date: 10/08/20 Z98.890 MVr (P1-P2 and P2-P3 cleft closure, neochord medial part of P2, 35 Alvares band) 10/08/2020 History of colonoscopy Onset Date: 12/2019 Z98.890 History of esophagogastroduodenoscopy (EGD) Onset Date: 12/2019 Z98.890 History of left heart catheterization Onset Date: 07/23/20 Z98.890 Hx of cholecystectomy Z98.890, Z90.49 excision of tumor from lower spine Onset Date: 04/2016 Surgical History: noncontributory, - - Family History Summary Family History: Family History (Last Reviewed 11/09/20 @ 11:[address] Jorge Gutiérrez MD) Father CAD (coronary artery disease) Hypertension Diabetes Mother CAD (coronary artery disease) Hypertension Sister Diabetes Social History - Smoking History Smoking Status: Never smoker - Alcohol Use Alcohol Usage: Yes - Wine occasionally - Substance Abuse Hx Substance Use: No - Occupation Occupation (List type of work in comments):: Retired - Hobbies, Recreation, Social Activities Hobbies: Other - Grandbabies Recreational Activities: I am able to engage in most, but not all activities Social Environment - Status Marital Status: - Current Living Arrangements Living Environment:: Spouse - Children How many children do you have?: 3 Do any of your children live nearby?: Yes - one daughter is [place], [place] - Safety Do you feel safe in your surroundings?: Yes Review of Systems - Review of Systems Hints: Right click = Denies ([place]). Left click = Reports ([place]) Review of Present Symptoms: Reports: Shortness of Breath with Exertion - has severe asthma also., Wound Healing, Fatigue, Appetite - Normal, Appetite - Special Diet - No salt diet; using Mrs Dash and trying to eat moer conciously, Sleep - Normal. Denies: Operative Discomfort, Dizziness/Lightheadedness, Heart Arrhythmia/Irregularities, Sexual Changes - Pain Is Patient Pain Free?: Yes Pain Location: none Pain Level: 0/10 Risk Factor Assessment - Chief Complaint Chief Complaint: This is a 65 yr old female patient of Dr. Gutiérrez who presents to cardiac rehab today following recent mitral valve repair on 10/08/2020 at [facility]. - Vital Signs Temperature: 97.3 F Respiratory Rate: 16 Pulse Ox: 98 Blood Pressure: 128/78 - Pulse Pulse Rate: 74 Pulse Rhythm: Regular - Hypertension Blood Pressure Sitting - Left Arm: 128/78 - Blood Cholesterol/Lipids Total Cholesterol (mg/dL) Goal = less than 200 mg/dL: 150 - 11/06/2020 HDL Cholesterol (mg/dL) Goal = less than 40 mg/dL: 64 LDL Cholesterol (mg/dL) Goal = less than 70 mg/dL: 122 Triglycerides (mg/dL) Goal = less than 150 mg/dL: 197 - Diabetes Nutrition Referral for Diabetes: No - Obesity Height: 5 ft 2 in Weight:: 249 lb Weight in Pounds: 249.0 lbs Weight Source: Stated by Patient Body Mass Index (BMI): 45.5 Nutritional Referral for Obesity: Yes - Risk Stratification Risk Guidelines: Lowest Risk: Risk Factor for Smoking, Risk Factor for Diabetes, Risk Factor for Hypertension, Risk Factor for Sedentary Lifestyle, Risk Factor for Depression, Moderate Risk: Risk Factor for Dyslipidemia, Highest Risk: Risk Factor for Obesity - For Smoking Smoking Risk Guidelines: Smoking Low Risk: None or quit greater than 6 months ago. Smoking Moderate Risk: Smoker or quit 6 months or less ago. Smoking High Risk: Smoker - For Dyslipidemia Dyslipidemia Risk Guidelines: Low Risk: Moderate Risk: High Risk: 15-25% fat 25.1-29% fat >/= 30% fat. <7% sat fat 7-9% sat fat >9% sat fat. <150 mg chol 150-299 mg chol >/= 300 mg chol. LDL <100 LDL 100-129 LDL >/= 130. Chol/HDL ratio <5.0 Chol/HDL ratio 5.0-6.0 Chol/HDL ratio >6.0. Triglycerides <100 Triglycerides 100- 149 Triglycerides >/= 150 - For Diabetes Mellitus Diabetes Risk Guidelines: Diabetes Low Risk: HgA1c <6.5% and/or FBG <120. Diabetes Moderate Risk: HgA1c 6.6-7.9% and/or FBG 120-180. Diabetes High Risk: HgA1c >/= 8% and/or FBG >180 - For Obesity/Overweight Obesity/Overweight Risk Guidelines: Obesity Low Risk: BMI <25.0. Obesity Moderate Risk: BMI 25-29.9. Obesity High Risk: BMI >/= 30.0 - For Hypertension Hypertension Risk Guidelines: Hypertension Low Risk: Systolic <120 and Diastolic <80. Hypertension Moderate Risk: Systolic 120-139 and Diastolic 80-89. Hypertension High Risk: Systolic >/= 140 and Diastolic >/= 90 - For Sedentary Lifestyle Sedentary Lifestyle Risk Guidelines: Sedentary Lifestyle Low Risk: >/= 1,500 kcal/week. Sedentary Lifestyle Moderate Risk: 700-1,499 kcal/week. Sedentary Lifestyle High Risk: < 700 kcal/week - For Depression Depression Risk Guidelines: Depression Low Risk: Not clinically depressed. Depression Moderate Risk: Mildly depressed. Depression High Risk: Clinically depressed - Family History Family History: Family History (Last Reviewed 11/09/20 @ 11:[address] Jorge Gutiérrez MD) Father CAD (coronary artery disease) Hypertension Diabetes Mother CAD (coronary artery disease) Hypertension Sister Diabetes Motivation - Motivation to Participate On a scale of 1 to 10, how prepared are you to commit to attending program?: 10 What do you see as barriers to successfully being able to complete the program?: none What do you see as the benefits of succesfully completing the program? In other words, what do you hope to get out of participating in the program?: felling better, more energy, less shortness of breath Are there issues you are dealing with that will interfere with completing the p rogram?: none Do you have a spouse or signficant other, family or friends who will help support you to complete the program?: Yes
[2020-11-13 08:08] VITALS: BP 128/78; BMI 45.5
[2020-11-13 08:21] LABS: Anion Gap 7 (5-15); BUN 9 mg/dL (7-18); Calcium,Total 8.7 mg/dL (8.5-10.1); Chloride 102 mmol/L (98-107); Creatinine, Serum 0.64 mg/dL (0.55-1.02); EST Glomerular Filtration Rate 99 mL/min (>60); Est Glom Filt Rate - Afr Amer 120 mL/min (>60); Estimated Creatinine Clearance 70.24 ml/min; Glucose 108 mg/dL (74-106); Sodium Level 140 mmol/L (136-145)
[2020-11-13 08:25] VITALS: BP 128/78; PULSE 74; RESP 16; TEMP 36.3; O2SAT 98; BMI 45.5
== END ==
PROVIDERS: PCP Family Medicine; Referring Provider Internal Medicine Cardiovascular Disease; Visit Provider Internal Medicine Cardiovascular Disease
DX: E87.6 Hypokalemia (principal); I10 Essential (primary) hypertension; E66.9 Obesity, unspecified; Z98.890 Other specified postprocedural states
CPT/HCPCS: 36415; 80048

== ENCOUNTER → 2020-11-21 07:29 | Outpatient (CLI) | payer MEDICARE, SELFPAY ==
[2020-11-13 08:08] VITALS: BMI 45.5
[2020-11-13 08:25] VITALS: BMI 45.5
[2020-11-21 08:07] LABS: Anion Gap 4 (5-15); BUN 12 mg/dL (7-18); BUN/Creat Ratio 15.3 RATIO (10-20); Calcium,Total 9.2 mg/dL (8.5-10.1); Chloride 102 mmol/L (98-107); Creatinine, Serum 0.79 mg/dL (0.55-1.02); EST Glomerular Filtration Rate 78 mL/min (>60); Est Glom Filt Rate - Afr Amer 95 mL/min (>60); Glucose 109 mg/dL (74-106); Potassium 4.1 mmol/L (3.5-5.1); Sodium Level 133 mmol/L (136-145)
== END ==
PROVIDERS: PCP Family Medicine; Referring Provider Internal Medicine Cardiovascular Disease; Visit Provider Internal Medicine Cardiovascular Disease
DX: E87.6 Hypokalemia (principal)
CPT/HCPCS: 36415; 80048

== ENCOUNTER 2020-11-21 08:00 | Outpatient (RCR) | payer MEDICARE, SELFPAY ==
[2020-11-13 08:08] VITALS: BMI 45.5
[2020-11-13 08:25] VITALS: BMI 45.5
== END 2020-11-21 23:59 ==
LOC: CR 08:00
PROVIDERS: PCP Family Medicine; Referring Provider Internal Medicine Cardiovascular Disease; Visit Provider Internal Medicine Cardiovascular Disease
DX: I10 Essential (primary) hypertension (principal); Z98.890 Other specified postprocedural states; I34.1 Nonrheumatic mitral (valve) prolapse; I34.0 Nonrheumatic mitral (valve) insufficiency; R06.00 Dyspnea, unspecified
CPT/HCPCS: 93798

== ENCOUNTER 2020-12-21 08:00 | Outpatient (RCR) | payer MEDICARE, SELFPAY ==
[2020-11-13 08:08] VITALS: BMI 45.5
[2020-11-13 08:25] VITALS: BMI 45.5
--- NOTE | 2020-12-14 06:35 | CR.ITP_ITS ---
Exercise - 30-day Assessment - Visit Date of Eval: 12/14/20 Session #:: 11 - missed one scheduled session due to appt conflict - Physician Prescribed Exercise Modalities: Treadmill, NuStep Frequency: 3x/week for 12 weeks [36 sessions] Intensity: 60-80% of age predicted maximum heart rate reserve Current METSs:: 3.5 increase from 2.5 Target Heart Rate:: 100-132 Current RPE:: 11 Maximum Excercise HR:: 103 Resting Blood Pressure: 112/66 Maximum Exercise Blood Pressure: 130/80 EKG Type: NST to sinus tach w/frequent PVCs rare vent couplet. - Outcomes & Goals Goals:: Verbalizes understanding of THR, RPE & goal METS by session 6, Documents in home exercise log/reports 30 min aerobic 5 day/wk by DC, Demonstrates accurate pulse taking by DC - Intervention & Plan Exercise Program Goals: Instruct on personal THR & RPE, Instruct on MET level & personal MET goal, Show patient to take own pulse /validate performance until accurate, Instruct on home exercise - 30-day Reassessments 30 day Reassessments:: Progressing - Physical Activity Home Exercise Physical Activity - Home Exercise: Safe Exercise, Warm-up, Self-monitoring, Cool-Down, Home Exercise > 30 min Daily, Sitting Time <3 hours/daily - Outcomes & Goals Outcomes/Goals: Demonstrates correct Warm-up/exercise Cool-Down (S3) if = 2.5 METs, Verbalizes symptoms of exercise intolerance by Session 3 (S3), Demonstrate safe equipment use (S3) & follows exercise prescrition (6) - Intervention & Plan Plan/Intervention: Instruct warm-up & cool-down if exercising at > 2 METs, Instruct on symptoms of exercise intolerance & actions to take, Instruct & monitor on saf, Assess intial functional capacity & safety risk - 30-day Reassessments 30 day Reassessments:: Progressing Nutrition - 30-Day Assessment - Program Goals Nutrition Program Goals: LDL <100 optimal. 100 - 129 Near optimal. 130 - 159 Borderline High. 160 - 189 High. Total Cholesterol <200 desirable. 200 - 239 Borderline High. >/= 240 High. HDL < 40 Low >/=60 High. Triglycerides <150 desirable. <199 optimal. VlDL 5 - 40. HgbA1C <7%. BMI <25 Patient has diagnosis of Hyperlipidemia (ICD E78)?: Yes - Visit Date of Assessment:: 12/14/20 Session #:: 11 - no recent lab work - Cholesterol/Lipids Triglycerides (mg/dL): 197 Total Cholesterol (mg/dL): 225 LDL Cholesterol (mg/dL): 122 HDL Cholesterol (mg/dL): 64 Determine presence & major risk factors that modify LDL goal: Hypertension or hypertensive medication, Family history of premature CHD in Male < 55 years: female <65 yearsFa, Age men > 45 years; women >/= 55 years Outcomes/Goals: Pt IDs own risk factors & lifestyle modifications by Session 10, Verbalizes symptoms of angina & response by session 3., Pt independently manages Intervention/Plan: Instruct on personal lipid levels & lipid goals/NCEP guidelines, Instruct on cholesterol Referral to dietitian:: Yes 30-day Reassessments:: Progressing - Diabetes (Other Core Measures) Diabetes Type: Not Applicable - Weight Mgt (Other Care) Not Applicable: No Height: 5 ft 2 in Weight:: 252 lb 8 oz BMI: 46.1 Diagnosis Overweight/Obesity BMI> 30% ICD-10 E66: Yes Diagnosis High BMI/Morbid Obesity BMI> 35% ICD-10 Z68: Yes Outcomes/Goals: Pt sets, maintains & shows weight loss goal & trend during rehab Intervention/Plan: Instruct on ideal BMI & set weight loss goal w/patient, Assist pt to ID & incorporate diet changes for weight loss by S9, Refer to Structured Weight Loss program as appropriate, Encourage goal of using 250- 300dcal per session for weight loss 30 day Reassessments:: Progressing - Healthy Eating Habits Will attend diet classes:: Yes Outcomes/Goals:: Consume diet rich in vegs,fruits,whole grain/high fiber,fish,lean meat, Limit sat/trans fats,cholesterol & added salts & sugars Intervention/Plan:: Assess current eating habits 30-day Reassessments:: Progressing Medical- 30-Day Assessment - Visit Date of Eval: 12/14/20 Session #:: 11 - Medication Compliance Preventative Medication(s):: Aspirin, Statin/lipid H/O mental health issues: depression, anxiety, or addiction?: Yes Doesn?t believe in the benefits of treatment?: No Believes medications are unnecessary or harmful?: No Has a concern about medication side effects?: No Expresses concern over the cost of medications?: No Outcomes/Goals: Verbalizes medications,desired effect & common side effects @ DC, Pt self-reports following medication regimen, Keeps card in wallet w/medications listed by DC Interventions/plans: Instruct on medication effects & side effects, Review medication list w/patient every two weeks, Instruct importance of taking meds as ordered & assist problem solving 30-day Reassessments:: Progressing - Tobacco Use Tobacco Use: Non-smoker - Hypertension Hypertension Diagnosis:: Hypertension ICD-10 I10 Resting Blood Pressure:: 112/66 [place] [employer] Hypertension Guidelines: [place] [employer] Hypertension Guidelines. Normal BP Less than 120/80. Elevated BP 120/80. Hypertension Stage 1: BP 130-139/80-89. Hypertesnion Stage 2: BP 140 or higher/90 or higher. Hypertension Crisis: BP higher than 180/120 Peak Exercise Blood Pressure:: 130/80 Outcomes/Goals: Able to verbalize/achieve optimal blood pressure <130/80, Incorporates diet changes & exercise for blood pressure control by DC Interventions/plan: Instruct on optimal blood pressure, hypertension & medications, Instruct on effects of sodium, alcohol, stress, exercise &hypertension 30 day Reassessments:: Progressing - Tobacco Cessation Referral Smoking Cessation Referral:: No Individual Education/Counseling:: No Education Schedule Given:: Yes Psychosocial - 30-Day Assess - VIsit Date of Eval: 12/14/20 Session #:: 11 Not Applicable: No History of previous Mental disease:: Yes History of Emotional Disorders: Anxious, Depression - Target Goals Target Goals: Assess presence or absence of depression. Using a valid screening tool, maximizes coping skills. Positive support system - Psychosocial Test Tool Used:: PHQ-9 Questionnaire phq-9 Severity: Severity. 1-4 Minimal Depression. 5-9 Mild Depression. 10-14 Moderate Depression. 15-19 Moderately Sever Depression. 20-27 Severe Depression. Rule: Total Score:: 14 - PHQ-9 indicated moderate depression - Referral to Behavioral Health PS - Interventions: Yes Referral to Physician if PHQ-9 if score is 5-9: - PHQ-9 score 14, Yes Attend Stress Management Classes, No Referral to Behavioral Health if PHQ-9 score >9:, No Referral to [facility] - Outcomes/Goals: See list Psychosocial Outcomes/Goals:: ID's personal stressors & 2 strategies to manage stress by discharge - Intervention/Plan: See List Interventions/Plan:: Assess stressors,coping strategies & signs of derpression on admission, Instruct/assist pt to develop coping & personal stress Mgt strategies, Instruct patient to recognize signs & symptoms of depression, Instruct patient to recog - 30-day Reassessments: 30 day Reassessments:: Progressing Patient Health Questionnaire 30-Day Re-eval Assessment 1. Little interest or pleasure in doing things: More than half the days 2. Feeling down, depressed, or hopeless: More than half the days 3. Trouble falling or staying asleep, or sleeping too much: Nearly every day 4. Feeling tired or having little energy: Nearly every day 5. Poor appetite or overeating: Several days 6. Feeling bad about yourself -- or that you are a failure or have let yourself or your family down: More than half the days 7. Trouble concentrating on things, such as reading the newspaper or watching te levision: Several days 8. Moving or speaking so slowly that other people could have noticed. Or the opposite - being so fidgety or restless that you have been moving around a lot more than usual: Not at all 9. Thoughts that you would be better off , or of hurting yourself in some way: Not at all How difficult have these problems made it for you to do your work, take care of things at home, or get along with other people?: Somewhat difficult Total Score: 14 Self-Efficacy 30-Day Re-eval Assessment We would like to know how confident you are in doing certain activities. Please select your confidence level for:: Select your confidence level for the following using the scale 1-10 where 1 is not at all confident and 10 is totally confident. Your score is the average of all 6 responses. Fatigue: How confident are you that you can keep the fatigue caused by your disease from interfering with the things you want to do? Select Number: 7 Physical Discomfort or Pain: How confident are you that you can keep the physical discomfort or pain of your disease from interfering with the things you want to do? Select Number: 8 Emotional Distress: How confident are you that you can keep the emotional distress caused by your disease from interfering with the things you want to do? Select Number: 8 Other Symptoms or Health Problems: How confident are you that you can keep other symptoms or health problems from interfering with the things you want to do? Select Number: 8 Different Tasks and Activities: How confident are you that you can do the different tasks and activities needed to manage your health condition so as to reduce your need to see a doctor? Select Number: 9 Medication: How confident are you that you can do things other than just taking medication to reduce how much your illness affects your everyday life? Select Number: 7 Total Score:: 7
[2020-12-14 06:42] VITALS: BP 112/66; BP 130/80; BMI 46.1
== END 2020-12-21 23:59 ==
LOC: CR 08:00
PROVIDERS: PCP Family Medicine; Referring Provider Internal Medicine Cardiovascular Disease; Visit Provider Internal Medicine Cardiovascular Disease
DX: I34.1 Nonrheumatic mitral (valve) prolapse (principal); I34.0 Nonrheumatic mitral (valve) insufficiency; I10 Essential (primary) hypertension; Z98.890 Other specified postprocedural states; R06.00 Dyspnea, unspecified
CPT/HCPCS: 93798

== ENCOUNTER → 2020-12-27 12:48 | Outpatient (CLI) | payer MEDICARE, SELFPAY ==
[2020-11-13 08:25] VITALS: BMI 45.5
[2020-12-14 06:42] VITALS: BMI 46.1
--- NOTE | 2020-12-27 12:51 | VDLE_ITS ---
Reason For Study: Left leg pain Procedure LEFT This is a venous duplex using B-mode, color GSV is normal. flow and spectral Doppler. CFV is compressible, spontaneous, phasic, Exam performed in department. competent, and demonstrates normal A preliminary report was called and/or faxed augmentation. to [facility]. FV is compressible, spontaneous, phasic, competent and demonstrates normal augmentation. POP V is compressible, spontaneous, phasic, competent and demonstrates normal augmentation. T/P Trunk is compressible. PTV is compressible. LT PerV is compressible. Nonvascularized structure noted in the left popliteal fossa measuring approximently 1.72 x 1.59 x 2.71 cm. VL/Venous Duplex US, Unilateral Interpretation Summary Deep veins of the left lower extremity are patent and compressible segmentally. There is no evidence of left lower extremity deep vein thrombosis. Valvular competence appears intac t within the proximal deep venous system on the left . The left great saphenous vein appears patent a nd compressible segmentally. A non-vascular, hypoechoic structure is noted in the left poplitea l space, measuring 1.72 cm x 1.59 cm x 2.71 cm. This probably represents a popliteal cyst. Clinica l correlation is advised. Ordering Physician: James Renteria Referring Physician: James Renteria Performed By: Nava Rodriguez RVT
== END ==
PROVIDERS: PCP Family Medicine; Visit Provider Family Medicine
DX: M79.605 Pain in left leg (principal)
CPT/HCPCS: 93971

== ENCOUNTER 2021-01-18 08:00 | Outpatient (RCR) | payer MEDICARE, SELFPAY ==
[2020-11-13 08:25] VITALS: BMI 45.5
[2020-12-14 06:42] VITALS: BMI 46.1
[2020-12-22 00:50] VITALS: BP 112/66; BP 130/80
--- NOTE | 2021-01-14 07:02 | CR.ITP_ITS ---
Diagnosis Exercise - 60-day Assessment - Visit Date of Eval: 01/14/21 Session #:: 20 - Physician Prescribed Exercise Modalities: NuStep - Only doing NuStep device due to knee issues. Frequency: 3x/week for 12 weeks [36 sessions] Intensity: 60-80% of age predicted maximum heart rate reserve Current METSs:: 3.5 unchanged Target Heart Rate:: 100-132 Current RPE:: 11-12 Maximum Excercise HR:: 82 Resting Blood Pressure: 122/80 Maximum Exercise Blood Pressure: 130/72 EKG Type: Sinus rhythm with occas. PVCs rare venticular couplet. - Outcomes & Goals Goals:: Verbalizes understanding of THR, RPE & goal METS by session 6, Documents in home exercise log/reports 30 min aerobic 5 day/wk by DC, Demonstrates accurate pulse taking by DC - Intervention & Plan Exercise Program Goals: Instruct on personal THR & RPE, Instruct on MET level & personal MET goal, Show patient to take own pulse /validate performance until accurate, Instruct on home exercise - 30-day Reassessments 30 day Reassessments:: Met - Physical Activity Home Exercise Physical Activity - Home Exercise: Safe Exercise, Warm-up, Self-monitoring, Cool-Down, Home Exercise > 30 min Daily, Sitting Time <3 hours/daily - Outcomes & Goals Outcomes/Goals: Demonstrates correct Warm-up/exercise Cool-Down (S3) if = 2.5 METs, Verbalizes symptoms of exercise intolerance by Session 3 (S3), Demonstrate safe equipment use (S3) & follows exercise prescrition (6) - Intervention & Plan Plan/Intervention: Instruct warm-up & cool-down if exercising at > 2 METs, Instruct on symptoms of exercise intolerance & actions to take, Instruct & monitor on saf, Assess intial functional capacity & safety risk - 30-day Reassessments 30 day Reassessments:: Met Nutrition - Initial Assessment Nutrition - 30-Day Assessment Nutrition - 60-Day Assessment - Program Goals Nutrition Program Goals: LDL <100 optimal. 100 - 129 Near optimal. 130 - 159 Borderline High. 160 - 189 High. Total Cholesterol <200 desirable. 200 - 239 Borderline High. >/= 240 High. HDL < 40 Low >/=60 High. Triglycerides <150 desirable. <199 optimal. VlDL 5 - 40. HgbA1C <7%. BMI <25 Patient has diagnosis of Hyperlipidemia (ICD E78)?: Yes - Visit Date of Assessment:: 01/14/21 Session #:: 20 - Cholesterol/Lipids Triglycerides (mg/dL): 0 - no update lab draw. Determine presence & major risk factors that modify LDL goal: Hypertension or hypertensive medication, Low HDL cholesterol <40 mg/dL*, Family history of premature CHD in Male < 55 years: female <65 yearsFa, Age men > 45 years; women >/= 55 years Outcomes/Goals: Pt IDs own risk factors & lifestyle modifications by Session 10, Verbalizes symptoms of angina & response by session 3., Pt independently manages Intervention/Plan: Instruct on personal lipid levels & lipid goals/NCEP guidelines, Instruct on cholesterol Referral to dietitian:: Yes - Medical Nutrition Therapy 30-day Reassessments:: Progressing - Diabetes (Other Core Measures) Diabetes Type: Not Applicable - Weight Mgt (Other Care) Not Applicable: No Height: 5 ft 2 in Weight:: 250 lb BMI: 45.7 Diagnosis Overweight/Obesity BMI> 30% ICD-10 E66: Yes Diagnosis High BMI/Morbid Obesity BMI> 35% ICD-10 Z68: Yes Outcomes/Goals: Pt sets, maintains & shows weight loss goal & trend during rehab Intervention/Plan: Instruct on ideal BMI & set weight loss goal w/patient, Assist pt to ID & incorporate diet changes for weight loss by S9, Refer to Structured Weight Loss program as appropriate, Encourage goal of using 250- 300dcal per session for weight loss 30 day Reassessments:: Not Met - weight unchanged - Healthy Eating Habits Will attend diet classes:: Yes Outcomes/Goals:: Consume diet rich in vegs,fruits,whole grain/high fiber,fish,lean meat, Limit sat/trans fats,cholesterol & added salts & sugars Intervention/Plan:: Assess current eating habits 30-day Reassessments:: Progressing Nutrition - 90-Day Assessment Nutrition - Final Assessment Medical - Initial Assessment Medical- 30-Day Assessment Medical- 60-Day Assessment - Visit Date of Eval: 01/14/21 Session #:: 20 - Medication Compliance Preventative Medication(s):: Aspirin, Statin/lipid, Beta h[place] H/O mental health issues: depression, anxiety, or addiction?: No Doesn?t believe in the benefits of treatment?: No Believes medications are unnecessary or harmful?: No Has a concern about medication side effects?: No Expresses concern over the cost of medications?: No Outcomes/Goals: Verbalizes medications,desired effect & common side effects @ DC, Pt self-reports following medication regimen, Keeps card in wallet w/medications listed by DC Interventions/plans: Instruct on medication effects & side effects, Review medication list w/patient every two weeks, Instruct importance of taking meds as ordered & assist problem solving 30-day Reassessments:: Met - Tobacco Use Tobacco Use: Non-smoker - Hypertension Hypertension Diagnosis:: Hypertension ICD-10 I10 Resting Blood Pressure:: 122/80 [place] [employer] Hypertension Guidelines: [place] [employer] Hypertension Guidelines. Normal BP Less than 120/80. Elevated BP 120/80. Hypertension Stage 1: BP 130-139/80-89. Hypertesnion Stage 2: BP 140 or higher/90 or higher. Hypertension Crisis: BP higher than 180/120 Peak Exercise Blood Pressure:: 142/76 Outcomes/Goals: Able to verbalize/achieve optimal blood pressure <130/80, Incorporates diet changes & exercise for blood pressure control by DC Interventions/plan: Instruct on optimal blood pressure, hypertension & medications, Instruct on effects of sodium, alcohol, stress, exercise &hy pertension 30 day Reassessments:: Progressing - Tobacco Cessation Referral Smoking Cessation Referral:: No Individual Education/Counseling:: No Education Schedule Given:: Yes Medical- 90-Day Assessment Medical - Final Assessment Psychosocial - Initial Assess Psychosocial - 30-Day Assess Psychosocial - 60-Day Assess - VIsit Date of Eval: 01/14/21 Not Applicable: Yes History of previous Mental disease:: No - Psychosocial Test Tool Used:: PHQ-9 Questionnaire phq-9 Severity: Severity. 1-4 Minimal Depression. 5-9 Mild Depression. 10-14 Moderate Depression. 15-19 Moderately Sever Depression. 20-27 Severe Depression. Rule: See PHQ-9 Score: 7 - Referral to Behavioral Health PS - Interventions: Yes Attend Stress Management Classes, No Referral to Behavioral Health if PHQ-9 score >9:, No Referral to [facility], No Referral to Physician if PHQ-9 if score is 5-9: - Refer to Dr. Renteria concerns of depression. - Intervention/Plan: See List Interventions/Plan:: Assess stressors,coping strategies & signs of derpression on admission, Instruct/assist pt to develop coping & personal stress Mgt strategies, Instruct patient to recognize signs & symptoms of depression, Instruct patient to recog - 30-day Reassessments: 30 day Reassessments:: Progressing Psychosocial - 90-Day Assess Psychosocial - Final Assessmen Patient Health Questionnaire 60-Day Re-eval Assessment 1. Little interest or pleasure in doing things: Several days 2. Feeling down, depressed, or hopeless: Several days 3. Trouble falling or staying asleep, or sleeping too much: More than half the days 4. Feeling tired or having little energy: More than half the days 5. Poor appetite or overeating: Not at all 6. Feeling bad about yourself -- or that you are a failure or have let yourself or your family down: Several days 7. Trouble concentrating on things, such as reading the newspaper or watching television: Not at all 8. Moving or speaking so slowly that other people could have noticed. Or the opposite - being so fidgety or restless that you have been moving around a lot more than usual: Not at all 9. Thoughts that you would be better off , or of hurting yourself in some way: Not at all How difficult have these problems made it for you to do your work, take care of things at home, or get along with other people?: Somewhat difficult Total Score: 7 Self-Efficacy 60-Day Re-eval Assessment We would like to know how confident you are in doing certain activities. Please select your confidence level for:: Select your confidence level for the following using the scale 1-10 where 1 is not at all confident and 10 is totally confident. Your score is the average of all 6 responses. Fatigue: How confident are you that you can keep the fatigue caused by your disease from interfering with the things you want to do? Select Number: 7 Physical Discomfort or Pain: How confident are you that you can keep the physical discomfort or pain of your disease from interfering with the things you want to do? Select Number: 8 Emotional Distress: How confident are you that you can keep the emotional distress caused by your disease from interfering with the things you want to do? Select Number: 9 Other Symptoms or Health Problems: How confident are you that you can keep other symptoms or health problems from interfering with the things you want to do? Select Number: 8 Different Tasks and Activities: How confident are you that you can do the different tasks and activities needed to manage your health condition so as to reduce your need to see a doctor? Select Number: 9 Medication: How confident are you that you can do things other than just taking medication to reduce how much your illness affects your everyday life? Select Number: 9 Total Score:: 8 Nutrition Survey
[2021-01-14 07:11] VITALS: BP 122/80; BP 142/76; BMI 45.7
== END 2021-01-21 23:59 ==
LOC: CR 08:00
PROVIDERS: PCP Family Medicine; Referring Provider Internal Medicine Cardiovascular Disease; Visit Provider Internal Medicine Cardiovascular Disease
DX: I34.1 Nonrheumatic mitral (valve) prolapse (principal); I34.0 Nonrheumatic mitral (valve) insufficiency; I10 Essential (primary) hypertension; Z98.890 Other specified postprocedural states; R06.00 Dyspnea, unspecified
CPT/HCPCS: 93798

== ENCOUNTER → 2021-02-07 08:04 | Outpatient (CLI) | payer MEDICARE, SELFPAY ==
[2020-11-13 08:25] VITALS: BMI 45.5
[2021-01-14 07:11] VITALS: BMI 45.7
[2021-02-07 08:32] LABS: Absolute Lymphocyte Count 1.84 X10^3/uL (0.83-4.51); Absolute Neutrophil Count 2.9 X10^3/uL (2.0-7.7); Basophil# 0.04 X10^3/uL; Basophil% 0.7 % (0-1); Eosinophil# 0.17 X10^3/uL; Eosinophils% 3.1 % (0-5); Hematocrit 44.7 % (37-47); Hemoglobin 14.2 g/dL (12.0-15.0); Lymphocyte # 1.84 X10^3/ul (0.83-4.51); Lymphocyte % 33.9 % (19-41); Mean Corp Hgb Conc 31.8 g/dL (32-36); Mean Corpuscular Hgb 28.1 pg (27.0-32.0); Mean Corpuscular Volume 88.5 fL (81-99); Mean Platelet Vol. 9.8 fl (6.2-12.0); Monocyte# 0.44 X10^3/uL; Monocyte% 8.1 % (0-10); NRBC Flagged by Analyzer 0 % (0-5); Neutrophil # 2.92 X10^3/uL (2.7-7.7); Neutrophil % 53.8 % (47-70); Platelet Count 199 K/mm3 (150-450); RBC Distribution Width CV 13.5 % (11.6-14.6); RBC Distribution Width SD 43.7 fl (35.1-43.9); Red Blood Count 5.05 M/mm3 (4.2-5.4); White Blood Count 5.4 K/mm3 (4.4-11.0)
[2021-02-07 08:45] LABS: Erythrocyte Sedimentation Rate 5 mm/hr (0-30)
[2021-02-07 08:57] LABS: AST(SGOT) 20 U/L (15-37); Alanine Aminotransfer ALT/SGPT 23 U/L (13-56); Albumin, Serum 3.2 g/dL (3.2-5.0); Alkaline Phosphatase 116 U/L (45-117); Anion Gap 5 (5-15); BUN 14 mg/dL (7-18); BUN/Creat Ratio 21.1 RATIO (10-20); CRP 7.69 mg/L (0.0-3.0); Calcium,Total 8.9 mg/dL (8.5-10.1); Chloride 105 mmol/L (98-107); Creatinine, Serum 0.66 mg/dL (0.55-1.02); EST Glomerular Filtration Rate 95 mL/min (>60); Est Glom Filt Rate - Afr Amer 115 mL/min (>60); Globulin 3.2 g/dL (2.2-4.2); Glucose 107 mg/dL (74-106); Potassium 4.2 mmol/L (3.5-5.1); Protein, Total 6.4 g/dL (6.4-8.2); Sodium Level 140 mmol/L (136-145); Vitamin D,25 Hydroxy 48.6 ng/mL
[2021-02-10 04:06] LABS: QNTFERON TB Mitogen Value > 10.00 IU/mL (.); QNTFERON TB Nil Value 0 IU/mL (.); QNTFERON TB1+ Ag Value 0 IU/mL (.); QNTFERON TB2+ Ag Value 0 IU/mL (.)
[2021-02-10 08:55] LABS: QNTIFERON TB Positive Criteria Negative (Negative)
== END ==
PROVIDERS: PCP Family Medicine
DX: K51.00 Ulcerative (chronic) pancolitis without complications (principal)
CPT/HCPCS: 36415; 80053; 82306; 85025; 85652; 86140; 86480

== ENCOUNTER 2021-02-20 08:00 | Outpatient (RCR) | payer MEDICARE, SELFPAY ==
[2020-11-13 08:25] VITALS: BMI 45.5
[2021-01-14 07:11] VITALS: BMI 45.7
[2021-01-22 00:32] VITALS: BP 122/80; BP 142/76
--- NOTE | 2021-02-12 08:14 | PCM.CR.ITP ---
Diagnosis Exercise - 90-day Assessment - Visit Date of Eval: 02/12/21 Session #:: 30 - Physician Prescribed Exercise Modalities: NuStep Frequency: 3x/week for 12 weeks [36 sessions] Intensity: 60-80% of age predicted maximum heart rate reserve Current METSs:: 3.5 limited due to knee issues Target Heart Rate:: 100-132 Current RPE:: 13 Maximum Excercise HR:: 76 Resting Blood Pressure: 118/78 Maximum Exercise Blood Pressure: 130/72 EKG Type: NSR with PVCs, vent bigeminy, vent couplet, burst PAT - Outcomes & Goals Goals:: Verbalizes understanding of THR, RPE & goal METS by session 6, Documents in home exercise log/reports 30 min aerobic 5 day/wk by DC, Demonstrates accurate pulse taking by DC - Intervention & Plan Exercise Program Goals: Instruct on personal THR & RPE, Instruct on MET level & personal MET goal, Show patient to take own pulse /validate performance until accurate, Instruct on home exercise - 30-day Reassessments 30 day Reassessments:: Progressing - Physical Activity Home Exercise Physical Activity - Home Exercise: Safe Exercise, Warm-up, Self-monitoring, Cool-Down, Home Exercise > 30 min Daily, Sitting Time <3 hours/daily - Outcomes & Goals Outcomes/Goals: Demonstrates correct Warm-up/exercise Cool-Down (S3) if = 2.5 METs, Verbalizes symptoms of exercise intolerance by Session 3 (S3), Demonstrate safe equipment use (S3) & follows exercise prescrition (6) - Intervention & Plan Plan/Intervention: Instruct warm-up & cool-down if exercising at > 2 METs, Instruct on symptoms of exercise intolerance & actions to take, Instruct & monitor on saf, Assess intial functional capacity & safety risk - 30-day Reassessments 30 day Reassessments:: Progressing Nutrition - Initial Assessment Nutrition - 30-Day Assessment Nutrition - 60-Day Assessment Nutrition - 90-Day Assessment - Program Goals Nutrition Program Goals: LDL <100 optimal. 100 - 129 Near optimal. 130 - 159 Borderline High. 160 - 189 High. Total Cholesterol <200 desirable. 200 - 239 Borderline High. >/= 240 High. HDL < 40 Low >/=60 High. Triglycerides <150 desirable. <199 optimal. VlDL 5 - 40. HgbA1C <7%. BMI <25 Patient has diagnosis of Hyperlipidemia (ICD E78)?: Yes - Cholesterol/Lipids Determine presence & major risk factors that modify LDL goal: Hypertension or hypertensive medication Outcomes/Goals: Pt IDs own risk factors & lifestyle modifications by Session 10, Verbalizes symptoms of angina & response by session 3., Pt independently manages Intervention/Plan: Instruct on personal lipid levels & lipid goals/NCEP guidelines, Instruct on cholesterol 30-day Reassessments:: Progressing - Diabetes (Other Core Measures) Diabetes Type: Not Applicable - Weight Mgt (Other Care) Not Applicable: No Height: 5 ft 2 in Weight:: 254 lb BMI: 46.4 Diagnosis Overweight/Obesity BMI> 30% ICD-10 E66: Yes Diagnosis High BMI/Morbid Obesity BMI> 35% ICD-10 Z68: Yes Outcomes/Goals: Pt sets, maintains & shows weight loss goal & trend during rehab Intervention/Plan: Instruct on ideal BMI & set weight loss goal w/patient, Assist pt to ID & incorporate diet changes for weight loss by S9, Encourage goal of using 250-300dcal per session for weight loss 30 day Reassessments:: Not Met - Healthy Eating Habits Will attend diet classes:: Yes Outcomes/Goals:: Consume diet rich in vegs,fruits,whole grain/high fiber,fish,lean meat, Limit sat/trans fats,cholesterol & added salts & sugars Intervention/Plan:: Assess current eating habits 30-day Reassessments:: Progressing Nutrition - Final Assessment Medical - Initial Assessment Medical- 30-Day Assessment Medical- 60-Day Assessment Medical- 90-Day Assessment - Visit Date of Eval: 02/12/21 Session #:: 31 - Medication Compliance Preventative Medication(s):: Aspirin, Statin/lipid, Beta [place] H/O mental health issues: depression, anxiety, or addiction?: Yes Doesn?t believe in the benefits of treatment?: No Believes medications are unnecessary or harmful?: No Has a concern about medication side effects?: No Expresses concern over the cost of medications?: No Outcomes/Goals: Verbalizes medications,desired effect & common side effects @ DC, Pt self-reports following medication regimen, Keeps card in wallet w/medications listed by DC Interventions/plans: Instruct on medication effects & side effects, Review medication list w/patient every two weeks, Instruct importance of taking meds as ordered & assist problem solving 30-day Reassessments:: Met - Tobacco Use Tobacco Use: Non-smoker - Hypertension Hypertension Diagnosis:: Hypertension ICD-10 I10 Resting Blood Pressure:: 118/78 [place] [employer] Hypertension Guidelines: [place] [employer] Hypertension Guidelines. Normal BP Less than 120/80. Elevated BP 120/80. Hypertension Stage 1: BP 130-139/80-89. Hypertesnion Stage 2: BP 140 or higher/90 or higher. Hypertension Crisis: BP higher than 180/120 Peak Exercise Blood Pressure:: 130/72 Outcomes/Goals: Able to verbalize/achieve optimal blood pressure <130/80, Incorporates diet changes & exercise for blood pressure control by DC Interventions/plan: Instruct on optimal blood pressure, hypertension & medications, Instruct on effects of sodium, alcohol, stress, exercise &hypertension 30 day Reassessments:: Progressing - Tobacco Cessation Referral Smoking Cessation Referral:: No Individual Education/Counseling:: No Education Schedule Given:: Yes Medical - Final Assessment Psychosocial - Initial Assess Psychosocial - 30-Day Assess Psychosocial - 60-Day Assess Psychosocial - 90-Day Assess - VIsit Date of Eval: 02/12/21 Session #:: 31 Not Applicable: No History of previous Mental disease:: Yes History of Emotional Disorders: Depression - Psychosocial Test Tool Used:: PHQ-9 Questionnaire phq-9 Severity: Severity. 1-4 Minimal Depression. 5-9 Mild Depression. 10-14 Moderate Depression. 15-19 Moderately Sever Depression. 20-27 Severe Depression. Rule: - Referral to Behavioral Health PS - Interventions: Yes Attend Stress Management Classes, No Referral to Behavioral Health if PHQ-9 score >9:, No Referral to [facility], No Referral to Physician if PHQ-9 if score is 5-9: - Outcomes/Goals: See list Psychosocial Outcomes/Goals:: ID's personal stressors & 2 strategies to manage stress by discharge - Intervention/Plan: See List Interventions/Plan:: Assess stressors,coping strategies & signs of derpression on admission, Instruct/assist pt to develop coping & personal stress Mgt strategies, Instruct patient to recognize signs & symptoms of depression, Instruct patient to recog - 30-day Reassessments: 30 day Reassessments:: Progressing Psychosocial - Final Assessmen Patient Health Questionnaire 90-Day Re-eval Assessment 1. Little interest or pleasure in doing things: Several days 2. Feeling down, depressed, or hopeless: Several days 3. Trouble falling or staying asleep, or sleeping too much: More than half the days 4. Feeling tired or having little energy: More than half the days 5. Poor appetite or overeating: Not at all 6. Feeling bad about yourself -- or that you are a failure or have let yourself or your family down: Several days 7. Trouble concentrating on things, such as reading the newspaper or watching television: Not at all 8. Moving or speaking so slowly that other people could have noticed. Or the opposite - being so fidgety or restless that you have been moving around a lot more than usual: Not at all 9. Thoughts that you would be better off , or of hurting yourself in some way: Not at all How difficult have these problems made it for you to do your work, take care of things at home, or get along with other people?: Somewhat difficult Total Score: 7 Self-Efficacy 90-Day Re-eval Assessment We would like to know how confident you are in doing certain activities. Please select your confidence level for:: Select your confidence level for the following using the scale 1-10 where 1 is not at all confident and 10 is totally confident. Your score is the average of all 6 responses. Fatigue: How confident are you that you can keep the fatigue caused by your disease from interfering with the things you want to do? Select Number: 9 Physical Discomfort or Pain: How confident are you that you can keep the physical discomfort or pain of your disease from interfering with the things you want to do? Select Number: 9 Emotional Distress: How confident are you that you can keep the emotional distress caused by your disease from interfering with the things you want to do? Select Number: 9 Other Symptoms or Health Problems: How confident are you that you can keep other symptoms or health problems from interfering with the things you want to do? Select Number: 9 Different Tasks and Activities: How confident are you that you can do the different tasks and activities needed to manage your health condition so as to reduce your need to see a doctor? Select Number: 9 Medication: How confident are you that you can do things other than just taking medication to reduce how much your illness affects your everyday life? Select Number: 9 Total Score:: 9 Nutrition Survey
[2021-02-12 08:21] VITALS: BP 118/78; BP 130/72; BMI 46.4
== END 2021-02-20 23:59 ==
LOC: CR 08:00
PROVIDERS: PCP Family Medicine; Referring Provider Internal Medicine Cardiovascular Disease; Visit Provider Internal Medicine Cardiovascular Disease
DX: I34.1 Nonrheumatic mitral (valve) prolapse (principal); I34.0 Nonrheumatic mitral (valve) insufficiency; I10 Essential (primary) hypertension; Z98.890 Other specified postprocedural states; R06.00 Dyspnea, unspecified
CPT/HCPCS: 93798

== ENCOUNTER 2021-02-22 07:10 | Outpatient (RCR) | payer MEDICARE, SELFPAY ==
[2020-11-13 08:25] VITALS: BMI 45.5
[2021-02-12 08:21] VITALS: BMI 46.4
[2021-02-21 00:24] VITALS: BP 118/78; BP 130/72
== END 2021-03-23 23:59 ==
LOC: CR 07:10
PROVIDERS: PCP Family Medicine; Referring Provider Internal Medicine Cardiovascular Disease; Visit Provider Internal Medicine Cardiovascular Disease
DX: I34.1 Nonrheumatic mitral (valve) prolapse (principal); I34.0 Nonrheumatic mitral (valve) insufficiency; I10 Essential (primary) hypertension; R06.00 Dyspnea, unspecified; Z98.890 Other specified postprocedural states
CPT/HCPCS: 93798

== ENCOUNTER → 2021-05-21 10:22 | Outpatient (CLI) | payer MEDICARE, SELFPAY ==
[2021-02-12 08:21] VITALS: BMI 46.4
[2021-05-21 11:30] LABS: BNP,B-Type NATRIURETIC PEPTIDE 31.6 pg/mL (0-100)
== END ==
PROVIDERS: PCP Family Medicine; Referring Provider Internal Medicine Cardiovascular Disease; Visit Provider Internal Medicine Cardiovascular Disease
DX: R06.09 Other forms of dyspnea (principal)
CPT/HCPCS: 36415; 83880

== ENCOUNTER → 2021-06-13 | Outpatient (CLI) | payer MEDICARE, SELFPAY ==
[2021-02-12 08:21] VITALS: BMI 46.4
[2021-06-17 08:29] LABS: Calprotectin, Stool 20 ug/g (0-120)
== END | disposition home or self-care (01) ==
LOC: LABSPEC 06:36
PROVIDERS: PCP Family Medicine
DX: R19.7 Diarrhea, unspecified (principal); K51.00 Ulcerative (chronic) pancolitis without complications
CPT/HCPCS: 83630; 83993; 87493; 87506

== ENCOUNTER 2021-08-26 17:46 | Outpatient (CLI) | payer MEDICARE, SELFPAY ==
[2021-02-12 08:21] VITALS: BMI 46.4
== END 2021-08-26 23:59 | disposition home or self-care (01) ==
PROVIDERS: Visit Provider Family Medicine
DX: Z20.822 Contact with and (suspected) exposure to COVID-19 (principal)
CPT/HCPCS: 87635; U0003; U0005

== ENCOUNTER 2022-05-29 11:56 | Emergency (ER) | payer MEDICARE, OTHER, SELFPAY ==
[2021-02-12 08:21] VITALS: BMI 46.4
[2022-05-29 11:57] VITALS: BP 148/96; PULSE 117; RESP 18; TEMP 36.6; O2SAT 99; BMI 28.1
--- NOTE | 2022-05-29 13:20 | EX.ED.DYSGE1 ---
HPI History of Present Illness Chief Complaint: Nausea/Vomiting/Diarrhea Detail of Chief Complaint: Nausea and vomiting x4 days Informant: patient Narrative Narrative: Patient presents to the emergency department complaint of vomiting that started 4 days ago. She denies fever. She denies abdominal pain. She denies chest pain. Denies sick contacts. Denies eating any undercooked foods or suspicious foods. She is not been on antibiotics. Patient states that she throws up every time she tries to stand up. She denies lightheadedness or dizziness however. Patient spoke with her primary care physician and was advised to come to the emergency department. Patient complains of dysuria. Prior similar symptoms: No PFSH PFSH Medical History Asthma Depression Essential (primary) hypertension Nonrheumatic mitral (valve) insufficiency Nonrheumatic mitral valve prolapse Obesity Paroxysmal atrial tachycardia Pericardial effusion (11/09/20) Ulcerative colitis Home Medications pantoprazole 40 mg tablet,delayed release 40 mg PO DAILY 03/05/16 [History Last Taken 07/23/20] albuterol sulfate 90 mcg/actuation aerosol inhaler 1 - 2 puff inhalation Q4H PRN PRN Wheezing ##1 04/15/17 [Rx Last Taken Unknown] ergocalciferol (vitamin D2) 1,250 mcg (50,000 unit) capsule 50,000 unit PO QWEEK 08/05/17 [History Last Taken Unknown] budesonide-formoterol HFA 160 mcg-4.5 mcg/actuation aerosol inhaler (Symbicort) 2 inh inhalation DIRECTED PRN Sob &/Or Wheezing 06/28/19 [History Last Taken Unknown] fluticasone 250 mcg-salmeterol 50 mcg/dose blistr powdr for inhalation (Advair Diskus) 1 inh inhalation BID 06/28/19 [History Last Taken Unknown] Handicap Placard #1 ea 05/06/21 [Rx Last Taken Unknown] vedolizumab 300 mg intravenous solution 300 mg .Route .every 2 months 05/21/21 [History Last Taken Unknown] venlafaxine 150 mg capsule,extended release 24 hr 150 mg PO DAILY 05/21/21 [History Last Taken Unknown] amoxicillin 500 mg tablet 2,000 mg PO .COMPLEX #8 tabs 09/03/21 [Rx Last Taken Unknown] potassium chloride 20 mEq tablet,extended release 20 meq PO DAILY #90 tabs 12/11/21 [Rx Last Taken Unknown] furosemide 40 mg tablet (Lasix) 40 mg PO DAILY #90 tabs 05/27/22 [Rx Last Taken Unknown] metoprolol succinate 50 mg tablet,extended release 24 hr (Toprol XL) 50 mg PO DAILY #90 tabs 05/27/22 [Rx Last Taken Unknown] ondansetron 4 mg disintegrating tablet 4 mg PO Q8H PRN PRN Nausea #10 tabs 05/29/22 [Rx Last Taken Unknown] phenazopyridine 200 mg tablet (Pyridium) 200 mg PO BID PRN PRN Pain #10 tabs 05/29/22 [Rx Last Taken Unknown] sulfamethoxazole 800 mg-trimethoprim 160 mg tablet 1 tab PO BID #14 TABLETS 05/29/22 [Rx Last Taken Unknown] Allergy/AdvReac Type Severity Reaction Status Date / Time lisinopril AdvReac cough Verified 05/29/22 11:56 Family History Father CAD (coronary artery disease) Hypertension Diabetes Mother CAD (coronary artery disease) Hypertension Sister Diabetes Surgical History excision of tumor from lower spine (04/2016) History of colonoscopy (12/2019) History of esophagogastroduodenoscopy (EGD) (12/2019) History of left heart catheterization (07/23/20) History of mitral valve repair (10/08/20) Hx of cholecystectomy Social History Smoking Status: Never smoker ROS ROS ED Review of Systems ROS Unobtainable: other Constitutional Constitutional ED: Reports lethargy; Denies chills, fever(s), sweats or weight loss Eyes Eyes: Denies blurry vision, change in vision or diplopia ENT ENT ED: Denies rhinorrhea or sore throat Cardiovascular Cardiovascular: Denies chest pain, orthopnea or racing heartbeat Respiratory/Chest Respiratory/Chest: Denies cough, dyspnea, dyspnea on exertion, orthopnea or sputum Gastrointestinal Gastrointestinal: Reports nausea and vomiting; Denies abdominal pain or diarrhea Genitourinary Genitourinary ED: Reports dysuria and urinary frequency; Denies hematuria Musculoskeletal Musculoskeletal: Denies arthralgias, back pain, myalgias or neck pain Integumentary Denies abscess, Abrasions or rash Neurologic Neurologic: Denies headache(s) or weakness Psychiatric Psychiatric: Denies anxiety, depression or suicidal thoughts Endocrine Endocrinology: Denies polydipsia, polyphagia or polyuria Hematologic/Lymphatic Hematologic/Lymphatic: Denies easy bleeding, easy bruising or lymphadenopathy Allergic/Immunologic Allergic/Immunologic ED: Denies mouth swelling, tongue swelling or urticaria EXAM Physical Exam Const Vital Signs: 05/29/22 11:57 Temperature 97.8 F Temperature Source Temporal Pulse Rate 117 H Respiratory Rate 18 Blood Pressure 148/96 H Blood Pressure Mean 113 Pulse Ox 99 Oxygen Delivery Method Room Air Positive well nourished and well developed General Appearance ED: well developed and NAD HEENT Reports TM's clear and moist mucous membranes normocephalic and atraumatic; Negative for trauma or tenderness Tympanic Membrane ED: Yes TM's clear Eyes PERRL and EOMs intact bilaterally General Eye ED: Negative for pale conjunctiva or scleral icterus Neck no lymphadenopathy, supple and no JVD General: Negative for tenderness Chest Wall inspection of chest normal and palpation of chest normal Chest: Negative for tenderness Resp normal respiratory effort and clear to auscultation bilaterally Effort and Inspection: Negative for respiratory distress or pain with movement Auscultation: Negative for rhonchi, wheezes or diminished lung sounds Cardio regular rate, regular rhythm, S1 normal heart sound, S2 normal heart sound and no murmurs Peripheral Pulses: pulses 2+ throughout GI normal to inspection, nondistended, normoactive bowel sounds, soft to palpation, non-tender, non-distended and no masses Back/Spine no CVA tenderness and no thoracic nor lumbar tenderness Extremity normal to inspection General Extremety ED: Negative for edema General Extremity: Negative for edema Neuro oriented x3, CN's II-XII intact bilaterally, no sensory deficits noted and gait normal Sensorium / Orientation: awake, alert, oriented to person, oriented to place and oriented to time Motor Exam: strength 5/5 throughout and strength abnormal Psych mental status grossly normal Skin no rashes or lesions noted and no wounds MDM MDM MDM Narrative Medical decision making narrative: IV line established on arrival. Patient was given Zofran IV. She was given a liter normal saline fluid bolus followed by second liter. Urinalysis obtained was significant for nitrites as well as 50-100 WBCs and +4 bacteria. Urine was sent for culture. Patient given Rocephin 1 g IV. Patient will be given Pyridium. At this point she was able to tolerate p.o. fluids. Patient will be discharged home with diagnosis of UTI. I will start her on Bactrim and Pyridium. Patient also given a prescription for Zofran. Patient advised to return if persistent vomiting, dehydration, back pain, high fevers, or condition should worsen anyway. Lab Data Attestation: I reviewed the patient's lab results. Labs: Laboratory Results - last 24 hr 05/29/22 05/29/22 05/29/22 13:25 13:25 14:45 WBC 10.9 RBC 4.74 Hgb 14.0 Hct 42.0 MCV 88.6 MCH 29.5 MCHC 33.3 RDW Std Deviation 43.2 RDW Coeff of Hollie 13.2 Plt Count 81 L MPV 10.6 Immature Gran % (Auto) 1.300 H Neut % (Auto) 85.8 H Lymph % (Auto) 6.2 L [place] % (Auto) 6.4 Eos % (Auto) 0.0 Baso % (Auto) 0.3 Absolute Neuts (auto) 9.4 H Absolute Lymphs (auto) 0.68 L Nucleated RBC % 0 Platelet Estimate SLT DEC Sodium 136 Potassium 3.1 L Chloride 101 Carbon Dioxide 26.0 Anion Gap 9 BUN 15 Creatinine 1.19 H Estim Creat Clear Calc 37.28 Est GFR (MDRD) Af Amer 58 L Est GFR (MDRD) Non-Af 48 L BUN/Creatinine Ratio 12.6 Glucose 169 H Calcium 8.5 Total Bilirubin 1.70 H AST 17 ALT 23 Alkaline Phosphatase 128 H Troponin I High Sens 10 Total Protein 6.3 L Albumin 2.6 L Globulin 3.7 Albumin/Globulin Ratio 0.7 L Urine Color [place] Urine Clarity Cloudy Urine pH 6.0 Ur Specific [place] 1.015 Urine Protein 100 H Urine Glucose (UA) Normal Urine Ketones 5 H Urine Occult Blood 150 H Urine Nitrite Positive H Urine Bilirubin 1 H Urine Urobilinogen 4 H Ur Leukocyte Esterase 500 H Urine RBC 0-5 SEEN Urine WBC 50-100 SEEN Ur Squamous Epith Cells 0-5 SEEN Urine Bacteria 4+ Urine Mucus 0 SEEN EKG Initial EKG: Attestation: I personally reviewed and interpreted this EKG as follows: Comments: Sinus rhythm with a rate of 111 bpm with PVCs and nonspecific ST changes Discharge Plan Triage Chief Complaint: Nausea/Vomiting/Diarrhea Other Complaint: Complaint ED Provider: Gabino rBown Dx/Rx/DC Orders Clinical Impression: Vomiting, Acute UTI Instructions: Urinary Tract Infections in Women, ED Vomiting (Adult) Prescriptions: New phenazopyridine [Pyridium] 200 mg tablet 200 mg PO BID PRN PRN (Reason: Pain) Qty: 10 0RF sulfamethoxazole-trimethoprim [sulfamethoxazole-trimethoprim] 800-160 mg tablet 1 tab PO BID Qty: 14 0RF ondansetron [ondansetron] 4 mg tablet,disintegrating 4 mg PO Q8H PRN PRN (Reason: Nausea) Qty: 10 0RF No Action fluticasone propion-salmeterol [Advair Diskus] 250-50 mcg/dose blister with device 1 inh INHALATION BID vedolizumab 300 mg recon soln 300 mg .Route .every 2 months Rx Instructions: 300 mg .every 2 months; very 8 weeks pantoprazole 40 MG tablet 40 mg PO DAILY ergocalciferol (vitamin D2) 50,000 UNIT capsule 50,000 unit PO QWEEK venlafaxine 150 mg capsule,extended release 24hr 150 mg PO DAILY albuterol sulfate 1 INHALER inhaler 1 - 2 puff INHALATION Q4H PRN PRN (Reason: Wheezing) Qty: 1 0RF Symbicort 160-4.5 mcg/actuation HFA aerosol inhaler 2 inh INHALATION DIRECTED PRN (Reason: Sob &/Or Wheezing) (DME) Handicap Placard See Rx Instructions .Route .MEDSUPPLY Qty: 1 0RF Rx Instructions: expires 05/06/2026 amoxicillin 500 mg tablet 2,000 mg PO .COMPLEX Qty: 8 2RF Rx Instructions: 4 tablets by mouth 1 hr prior to procedure potassium chloride 20 mEq tablet extended release 20 meq PO DAILY Qty: 90 3RF metoprolol succinate [Toprol XL] 50 mg tablet extended release 24 hr 50 mg PO DAILY Qty: 90 3RF furosemide [Lasix] 40 mg tablet 40 mg PO DAILY Qty: 90 3RF Primary Care Provider: Charli Brasher Referrals: Charli Brasher MD [Primary Care Provider] - 3-5 Days Disposition Disposition: Home, Self Care
[2022-05-29 13:39] LABS: Absolute Lymphocyte Count 0.68 X10^3/uL (0.83-4.51); Absolute Neutrophil Count 9.4 X10^3/uL (2.0-7.7); Basophil# 0.03 X10^3/uL; Basophil% 0.3 % (0-1); Lymphocyte # 0.68 X10^3/ul (0.83-4.51); Lymphocyte % 6.2 % (19-41); Mean Corp Hgb Conc 33.3 g/dL (32-36); Mean Corpuscular Hgb 29.5 pg (27.0-32.0); Mean Corpuscular Volume 88.6 fL (81-99); Mean Platelet Vol. 10.6 fl (6.2-12.0); Monocyte% 6.4 % (0-10); NRBC Flagged by Analyzer 0 % (0-5); Neutrophil # 9.35 X10^3/uL (2.7-7.7); Neutrophil % 85.8 % (47-70); POSITIVE COUNT YES; Platelet Count 81 K/mm3 (150-450); RBC Distribution Width CV 13.2 % (11.6-14.6); RBC Distribution Width SD 43.2 fl (35.1-43.9); Red Blood Count 4.74 M/mm3 (4.2-5.4); White Blood Count 10.9 K/mm3 (4.4-11.0)
[2022-05-29 13:47] LABS: Differential Indicated SCAN CRITERIA MET
[2022-05-29 13:56] VITALS: BP 138/82; PULSE 102; RESP 16; O2SAT 95
[2022-05-29 13:57] LABS: ALB/GLOB Ratio 0.7 RATIO (0.9-2.4); AST(SGOT) 17 U/L (15-37); Alanine Aminotransfer ALT/SGPT 23 U/L (13-56); Albumin, Serum 2.6 g/dL (3.2-5.0); Alkaline Phosphatase 128 U/L (45-117); Anion Gap 9 (5-15); BUN 15 mg/dL (7-18); BUN/Creat Ratio 12.6 RATIO (10-20); Calcium,Total 8.5 mg/dL (8.5-10.1); Chloride 101 mmol/L (98-107); Creatinine, Serum 1.19 mg/dL (0.55-1.02); EST Glomerular Filtration Rate 48 mL/min (>60); Est Glom Filt Rate - Afr Amer 58 mL/min (>60); Estimated Creatinine Clearance 37.28 ml/min; Globulin 3.7 g/dL (2.2-4.2); Glucose 169 mg/dL (74-106); Potassium 3.1 mmol/L (3.5-5.1); Protein, Total 6.3 g/dL (6.4-8.2); Sodium Level 136 mmol/L (136-145); Troponin-I HS 10 pg/mL (3.0-54.0)
[2022-05-29] MEDS: Ondansetron 4 MG/2 ML Vial IV (14:02)
[2022-05-29] MEDS: 0.9% Normal Saline 1,000 ML 1000 ML IV (14:02)
[2022-05-29 14:18] LABS: Platelet Estimate SLT DEC (ADEQ)
[2022-05-29 14:56] LABS: Mucous, Urine 0 SEEN /hpf (<or=2+)
[2022-05-29 15:00] VITALS: RESP 18
[2022-05-29 15:02] LABS: Color, Urine Amber (Yellow); Glucose, Dipstick Normal (Normal); Ketone-Dipstick 5 mg/dl (Negative); Leukocyte Esterase-Dipstick 500 /ul (Negative); Nitrite-Dipstick Positive (Negative); Occult Blood-Urine 150 /ul (Negative); Protein-Dipstick 100 mg/dl (Negative); Specific Gravity, Urine 1.015 (1.002-1.030); Urine Clarity Cloudy (Clear); Urine Urobilinogen 4 mg/dl (Normal)
[2022-05-29 15:04] LABS: Urine Bilirubin Dipstick 1 mg/dL (Negative)
[2022-05-29 15:07] LABS: White Blood Cells 50-100 SEEN /hpf (0-5)
[2022-05-29 15:09] LABS: Bacteria 4+ /hpf (None Seen); Red Blood Cells-Urine 0-5 SEEN /hpf (0-5); Squamous Epithelial Cells - UA 0-5 SEEN /hpf (5-10)
[2022-05-29 15:19] VITALS: RESP 16
[2022-05-29] MEDS: Ceftriaxone 1 GM/50 ML BAG IV (15:25)
== END 2022-05-29 15:59 | disposition home or self-care (01) ==
PROVIDERS: Emergency Provider Emergency Medicine; PCP Family Medicine; Visit Provider Emergency Medicine
DX: N39.0 Urinary tract infection, site not specified (principal)
CPT/HCPCS: 80053; 81001; 84484; 85025; 87077; 87086; 87088; 87186; 93005; 96365; 96375; 99283; J7030; A4216; J2405

== ENCOUNTER 2022-05-31 19:36 | Emergency (ER) | payer MEDICARE, OTHER, SELFPAY ==
[2021-02-12 08:21] VITALS: BMI 46.4
[2022-05-31 19:36] VITALS: BP 137/74; PULSE 74; RESP 16; TEMP 36.6; O2SAT 99; BMI 45.7
--- NOTE | 2022-05-31 20:09 | CT_ITS ---
EXAM: CT abdomen and pelvis with contrast. HISTORY: Diarrhea TECHNIQUE: CT Abdomen And Pelvis W/ Contrast Injection. A radiation dose optimization technique was used for this scan. COMPARISON: CT of abdomen and pelvis from February 22, 2020. LIMITATIONS: None. LOWER CHEST: Mild linear atelectasis in the lung bases bilaterally. LIVER: Subcentimeter probable cyst in the right lobe near the dome, stable in size. GALLBLADDER: Removed. BILE DUCTS: Normal. PANCREAS: Normal. SPLEEN: Mildly enlarged, increased from the prior exam.. ADRENAL GLANDS: Normal. KIDNEYS/URETERS/BLADDER: Mild bilateral perinephric stranding is nonspecific, but new since the prior exam. Subtle region of decreased cortical enhancement within the left kidney at the lower pole, new from the prior. No hydronephrosis. Mild wall thickening of the bladder could be secondary to underdistention. AORTA: Normal caliber. BOWEL/MESENTERY: No evidence of acute colitis. No small bowel obstruction. APPENDIX: Normal. PERITONEUM: Normal. REPRODUCTIVE ORGANS: Normal. BONES/SOFT TISSUES: No acute fracture. OTHER: None. CONCLUSION: 1. Mild bilateral perinephric fat stranding is nonspecific, but new since the prior exam. Subtle region of decreased cortical enhancement at the lower pole of the left kidney. This could be artifactual; however, pyelonephritis is a consideration in the appropriate clinical setting. 2. Mild splenomegaly is new since the prior study. 3. No evidence of colitis. Electronically Signed: Moreno Shah MD at 21:58 EDT , CT/Abdomen/Pelvis W IV Cont ONLY IMPRESSION: undefined
--- NOTE | 2022-05-31 20:11 | EDS_ITS ---
HPI HPI - GI History of Present Illness Chief Complaint: Nausea/Vomiting Narrative Narrative: Patient with past medical history of ulcerative colitis, has had nausea, vomiting, and diarrhea since Thursday, 5 days ago. She states she was in the emergency department 3 days ago and diagnosed with a UTI and dehydration. She received 2 bags of normal saline and IV antibiotics for a UTI. She was sent home with Zofran and Bactrim. She states that the Bactrim gave her diarrhea, and she denies any abdominal pain but states that she has had 2 episodes in the last 24-hour and vomited a few times in the last 24 hours without any blood in her emesis. She feels generally weak and dehydrated. She states she cannot take her medication for her UTI. She has had subjective fever, stating that her temperature usually runs 97.4, and it was a degree higher so it is a fever for her. No exacerbating or alleviating factors. She presents to the emergency department for reevaluation of her generalized weakness, nausea, vomiting, and diarrhea. [facility] Medical History Asthma Depression Essential (primary) hypertension Nonrheumatic mitral (valve) insufficiency Nonrheumatic mitral valve prolapse Obesity Paroxysmal atrial tachycardia Pericardial effusion (11/09/20) Ulcerative colitis Home Medications pantoprazole 40 mg tablet,delayed release 40 mg PO DAILY 03/05/16 [History Last Taken 07/23/20] albuterol sulfate 90 mcg/actuation aerosol inhaler 1 - 2 puff inhalation Q4H PRN PRN Wheezing ##1 04/15/17 [Rx Last Taken Unknown] ergocalciferol (vitamin D2) 1,250 mcg (50,000 unit) capsule 50,000 unit PO QWEEK 08/05/17 [History Last Taken Unknown] budesonide-formoterol HFA 160 mcg-4.5 mcg/actuation aerosol inhaler (Symbicort) 2 inh inhalation DIRECTED PRN Sob &/Or Wheezing 06/28/19 [History Last Taken Unknown] fluticasone 250 mcg-salmeterol 50 mcg/dose blistr powdr for inhalation (Advair Diskus) 1 inh inhalation BID 06/28/19 [History Last Taken Unknown] Handicap Placard #1 ea 05/06/21 [Rx Last Taken Unknown] vedolizumab 300 mg intravenous solution 300 mg .Route .every 2 months 05/21/21 [History Last Taken Unknown] venlafaxine 150 mg capsule,extended release 24 hr 150 mg PO DAILY 05/21/21 [History Last Taken Unknown] amoxicillin 500 mg tablet 2,000 mg PO .COMPLEX #8 tabs 09/03/21 [Rx Last Taken Unknown] potassium chloride 20 mEq tablet,extended release 20 meq PO DAILY #90 tabs 12/11/21 [Rx Last Taken Unknown] furosemide 40 mg tablet (Lasix) 40 mg PO DAILY #90 tabs 05/27/22 [Rx Last Taken Unknown] metoprolol succinate 50 mg tablet,extended release 24 hr (Toprol XL) 50 mg PO DAILY #90 tabs 05/27/22 [Rx Last Taken Unknown] ondansetron 4 mg disintegrating tablet 4 mg PO Q8H PRN PRN Nausea #10 tabs 05/29/22 [Rx Last Taken Unknown] phenazopyridine 200 mg tablet (Pyridium) 200 mg PO BID PRN PRN Pain #10 tabs 05/29/22 [Rx Last Taken Unknown] sulfamethoxazole 800 mg-trimethoprim 160 mg tablet 1 tab PO BID #14 TABLETS 05/29/22 [Rx Last Taken Unknown] cephalexin 500 mg capsule 500 mg PO Q12 #14 caps 05/31/22 [Rx Last Taken Unknown] ondansetron 4 mg disintegrating tablet 4 mg PO Q6H PRN nausea and vomiting #14 tabs 05/31/22 [Rx Last Taken Unknown] Allergy/AdvReac Type Severity Reaction Status Date / Time lisinopril AdvReac cough Verified 05/31/22 19:49 Family History Father CAD (coronary artery disease) Hypertension Diabetes Mother CAD (coronary artery disease) Hypertension Sister Diabetes Surgical History excision of tumor from lower spine (04/2016) History of colonoscopy (12/2019) History of esophagogastroduodenoscopy (EGD) (12/2019) History of left heart catheterization (07/23/20) History of mitral valve repair (10/08/20) Hx of cholecystectomy Social History Smoking Status: Never smoker ROS ROS ED ROS Narrative Constitutional: Subjective fever, no chills. Generalized weakness. HEENT: No sore throat. No neck pain. No loss of vision. No rhinorrhea. Cardiovascular: No chest pain. No palpitations. No pedal edema. Respiratory: No cough, no shortness of breath. Abdominal: No abdominal pain. Positive nausea. Positive vomiting. No hematemesis. Positive diarrhea, few episodes in the last 24 hours. Genitourinary: No dysuria. No hematuria. Musculoskeletal: No myalgias. No arthralgias. Neurologic: No headaches. No dizziness. No lightheadedness. Skin: No rash. No change in color. Psychiatric: No depression. No anxiety. EXAM Physical Exam Narrative Exam Narrative: Afebrile. Vital signs noted. HEENT: Normocephalic. Atraumatic. PERRL, EOMI. Neck soft and supple. No point tenderness or step off. Cardiovascular: Regular rate and rhythm. No murmurs, rubs, or gallops appreciated. Respiratory: No tachypnea. Lungs clear to auscultation bilaterally. Gastrointestinal: Abdomen soft, nontender, with normoactive bowel sounds. No rebound or guarding. Neurological: Awake. Alert. Nonfocal, nonlateralizing. Skin: No rash. Normal color. No pallor. Musculoskeletal: No pedal edema. Full range of motion extremities. Const Vital Signs: 05/31/22 19:36 05/31/22 22:06 05/31/22 22:13 Temperature 97.8 F 98.9 F 98.9 F Temperature Source Temporal Oral Pulse Rate 74 93 88 Respiratory Rate 16 19 H 19 H Blood Pressure 137/74 H 126/70 H 126/70 H Blood Pressure Mean 95 88 Pulse Ox 99 98 97 Oxygen Delivery Method Room Air Room Air MDM MDM MDM Narrative Medical decision making narrative: Comprehensive work-up was pursued. I will repeat her urinalysis to see if her. Insofar as her nausea and vomiting, I will obtain a CBC, CMP, and lipase. Given that she has had diarrhea and history of ulcerative colitis, I do feel CT imaging is indicated. She will be bolused normal saline 1 L intravenously. She will also be given IV Zofran. Patient has normal white count of 4.4, hemoglobin 13.2, hematocrit 40.4 with thrombocytopenia with platelet count of 72. She did have thrombocytopenia on her last laboratory examination. CMP shows hypokalemia of 3.2 which was replaced orally. She states she is supposed to be taking this at home. Glucose appropriately elevated at 111, with a normal anion gap of 9. Creatinine 1.0 with a BUN of 9, no evidence of dehydration. I repeated her urinalysis which is positive for nitrites but WBC count has gone down to 0-5 with rare bacteria. This is improved from previous. She states that she cannot take the Bactrim that was prescribed to her because it was giving her diarrhea. CT of the abdomen and pelvis was obtained which showed no evidence of colitis. There was possible artifact and nonspecific fat stranding. Her examination is not consistent with pyelonephritis. I reviewed her urine cultures and sensitivities from 2 days ago and it is sensitive to all antibiotics. As she is only taken a few of the Bactrim, I wrote her prescription for cephalexin which she has tolerated well in the past. Additionally, she was given a prescription for Zofran for nausea which I think may also be a side effect from antibiotic use. At this point in time, I feel she can be discharged safely home with follow-up to her primary care physician. She will also follow-up for her thrombocytopenia. Return instructions to the emergency department were reviewed. Disposition is discharged home in stable condition. Lab Data Attestation: I reviewed the patient's lab results. Labs: Laboratory Results - last 24 hr 05/31/22 05/31/22 05/31/22 20:17 20:17 20:18 WBC 4.4 RBC 4.56 Hgb 13.2 Hct 40.4 MCV 88.6 MCH 28.9 MCHC 32.7 RDW Std Deviation 43.5 RDW Coeff of Hollie 13.3 Plt Count 72 L MPV 11.8 Immature Gran % (Auto) 0.700 Neut % (Auto) 73.8 H Lymph % (Auto) 14.5 L [place] % (Auto) 10.3 H Eos % (Auto) 0.5 Baso % (Auto) 0.2 Absolute Neuts (auto) 3.2 Absolute Lymphs (auto) 0.63 L Nucleated RBC % 0 Differential Comment SCANNED Sodium 137 Potassium 3.2 L Chloride 102 Carbon Dioxide 26.0 Anion Gap 9 BUN 9 Creatinine 1.05 H Estim Creat Clear Calc 42.25 Est GFR (MDRD) Af Amer 68 Est GFR (MDRD) Non-Af 56 L BUN/Creatinine Ratio 8.6 L Glucose 111 H Calcium 8.4 L Total Bilirubin 0.50 AST 16 ALT 19 Alkaline Phosphatase 109 Total Protein 5.9 L Albumin 2.2 L Globulin 3.7 Albumin/Globulin Ratio 0.6 L Lipase 55 L Urine Color Yellow Urine Clarity Clear Urine pH 5.0 Ur Specific [place] 1.010 Urine Protein 30 H Urine Glucose (UA) Normal Urine Ketones 5 H Urine Occult Blood 50 H Urine Nitrite Positive H Urine Bilirubin 1 H Urine Urobilinogen 1 H Ur Leukocyte Esterase 100 H Urine RBC 0 SEEN Urine WBC 0-5 SEEN Ur Squamous Epith Cells 0-5 SEEN Urine Bacteria RARE Urine Mucus 0 SEEN Radiography Diagnostic Testing: Clinical Impression(s) from Imaging Studies Abdomen/Pelvis CT 05/31/22 20:09 IMPRESSION: undefined Discharge Plan Triage Chief Complaint: Nausea/Vomiting ED Provider: Daniel Marmolejo Dx/Rx/DC Orders Clinical Impression: Nausea vomiting and diarrhea, Hypokalemia, UTI (urinary tract infection) Instructions: ED Hypokalemia, ED Cystitis Female Adult, ED Vomiting and Diarrhea ... Prescriptions: New cephalexin 500 mg capsule 500 mg PO Q12 Qty: 14 0RF ondansetron 4 mg tablet,disintegrating 4 mg PO Q6H PRN (Reason: nausea and vomiting) Qty: 14 0RF No Action fluticasone propion-salmeterol [Advair Diskus] 250-50 mcg/dose blister with device 1 inh INHALATION BID vedolizumab 300 mg recon soln 300 mg .Route .every 2 months Rx Instructions: 300 mg .every 2 months; very 8 weeks pantoprazole 40 MG tablet 40 mg PO DAILY ergocalciferol (vitamin D2) 50,000 UNIT capsule 50,000 unit PO QWEEK venlafaxine 150 mg capsule,extended release 24hr 150 mg PO DAILY albuterol sulfate 1 INHALER inhaler 1 - 2 puff INHALATION Q4H PRN PRN (Reason: Wheezing) Qty: 1 0RF phenazopyridine [Pyridium] 200 mg tablet 200 mg PO BID PRN PRN (Reason: Pain) Qty: 10 0RF sulfamethoxazole-trimethoprim [sulfamethoxazole-trimethoprim] 800-160 mg tablet 1 tab PO BID Qty: 14 0RF ondansetron [ondansetron] 4 mg tablet,disintegrating 4 mg PO Q8H PRN PRN (Reason: Nausea) Qty: 10 0RF Symbicort 160-4.5 mcg/actuation HFA aerosol inhaler 2 inh INHALATION DIRECTED PRN (Reason: Sob &/Or Wheezing) (DME) Handicap Placard See Rx Instructions .Route .MEDSUPPLY Qty: 1 0RF Rx Instructions: expires 05/06/2026 amoxicillin 500 mg tablet 2,000 mg PO .COMPLEX Qty: 8 2RF Rx Instructions: 4 tablets by mouth 1 hr prior to procedure potassium chloride 20 mEq tablet extended release 20 meq PO DAILY Qty: 90 3RF metoprolol succinate [Toprol XL] 50 mg tablet extended release 24 hr 50 mg PO DAILY Qty: 90 3RF furosemide [Lasix] 40 mg tablet 40 mg PO DAILY Qty: 90 3RF Primary Care Provider: Charli Brasher Referrals: Charli Brasher MD [Primary Care Provider] - 3-5 Days if not improving Disposition Disposition: Home, Self Care
[2022-05-31] MEDS: 0.9% Normal Saline 1,000 ML 1000 ML IV (20:21)
[2022-05-31] MEDS: Ondansetron 4 MG/2 ML Vial IV (20:23)
[2022-05-31 20:25] LABS: Mucous, Urine 0 SEEN /hpf (<or=2+); Red Blood Cells-Urine 0 SEEN /hpf (0-5)
[2022-05-31 20:33] LABS: Absolute Lymphocyte Count 0.63 X10^3/uL (0.83-4.51); Absolute Neutrophil Count 3.2 X10^3/uL (2.0-7.7); Basophil# 0.01 X10^3/uL; Basophil% 0.2 % (0-1); Eosinophil# 0.02 X10^3/uL; Eosinophils% 0.5 % (0-5); Hematocrit 40.4 % (37-47); Hemoglobin 13.2 g/dL (12.0-15.0); Lymphocyte # 0.63 X10^3/ul (0.83-4.51); Lymphocyte % 14.5 % (19-41); Mean Corp Hgb Conc 32.7 g/dL (32-36); Mean Corpuscular Hgb 28.9 pg (27.0-32.0); Mean Corpuscular Volume 88.6 fL (81-99); Mean Platelet Vol. 11.8 fl (6.2-12.0); Monocyte# 0.45 X10^3/uL; Monocyte% 10.3 % (0-10); NRBC Flagged by Analyzer 0 % (0-5); Neutrophil # 3.21 X10^3/uL (2.7-7.7); Neutrophil % 73.8 % (47-70); POSITIVE COUNT YES; Platelet Count 72 K/mm3 (150-450); RBC Distribution Width CV 13.3 % (11.6-14.6); RBC Distribution Width SD 43.5 fl (35.1-43.9); Red Blood Count 4.56 M/mm3 (4.2-5.4); White Blood Count 4.4 K/mm3 (4.4-11.0)
[2022-05-31 20:35] LABS: Differential Indicated SCAN CRITERIA MET
[2022-05-31 20:42] LABS: Color, Urine Yellow (Yellow); Glucose, Dipstick Normal (Normal); Ketone-Dipstick 5 mg/dl (Negative); Leukocyte Esterase-Dipstick 100 /ul (Negative); Nitrite-Dipstick Positive (Negative); Occult Blood-Urine 50 /ul (Negative); Protein-Dipstick 30 mg/dl (Negative); Urine Clarity Clear (Clear); Urine Urobilinogen 1 mg/dl (Normal)
[2022-05-31 20:46] LABS: Urine Bilirubin Dipstick 1 mg/dL (Negative)
[2022-05-31 20:53] LABS: ALB/GLOB Ratio 0.6 RATIO (0.9-2.4); AST(SGOT) 16 U/L (15-37); Alanine Aminotransfer ALT/SGPT 19 U/L (13-56); Albumin, Serum 2.2 g/dL (3.2-5.0); Alkaline Phosphatase 109 U/L (45-117); Anion Gap 9 (5-15); BUN 9 mg/dL (7-18); BUN/Creat Ratio 8.6 RATIO (10-20); Calcium,Total 8.4 mg/dL (8.5-10.1); Chloride 102 mmol/L (98-107); Creatinine, Serum 1.05 mg/dL (0.55-1.02); EST Glomerular Filtration Rate 56 mL/min (>60); Est Glom Filt Rate - Afr Amer 68 mL/min (>60); Estimated Creatinine Clearance 42.25 ml/min; Globulin 3.7 g/dL (2.2-4.2); Glucose 111 mg/dL (74-106); Lipase 55 U/L (73-393); Potassium 3.2 mmol/L (3.5-5.1); Protein, Total 5.9 g/dL (6.4-8.2); Sodium Level 137 mmol/L (136-145)
[2022-05-31 20:55] LABS: Bacteria RARE /hpf (None Seen); Squamous Epithelial Cells - UA 0-5 SEEN /hpf (5-10); White Blood Cells 0-5 SEEN /hpf (0-5)
[2022-05-31 21:00] LABS: Differential Comment SCANNED
[2022-05-31 22:06] VITALS: BP 126/70; PULSE 93; RESP 19; TEMP 37.2; O2SAT 98
[2022-05-31 22:13] VITALS: BP 126/70; PULSE 88; RESP 19; TEMP 37.2; O2SAT 97
[2022-05-31] MEDS: Potassium Chloride Oral Tablet 20 MEQ 40 MEQ PO (22:15)
== END 2022-05-31 23:23 | disposition home or self-care (01) ==
PROVIDERS: Emergency Provider Emergency Medicine; PCP Family Medicine; Visit Provider Emergency Medicine
DX: R11.2 Nausea with vomiting, unspecified (principal); R19.7 Diarrhea, unspecified; N39.0 Urinary tract infection, site not specified; E87.6 Hypokalemia; I10 Essential (primary) hypertension; Z90.49 Acquired absence of other specified parts of digestive tract; Z79.899 Other long term (current) drug therapy
CPT/HCPCS: 74177; 80053; 81001; 83690; 85025; 96361; 96374; 99284; Q9967; A4216; J2405

== ENCOUNTER 2022-06-21 11:50 | Emergency (ER) | payer MEDICARE, OTHER, SELFPAY ==
[2021-02-12 08:21] VITALS: BMI 46.4
[2022-06-21 11:51] VITALS: BP 127/87; PULSE 75; RESP 18; TEMP 36.5; O2SAT 98; BMI 45.7
--- NOTE | 2022-06-21 12:09 | ED.VIS.FALL ---
HPI HPI - Fall History of Present Illness Chief Complaint: Fall Narrative Narrative: Patient sustained mechanical fall off 1 step yesterday she hit the right side of her anterior ribs. No head injury no neck pain no loss consciousness she is presenting with right chest wall pain. No abdominal pain no back pain or any other extremity injuries [facility] Medical History Asthma Depression Essential (primary) hypertension Nonrheumatic mitral (valve) insufficiency Nonrheumatic mitral valve prolapse Obesity Paroxysmal atrial tachycardia Pericardial effusion (11/09/20) Ulcerative colitis Home Medications pantoprazole 40 mg tablet,delayed release 40 mg PO DAILY 03/05/16 [History Last Taken 07/23/20] albuterol sulfate 90 mcg/actuation aerosol inhaler 1 - 2 puff inhalation Q4H PRN PRN Wheezing ##1 04/15/17 [Rx Last Taken Unknown] ergocalciferol (vitamin D2) 1,250 mcg (50,000 unit) capsule 50,000 unit PO QWEEK 08/05/17 [History Last Taken Unknown] budesonide-formoterol HFA 160 mcg-4.5 mcg/actuation aerosol inhaler (Symbicort) 2 inh inhalation DIRECTED PRN Sob &/Or Wheezing 06/28/19 [History Last Taken Unknown] fluticasone 250 mcg-salmeterol 50 mcg/dose blistr powdr for inhalation (Advair Diskus) 1 inh inhalation BID 06/28/19 [History Last Taken Unknown] Handicap Placard #1 ea 05/06/21 [Rx Last Taken Unknown] vedolizumab 300 mg intravenous solution 300 mg .Route .every 2 months 05/21/21 [History Last Taken Unknown] venlafaxine 150 mg capsule,extended release 24 hr 150 mg PO DAILY 05/21/21 [History Last Taken Unknown] amoxicillin 500 mg tablet 2,000 mg PO .COMPLEX #8 tabs 09/03/21 [Rx Last Taken Unknown] potassium chloride 20 mEq tablet,extended release 20 meq PO DAILY #90 tabs 12/11/21 [Rx Last Taken Unknown] furosemide 40 mg tablet (Lasix) 40 mg PO DAILY #90 tabs 05/27/22 [Rx Last Taken Unknown] metoprolol succinate 50 mg tablet,extended release 24 hr (Toprol XL) 50 mg PO DAILY #90 tabs 05/27/22 [Rx Last Taken Unknown] ondansetron 4 mg disintegrating tablet 4 mg PO Q8H PRN PRN Nausea #10 tabs 05/29/22 [Rx Last Taken Unknown] phenazopyridine 200 mg tablet (Pyridium) 200 mg PO BID PRN PRN Pain #10 tabs 05/29/22 [Rx Last Taken Unknown] sulfamethoxazole 800 mg-trimethoprim 160 mg tablet 1 tab PO BID #14 TABLETS 05/29/22 [Rx Last Taken Unknown] cephalexin 500 mg capsule 500 mg PO Q12 #14 caps 05/31/22 [Rx Last Taken Unknown] ondansetron 4 mg disintegrating tablet 4 mg PO Q6H PRN nausea and vomiting #14 tabs 05/31/22 [Rx Last Taken Unknown] hydrocodone-acetaminophen 5-325mg 5mg-325mg 1 tab PO Q8H PRN pain 3 days #10 tabs 06/21/22 [Rx Last Taken Unknown] Allergy/AdvReac Type Severity Reaction Status Date / Time lisinopril AdvReac cough Verified 05/31/22 19:49 Family History Father CAD (coronary artery disease) Hypertension Diabetes Mother CAD (coronary artery disease) Hypertension Sister Diabetes Surgical History excision of tumor from lower spine (04/2016) History of colonoscopy (12/2019) History of esophagogastroduodenoscopy (EGD) (12/2019) History of left heart catheterization (07/23/20) History of mitral valve repair (10/08/20) Hx of cholecystectomy Social History Smoking Status: Never smoker ROS ROS ED ROS Narrative Social: Noncontributory Medications: Reviewed Past medical history: Reviewed Review of systems General: Patient has no head injury or loss of consciousness HEENT: No facial injury Neck: No neck pain Cardiovascular: Patient denies any chest pain or palpitations Chest wall: Right anterior chest wall contusion as in HPI Respiratory: There is no shortness of breath GI: There is no nausea vomiting diarrhea or abdominal pain, no abdominal wall contusions Skin: No lacerations or abrasions Neurological: Patient has no memory loss, confusion, or any focal weakness Psychiatric: No recent behavioral changes Back: No back pain, no problems with ambulation Musculoskeletal: No extremity injury All other systems are reviewed and normal EXAM Physical Exam Narrative Exam Narrative: Physical exam Vitals reviewed General: Patient appears relatively comfortable in bed. HEENT: No facial injury Head: No head injury Eyes: Extraocular movements intact Neck: No C-spine tenderness with full range of motion Heart: Regular rate normal pulses Chest wall: Right anterior chest wall pain right under her right rib. No contusion in that area no step-offs. Lungs: Clear lungs bilaterally with normal inspiration and expiration without tachypnea GI: Abdomen is soft and nontender there is no mass no guarding no abdominal wall contusion : Stable pelvis Musculoskeletal: Moves all extremities without any signs of trauma Skin: No abrasions or laceration Neurological: Patient is alert and oriented with no focal deficits Const Vital Signs: 06/21/22 11:51 06/21/22 12:39 Temperature 97.7 F L Temperature Source Temporal Pulse Rate 75 Respiratory Rate 18 Respiratory Effort Normal Non-Labored Blood Pressure 127/87 H Blood Pressure Mean 100 Pulse Ox 98 Oxygen Delivery Method Room Air Room Air MDM MDM Radiography Diagnostic Testing: Clinical Impression(s) from Imaging Studies Ribs w/Chest X-Ray 06/21/22 12:16 IMPRESSION: RIBS: Prior fracture right rib 9. No visualized acute fracture. Degenerative change in the thoracolumbar spine. Postoperative changes right upper quadrant Status post sternotomy. Stable Bilateral osteochondral bodies within the shoulders and/or joint bodies. CHEST: No visualized acute focal infiltrate. Electronically Signed: Iesha Cohn MD at 12:34 EDT , Chest x-ray read by me and radiologist as no acute fracture. Treatment and Re-Evaluation Narrative: Patient has a normal chest x-ray will discharge with analgesia. Discharge Plan Triage Chief Complaint: Fall ED Provider: Pratik Mendoza Dx/Rx/DC Orders Clinical Impression: Fall, Contusion of rib Instructions: ED Bruise, Rib Prescriptions: New hydrocodone-acetaminophen 5-325 mg tablet 1 tab PO Q8H PRN (Reason: pain) 3 Days Qty: 10 0RF No Action fluticasone propion-salmeterol [Advair Diskus] 250-50 mcg/dose blister with device 1 inh INHALATION BID vedolizumab 300 mg recon soln 300 mg .Route .every 2 months Rx Instructions: 300 mg .every 2 months; very 8 weeks pantoprazole 40 MG tablet 40 mg PO DAILY ergocalciferol (vitamin D2) 50,000 UNIT capsule 50,000 unit PO QWEEK venlafaxine 150 mg capsule,extended release 24hr 150 mg PO DAILY albuterol sulfate 1 INHALER inhaler 1 - 2 puff INHALATION Q4H PRN PRN (Reason: Wheezing) Qty: 1 0RF phenazopyridine [Pyridium] 200 mg tablet 200 mg PO BID PRN PRN (Reason: Pain) Qty: 10 0RF sulfamethoxazole-trimethoprim [sulfamethoxazole-trimethoprim] 800-160 mg tablet 1 tab PO BID Qty: 14 0RF ondansetron [ondansetron] 4 mg tablet,disintegrating 4 mg PO Q8H PRN PRN (Reason: Nausea) Qty: 10 0RF cephalexin 500 mg capsule 500 mg PO Q12 Qty: 14 0RF ondansetron 4 mg tablet,disintegrating 4 mg PO Q6H PRN (Reason: nausea and vomiting) Qty: 14 0RF Symbicort 160-4.5 mcg/actuation HFA aerosol inhaler 2 inh INHALATION DIRECTED PRN (Reason: Sob &/Or Wheezing) (DME) Handicap Placard See Rx Instructions .Route .MEDSUPPLY Qty: 1 0RF Rx Instructions: expires 05/06/2026 amoxicillin 500 mg tablet 2,000 mg PO .COMPLEX Qty: 8 2RF Rx Instructions: 4 tablets by mouth 1 hr prior to procedure potassium chloride 20 mEq tablet extended release 20 meq PO DAILY Qty: 90 3RF metoprolol succinate [Toprol XL] 50 mg tablet extended release 24 hr 50 mg PO DAILY Qty: 90 3RF furosemide [Lasix] 40 mg tablet 40 mg PO DAILY Qty: 90 3RF Primary Care Provider: Charli Brasher Referrals: Charli Brasher MD [Primary Care Provider] - 2 Days Disposition Disposition: Home, Self Care
--- NOTE | 2022-06-21 12:16 | RAD_ITS ---
STUDY: X-RAY - UNILATERAL RIBS ( RIGHT ) WITH CHEST REASON FOR EXAM: Female, 66 years old. Trauma TECHNIQUE - RIBS: 4 view(s) of the ribs. TECHNIQUE - CHEST: Single PA view of the chest. COMPARISON: Chest x-ray October 30, 2020 FINDINGS - RIBS: The prior fracture injury of right ribs 9 seen on the prior studies. FINDINGS - CHEST: The lungs are clear and expanded. There is no demonstrated pleural abnormality. Sternal cerclage wires are present from a prior sternotomy. There is a partially visualized valvular ring. There is mild cardiac enlargement. Normal mediastinum and kati. Normal visualized pulmonary arteries. Normal visualized aortic arch and descending thoracic aorta. There are diffuse degenerative changes of the visualized thoracic spine. Is visualized degenerative change in the bilateral shoulder joints. Visualized calcific density projected over the right shoulder suggesting persistent osteochondral body. This is also seen on the left side of the shoulder on a prior study October 30, 2020. Postoperative changes right upper quadrant. RAD/Ribs Uni Min 3V w/PA Chest IMPRESSION: RIBS: Prior fracture right rib 9. No visualized acute fracture. Degenerative change in the thoracolumbar spine. Postoperative changes right upper quadrant Status post sternotomy. Stable Bilateral osteochondral bodies within the shoulders and/or joint bodies. CHEST: No visualized acute focal infiltrate. Electronically Signed: Iesha Cohn MD at 12:34 EDT ,
[2022-06-21] MEDS: oxyCODONE 5 MG Tablet PO (12:37)
== END 2022-06-21 13:15 | disposition home or self-care (01) ==
PROVIDERS: Emergency Provider Emergency Medicine; PCP Family Medicine; Visit Provider Emergency Medicine
DX: S20.211A Contusion of right front wall of thorax, initial encounter (principal); Z68.42 Body mass index [BMI] 45.0-49.9, adult; W10.9XXA Fall (on) (from) unspecified stairs and steps, initial encounter; I10 Essential (primary) hypertension; E66.9 Obesity, unspecified; Z79.899 Other long term (current) drug therapy
CPT/HCPCS: 71101; 99283

== ENCOUNTER → 2022-06-26 | Outpatient (CLI) | payer MEDICARE, OTHER, SELFPAY ==
[2021-02-12 08:21] VITALS: BMI 46.4
== END | disposition home or self-care (01) ==
LOC: SL 20:12
PROVIDERS: PCP Family Medicine; Referring Provider Physician Assistant; Visit Provider Physician Assistant
DX: G47.33 Obstructive sleep apnea (adult) (pediatric) (principal)
CPT/HCPCS: 95810

== ENCOUNTER → 2022-07-23 | Outpatient (CLI) | payer MEDICARE, OTHER, SELFPAY ==
[2021-02-12 08:21] VITALS: BMI 46.4
== END | disposition home or self-care (01) ==
PROVIDERS: PCP Family Medicine
DX: G47.33 Obstructive sleep apnea (adult) (pediatric) (principal)
CPT/HCPCS: 95811

== ENCOUNTER → 2023-07-03 | Outpatient (CLI) | payer MEDICARE, OTHER, SELFPAY ==
[2021-02-12 08:21] VITALS: BMI 46.4
[2023-07-03 17:07] LABS: Absolute Lymphocyte Count 2.68 X10^3/uL (0.83-4.51); Absolute Neutrophil Count 4.1 X10^3/uL (2.0-7.7); Basophil# 0.04 X10^3/uL; Basophil% 0.5 % (0-1); Eosinophil# 0.18 X10^3/uL; Eosinophils% 2.3 % (0-5); Hematocrit 43.7 % (37-47); Lymphocyte # 2.68 X10^3/ul (0.83-4.51); Mean Corpuscular Hgb 29.6 pg (27.0-32.0); Mean Corpuscular Volume 92.4 fL (81-99); Monocyte% 7.8 % (0-10); NRBC Flagged by Analyzer 0 % (0-5); Neutrophil # 4.14 X10^3/uL (2.7-7.7); Neutrophil % 54.1 % (47-70); Platelet Count 180 K/mm3 (150-450); RBC Distribution Width CV 12.9 % (11.6-14.6); RBC Distribution Width SD 43.8 fl (35.1-43.9); Red Blood Count 4.73 M/mm3 (4.2-5.4); White Blood Count 7.7 K/mm3 (4.4-11.0)
[2023-07-03 17:27] LABS: BNP,B-Type NATRIURETIC PEPTIDE 66.1 pg/mL (0-100)
[2023-07-03 17:29] LABS: ALB/GLOB Ratio 1.1 RATIO (0.9-2.4); AST(SGOT) 17 U/L (15-37); Alanine Aminotransfer ALT/SGPT 19 U/L (13-56); Albumin, Serum 3.3 g/dL (3.2-5.0); Alkaline Phosphatase 98 U/L (45-117); Anion Gap 2 (5-15); BUN 17 mg/dL (7-18); BUN/Creat Ratio 16.5 RATIO (10-20); Calcium,Total 8.7 mg/dL (8.5-10.1); Chloride 108 mmol/L (98-107); Creatinine, Serum 1.03 mg/dL (0.55-1.02); EST Glomerular Filtration Rate 57 mL/min (>60); Est Glom Filt Rate - Afr Amer 69 mL/min (>60); Glucose 104 mg/dL (74-106); Protein, Total 6.3 g/dL (6.4-8.2); Sodium Level 139 mmol/L (136-145)
== END | disposition home or self-care (01) ==
LOC: LAB 15:36
PROVIDERS: PCP Family Medicine; Referring Provider Nurse Practitioner Family; Visit Provider Nurse Practitioner Family
DX: R06.09 Other forms of dyspnea (principal); I10 Essential (primary) hypertension; Z98.890 Other specified postprocedural states
CPT/HCPCS: 36415; 80053; 83880; 85025

== ENCOUNTER → 2023-07-28 | Outpatient (CLI) | payer MEDICARE, OTHER, SELFPAY ==
[2021-02-12 08:21] VITALS: BMI 46.4
--- NOTE | 2023-07-28 10:31 | ECHOD_ITS ---
Reason For Study: MV REPAIR Procedure This was a 2D Doppler, Color Flow transthoracic echocardiogram. Exam performed in department. Left Ventricle Normal LV size. Left ventricular systolic function is normal. The estimated ejection fraction is 60 %. Stage 2 diastolic dysfunction. No regional wall motion abnormalities noted. Right Ventricle Normal RV size. Normal systolic function. Atria The left atrium is moderately enlarged. Normal right atrium. Mitral Valve Status post mitral valve repair with annuloplasty ring. Tricuspid Valve Normal tricuspid valve. Aortic Valve Trisinus/trileaflet aortic valve. Pulmonic Valve Normal pulmonic valve. Great Vessels Normal aortic root. The pulmonary artery is normal size. Normal inferior vena cava. Pericardium/Pleural No pericardial effusion. MMode/2D Measurements & Calculations Ao root diam: 3.6 cm LAV(MOD-bp): 99.9 ml LVAd ap4: 22.8 cm2 LAV(MOD-bp) Indexed: 46.7 ml/m2 LVLd ap4: 7.4 cm LAV(MOD-sp2): 103.7 ml EDV(MOD-sp4): 60.4 ml LAV(MOD-sp4): 89.8 ml EDV(sp4-el): 59.4 ml LVAs ap4: 13.3 cm2 LVLs ap4: 6.0 cm ESV(MOD-sp4): 26.9 ml ESV(sp4-el): 25.1 ml EF(MOD-sp4): 55.4 % EF(sp4-el): 57.8 % SV(MOD-sp4): 33.5 ml SV(sp4-el): 34.3 ml LA A4 area: 26.9 cm2 LA dimension(2D): 5.3 cm RA A4 area: 13.9 cm2 Time Measurements MV dec time: 0.38 sec Doppler Measurements & Calculations MV E max mohan: 154.3 cm/sec Lat Peak E' Mohan: 7.3 cm/sec Med Peak E' Mohan: 4.0 cm/sec MV A max mohan: 129.3 cm/sec E/E' lat: 21.1 E/E' med: 38.9 MV E/A: 1.2 MV V2 max: 147.3 cm/sec MV dec slope: 410.8 cm/sec2 Ao V2 max: 159.0 cm/sec MV max P.7 mmHg Ao max P.1 mmHg MV V2 mean: 93.4 cm/sec Ao V2 mean: 110.0 cm/sec MV mean P.0 mmHg Ao mean P.6 mmHg MV V2 VTI: 58.5 cm Ao V2 VTI: 37.4 cm AV (velocity ratio): 0.71 LV V1 max: 131.4 cm/sec PA V2 max: 110.0 cm/sec LV V1 max P.9 mmHg PA V2 mean: 74.2 cm/sec LV V1 mean P.1 mmHg LV V1 mean: 94.5 cm/sec LV V1 VTI: 26.5 cm ECHO/Echo Complete Interpretation Summary Status post mitral valve repair with annuloplasty ring. Normal LV size. Left ventricular systolic function is normal. The estimated ejection fraction is 60 %. Stage 2 diastolic dysfunction. The left atrium is moderately enlarged. Ordering Physician: Damien Daniel Referring Physician: Damien Daniel Performed By: Ashlie Hayward RCS
== END | disposition home or self-care (01) ==
LOC: CVS 10:25
PROVIDERS: PCP Family Medicine; Referring Provider Nurse Practitioner Family; Visit Provider Nurse Practitioner Family
DX: R06.09 Other forms of dyspnea (principal); I10 Essential (primary) hypertension; Z98.890 Other specified postprocedural states
CPT/HCPCS: 93306

== ENCOUNTER 2023-12-02 14:05 | Emergency (ER) | payer MEDICARE, OTHER, SELFPAY ==
[2021-02-12 08:21] VITALS: BMI 46.4
[2023-12-02 14:06] VITALS: BP 140/91; PULSE 71; RESP 18; TEMP 36.4; O2SAT 100; BMI 47.2
--- NOTE | 2023-12-02 15:41 | EKG12_ITS ---
Test Reason : NEURO Blood Pressure : / mmHG Vent. Rate : 070 BPM Atrial Rate : 070 BPM P-R Int : 188 ms QRS Dur : 110 ms QT Int : 406 ms P-R-T Axes : 038 -08 066 degrees QTc Int : 438 ms Normal sinus rhythm Minimal voltage criteria for LVH, may be normal variant ( Bruno product ) Inferior infarct (cited on or before 29-MAY-2022) ST & T wave abnormality, consider anterior ischemia Abnormal ECG Confirmed by Bari Sanford ([id number]), market editor FLORI DYE ([id number]) on 12/04/2023 7:18:19 AM Referred By: Confirmed By:Bari Sanford
--- NOTE | 2023-12-02 15:41 | CT_ITS ---
STUDY: CT BRAIN WITHOUT CONTRAST REASON FOR EXAM: Female, 68 years old. Dizziness, Double vision RADIATION DOSAGE (If Supplied By Facility): CTDIvol = ( 47.06 ) mGy, DLP = ( 1815.94 ) mGycm TECHNIQUE: Transaxial CT imaging of the brain was performed without administration of intravenous contrast material. Individualized dose optimization techniques were used for this CT. COMPARISON: No relevant priors. FINDINGS: Normal soft tissue structures. Normal calvarium. Normal size ventricles and extra-axial spaces for the patient''s age. There are areas of decreased attenuation within the white matter tracts of the supratentorial brain, consistent with microvascular disease changes. Normal basal ganglia and thalami. Normal brainstem. Normal cerebellum. There is no intracranial hemorrhage. There are no findings of an acute ischemic infarction. Normal visualized paranasal sinuses. CT/Brain/Head without Contrast IMPRESSION: Chronic involutional changes of the brain. No acute abnormalities. Electronically Signed: Jose Vyas MD at 16:27 EDT ,
--- NOTE | 2023-12-02 15:43 | EDS_ITS ---
HPI History of Present Illness Chief Complaint: Neuro S/Sx Narrative Narrative: 68-year-old female presents with intermittent double vision that she has had for at least a month if not longer according to her . 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 She states she gets it at least once or twice a week, it only lasts about 5 to 10 minutes. She denies any headache or paresthesias. Was suggested by gynecology that she go to the emergency department, but the patient declined so she went home. She states that she had a call from her primary care provider who instructed her to come to the emergency department. There was concern for TIA. However, the patient states she feels fine. She is not experiencing double vision. [facility] Medical History Asthma Depression Essential (primary) hypertension Nonrheumatic mitral (valve) insufficiency Nonrheumatic mitral valve prolapse Obesity Paroxysmal atrial tachycardia Pericardial effusion (11/09/20) Ulcerative colitis Home Medications pantoprazole 40 mg tablet,delayed release 40 mg PO DAILY 03/05/16 [History Last Taken 07/23/20] albuterol sulfate 90 mcg/actuation aerosol inhaler 1 - 2 puff inhalation Q4H PRN PRN Wheezing ##1 04/15/17 [Rx Last Taken Unknown] ergocalciferol (vitamin D2) 1,250 mcg (50,000 unit) capsule 50,000 unit PO QWEEK 08/05/17 [History Last Taken Unknown] Handicap Placard #1 ea 05/06/21 [Rx Last Taken Unknown] vedolizumab 300 mg intravenous solution 300 mg .Route .every 2 months 05/21/21 [History Last Taken Unknown] venlafaxine 150 mg capsule,extended release 24 hr 150 mg PO DAILY 05/21/21 [History Last Taken Unknown] potassium chloride 20 mEq tablet,extended release 20 meq PO DAILY #90 tabs 12/11/21 [Rx Last Taken Unknown] furosemide 40 mg tablet (Lasix) 40 mg PO DAILY #90 tabs 05/27/22 [Rx Last Taken Unknown] cholestyramine (with sugar) 4 gram oral powder 1 ea PO DAILY 07/03/23 [History Last Taken Unknown] fluticasone fur. 200 mcg-umeclid 62.5 mcg-vilant 25 mcg inhalat.powder (Trelegy Ellipta) 1 inh inhalation DAILY 07/03/23 [History Last Taken Unknown] metoprolol succinate 50 mg tablet,extended release 24 hr (Toprol XL) 50 mg PO DAILY #90 tabs 07/29/23 [Rx Last Taken Unknown] Allergy/AdvReac Type Severity Reaction Status Date / Time lisinopril AdvReac cough Verified 12/02/23 14:08 Family History Father CAD (coronary artery disease) Hypertension Diabetes Mother CAD (coronary artery disease) Hypertension Sister Diabetes Surgical History excision of tumor from lower spine (04/2016) History of colonoscopy (12/2019) History of esophagogastroduodenoscopy (EGD) (12/2019) History of left heart catheterization (07/23/20) History of mitral valve repair (10/08/20) Hx of cholecystectomy Social History Smoking Status: Never smoker alcohol intake: current alcohol intake frequency: a few times a month substance use type: does not use caffeine: Yes Type: carbonated beverages Number of servings: 2 ROS ROS ED ROS Narrative Constitutional: No fever, no chills. HEENT: No sore throat. No neck pain. No loss of vision. No rhinorrhea. Positive double vision lasting 5 to 10 minutes at least once or twice a week. Cardiovascular: No chest pain. No palpitations. No pedal edema. Respiratory: No cough, no shortness of breath. Abdominal: No abdominal pain. No nausea. No vomiting. Genitourinary: No dysuria. No hematuria. Musculoskeletal: No myalgias. No arthralgias. Neurologic: No headaches. No dizziness. No lightheadedness. Skin: No rash. No change in color. Psychiatric: No depression. No anxiety. EXAM Physical Exam Narrative Exam Narrative: Afebrile. Vital signs noted. HEENT: Normocephalic. Atraumatic. PERRL, EOMI. Neck soft and supple. No point tenderness or step off. Cardiovascular: Regular rate and rhythm. No murmurs, rubs, or gallops appreciated. Respiratory: No tachypnea. Lungs clear to auscultation bilaterally. Gastrointestinal: Abdomen soft, nontender, with normoactive bowel sounds. No rebound or guarding. Neurological: Awake. Alert. Nonfocal, nonlateralizing. No nystagmus. NIH stroke scale is 0. Skin: No rash. Normal color. No pallor. Musculoskeletal: No pedal edema. Full range of motion extremities. Const Vital Signs: 12/02/23 14:06 12/02/23 16:06 12/02/23 18:00 Temperature 97.5 F L Temperature Source Temporal Pulse Rate 71 103 H 84 Respiratory Rate 18 16 20 H Blood Pressure 140/91 H 124/93 H 117/88 H Blood Pressure Mean 107 103 97 Pulse Ox 100 98 91 Oxygen Delivery Method Room Air Room Air Room Air MDM MDM MDM Narrative Medical decision making narrative: In the differential diagnosis is neurological double vision versus nonspecific vision changes versus hyperglycemia with new onset diabetes. In discussion with the patient and her , he states that it has been going on for at least a year when she gets these episodes. I do not feel that a stroke team is indicated as her NIH is 0 and she is symptom-free, however, I will obtain a CT of the brain along with basic laboratory work with EKG and a single troponin. She is not a TNK candidate as her NIH stroke scale is 0, she is asymptomatic and has no debilitating neurological symptoms currently. I reviewed her laboratory work and she has normal white count of 7.8, hemoglobin slightly hemoconcentrated at 15.3 with hematocrit 47.8 and platelet count normal at 166. Electrolyte panel is grossly unremarkable except for BUN of 19 and creatinine slightly elevated at 1.07 which is a chronic finding for her. No acute kidney injury. AST and ALT are normal, high-sensitivity troponin is 10. This has been ongoing so I do not feel that she needs serial enzymes. EKG was obtained and interpreted by myself independently as normal sinus rhythm at [address] changes. No ectopy. No STEMI. She does have T wave inversion in V1 through V3 but this is chronic when compared to previous EKGs. Urinalysis is negative for infection, I do not feel antibiotics are indicated. CT of the brain shows chronic involutional Tony changes but no evidence of previous ischemic event, no acute hemorrhage. At this point in time, the patient feels well, she is not having double vision or any neurological symptoms currently. Through shared decision-making, I do feel that she can be discharged safely home with follow-up to her primary care provider. I do not feel that she needs to be admitted for emergent MRI/urgent MRI. Patient is comfortable going home. Return instructions to the emergency department were reviewed. Disposition is discharged home in stable condition. History & Record Review Discussion w/independent historian: Patient and Family Additional record(s) reviewed:: Prior outpatient record Lab Data Attestation: I reviewed the patient's lab results. Labs: Laboratory Results - last 24 hr 12/02/23 12/02/23 12/02/23 15:52 15:55 16:58 WBC 7.8 RBC 5.43 H Hgb 15.3 H Hct 47.8 H MCV 88.0 MCH 28.2 MCHC 32.0 RDW Std Deviation 43.4 RDW Coeff of Hollie 13.4 Plt Count 166 MPV 10.2 Immature Gran % (Auto) 0.400 Neut % (Auto) 54.6 Lymph % (Auto) 33.0 [place] % (Auto) 9.6 Eos % (Auto) 1.8 Baso % (Auto) 0.6 Absolute Neuts (auto) 4.2 Absolute Lymphs (auto) 2.57 Nucleated RBC % 0 Sodium 137 Potassium 4.0 Chloride 103 Carbon Dioxide 30.0 Anion Gap 4 L BUN 19 H Creatinine 1.07 H Estim Creat Clear Calc 62.00 Est GFR (MDRD) Af Amer 66 Est GFR (MDRD) Non-Af 54 L BUN/Creatinine Ratio 17.8 Glucose 101 Calcium 9.3 Total Bilirubin 0.60 AST 22 ALT 27 Alkaline Phosphatase 99 Troponin I High Sens 10 Total Protein 7.2 Albumin 3.7 Globulin 3.5 Albumin/Globulin Ratio 1.1 Urine Color Yellow Urine Clarity Clear Urine pH 5.0 Ur Specific [place] 1.015 Urine Protein Negative Urine Glucose (UA) Normal Urine Ketones Negative Urine Occult Blood Negative Urine Nitrite Negative Urine Bilirubin Negative Urine Urobilinogen Normal Ur Leukocyte Esterase 25 H Urine RBC 0 SEEN Urine WBC 0-5 SEEN Ur Squamous Epith Cells 0-5 SEEN Urine Bacteria RARE Urine Mucus 0 SEEN POC Glucose 106 Radiography Diagnostic Testing: Clinical Impression(s) from Imaging Studies Brain CT 12/02/23 15:41 IMPRESSION: Chronic involutional changes of the brain. No acute abnormalities. Electronically Signed: Jose Vyas MD at 16:27 EDT , Chest X-Ray 12/02/23 16:02 IMPRESSION: No definite acute or significant abnormality seen. Electronically Signed: Jose Vyas MD at 16:25 EDT , Discharge Plan Triage Chief Complaint: Neuro S/Sx ED Provider: Daniel Marmolejo Dx/Rx/DC Orders Clinical Impression: Double vision, Dizziness Instructions: ED Double Vision (Diplopia), ED Dizziness, Uncertain Cause Prescriptions: No Action vedolizumab 300 mg recon soln 300 mg .Route .every 2 months Rx Instructions: 300 mg .every 2 months; very 8 weeks Trelegy Ellipta 200-62.5-25 mcg blister with device 1 inh inhalation DAILY Patient Comments: INHALE 1 PUFF INSTRUCTED ONCE DAILY. cholestyramine (with sugar) 4 gram powder 1 ea PO DAILY Patient Comments: PLEASE SEE ATTACHED FOR DETAILED DIRECTIONS pantoprazole 40 MG tablet 40 mg PO DAILY ergocalciferol (vitamin D2) 50,000 UNIT capsule 50,000 unit PO QWEEK venlafaxine 150 mg capsule,extended release 24hr 150 mg PO DAILY albuterol sulfate 1 INHALER inhaler 1 - 2 puff INHALATION Q4H PRN PRN (Reason: Wheezing) Qty: 1 0RF (DME) Handicap Placard See Rx Instructions .Route .MEDSUPPLY Qty: 1 0RF Rx Instructions: expires 05/06/2026 potassium chloride 20 mEq tablet extended release 20 meq PO DAILY Qty: 90 3RF furosemide [Lasix] 40 mg tablet 40 mg PO DAILY Qty: 90 3RF metoprolol succinate [Toprol XL] 50 mg tablet extended release 24 hr 50 mg PO DAILY Qty: 90 3RF Primary Care Provider: Charli Brasher Referrals: Charli Brasher MD [Primary Care Provider] - 3-5 Days Hina Crawford MD [Med Staff - Active Staff] - As Needed Disposition Disposition: Home, Self Care
[2023-12-02] MEDS: 0.9% Normal Saline (1000mL) 1,000 ML 1000 ML IV (15:58)
--- NOTE | 2023-12-02 16:02 | RAD_ITS ---
STUDY: X-RAY CHEST REASON FOR EXAM: Female, 68 years old. CAD TECHNIQUE: Single AP portable view of the chest. COMPARISON: None. FINDINGS: The lungs are clear and expanded. There is no demonstrated pleural abnormality. There is mild cardiac enlargement. Previous CABG Normal mediastinum and kati. Normal visualized pulmonary arteries. There is atherosclerotic tortuosity of the aortic arch and descending thoracic aorta. Normal visualized thoracic spine. There is degenerative osteoarthritis of the bilateral shoulders. Bilateral calcified loose bodies of the shoulder joints. There is no demonstrated abnormality of the visualized soft tissue structures of the upper abdomen. RAD/Chest 1 View (Portable) IMPRESSION: No definite acute or significant abnormality seen. Electronically Signed: Jose Vyas MD at 16:25 EDT ,
[2023-12-02 16:06] VITALS: BP 124/93; PULSE 103; RESP 16; O2SAT 98
[2023-12-02 16:15] LABS: Bedside Glucose 106 mg/dL (74-106)
[2023-12-02 16:17] LABS: Absolute Lymphocyte Count 2.57 X10^3/uL (0.83-4.51); Absolute Neutrophil Count 4.2 X10^3/uL (2.0-7.7); Basophil# 0.05 X10^3/uL; Basophil% 0.6 % (0-1); Eosinophil# 0.14 X10^3/uL; Eosinophils% 1.8 % (0-5); Hematocrit 47.8 % (37-47); Hemoglobin 15.3 g/dL (12.0-15.0); Lymphocyte # 2.57 X10^3/ul (0.83-4.51); Mean Corpuscular Hgb 28.2 pg (27.0-32.0); Mean Platelet Vol. 10.2 fl (6.2-12.0); Monocyte# 0.75 X10^3/uL; Monocyte% 9.6 % (0-10); NRBC Flagged by Analyzer 0 % (0-5); Neutrophil # 4.24 X10^3/uL (2.7-7.7); Neutrophil % 54.6 % (47-70); Platelet Count 166 K/mm3 (150-450); RBC Distribution Width CV 13.4 % (11.6-14.6); RBC Distribution Width SD 43.4 fl (35.1-43.9); Red Blood Count 5.43 M/mm3 (4.2-5.4); White Blood Count 7.8 K/mm3 (4.4-11.0)
[2023-12-02 16:35] LABS: ALB/GLOB Ratio 1.1 RATIO (0.9-2.4); AST(SGOT) 22 U/L (15-37); Alanine Aminotransfer ALT/SGPT 27 U/L (13-56); Albumin, Serum 3.7 g/dL (3.2-5.0); Alkaline Phosphatase 99 U/L (45-117); Anion Gap 4 (5-15); BUN 19 mg/dL (7-18); BUN/Creat Ratio 17.8 RATIO (10-20); Calcium,Total 9.3 mg/dL (8.5-10.1); Chloride 103 mmol/L (98-107); Creatinine, Serum 1.07 mg/dL (0.55-1.02); EST Glomerular Filtration Rate 54 mL/min (>60); Est Glom Filt Rate - Afr Amer 66 mL/min (>60); Globulin 3.5 g/dL (2.2-4.2); Glucose 101 mg/dL (74-106); Protein, Total 7.2 g/dL (6.4-8.2); Sodium Level 137 mmol/L (136-145); Troponin-I HS 10 pg/mL (3.0-54.0)
[2023-12-02 17:02] LABS: Mucous, Urine 0 SEEN /hpf (<or=2+); Red Blood Cells-Urine 0 SEEN /hpf (0-5)
[2023-12-02 17:16] LABS: Color, Urine Yellow (Yellow); Glucose, Dipstick Normal (Normal); Ketone-Dipstick Negative (Negative); Leukocyte Esterase-Dipstick 25 /ul (Negative); Nitrite-Dipstick Negative (Negative); Occult Blood-Urine Negative /ul (Negative); Protein-Dipstick Negative (Negative); Specific Gravity, Urine 1.015 (1.002-1.030); Urine Bilirubin Dipstick Negative (Negative); Urine Clarity Clear (Clear); Urine Urobilinogen Normal (Normal)
[2023-12-02 17:25] LABS: Bacteria RARE /hpf (None Seen); Squamous Epithelial Cells - UA 0-5 SEEN /hpf (5-10); White Blood Cells 0-5 SEEN /hpf (0-5)
[2023-12-02 18:00] VITALS: BP 117/88; PULSE 84; RESP 20; O2SAT 91
[2023-12-02 18:33] VITALS: BP 117/88; PULSE 80; RESP 18; TEMP 35.4; O2SAT 93
== END 2023-12-02 18:35 | disposition home or self-care (01) ==
PROVIDERS: Emergency Provider Emergency Medicine; PCP Family Medicine; Visit Provider Emergency Medicine
DX: H53.2 Diplopia (principal); R42 Dizziness and giddiness; I10 Essential (primary) hypertension; Z79.899 Other long term (current) drug therapy
CPT/HCPCS: 70450; 71045; 80053; 81001; 82962; 84484; 85025; 93005; 96360; 96361; 99282; J7030

== ENCOUNTER → 2024-04-28 | Outpatient (CLI) | payer MEDICARE, OTHER, SELFPAY ==
[2021-02-12 08:21] VITALS: BMI 46.4
[2024-04-28 10:48] LABS: Absolute Lymphocyte Count 1.08 X10^3/uL (0.83-4.51); Absolute Neutrophil Count 3.3 X10^3/uL (2.0-7.7); Basophil# 0.04 X10^3/uL; Basophil% 0.8 % (0-1); Eosinophil# 0.14 X10^3/uL; Eosinophils% 2.7 % (0-5); Hematocrit 43.3 % (37-47); Hemoglobin 13.8 g/dL (12.0-15.0); Lymphocyte # 1.08 X10^3/ul (0.83-4.51); Lymphocyte % 21.1 % (19-41); Mean Corp Hgb Conc 31.9 g/dL (32-36); Mean Corpuscular Hgb 28.6 pg (27.0-32.0); Mean Corpuscular Volume 89.6 fL (81-99); Mean Platelet Vol. 10.1 fl (6.2-12.0); Monocyte% 9.8 % (0-10); NRBC Flagged by Analyzer 0 % (0-5); Neutrophil # 3.33 X10^3/uL (2.7-7.7); Neutrophil % 65.2 % (47-70); Platelet Count 146 K/mm3 (150-450); RBC Distribution Width SD 42.6 fl (35.1-43.9); Red Blood Count 4.83 M/mm3 (4.2-5.4); White Blood Count 5.1 K/mm3 (4.4-11.0)
[2024-04-28 11:08] LABS: BNP,B-Type NATRIURETIC PEPTIDE 67.4 pg/mL (0-100)
[2024-04-28 11:30] LABS: ALB/GLOB Ratio 1.1 RATIO (0.9-2.4); AST(SGOT) 19 U/L (15-37); Alanine Aminotransfer ALT/SGPT 26 U/L (13-56); Albumin, Serum 3.5 g/dL (3.2-5.0); Alkaline Phosphatase 93 U/L (45-117); Anion Gap 5 (5-15); BUN 12 mg/dL (7-18); BUN/Creat Ratio 14.4 RATIO (10-20); Calcium,Total 9.4 mg/dL (8.5-10.1); Chloride 108 mmol/L (98-107); Creatinine, Serum 0.84 mg/dL (0.55-1.02); EST Glomerular Filtration Rate 72 mL/min (>60); Est Glom Filt Rate - Afr Amer 87 mL/min (>60); Globulin 3.1 g/dL (2.2-4.2); Glucose 102 mg/dL (74-106); Potassium 4.2 mmol/L (3.5-5.1); Protein, Total 6.6 g/dL (6.4-8.2); Sodium Level 140 mmol/L (136-145)
== END | disposition home or self-care (01) ==
LOC: LAB 10:12
PROVIDERS: PCP Family Medicine; Referring Provider Nurse Practitioner Family; Visit Provider Nurse Practitioner Family
DX: R06.00 Dyspnea, unspecified (principal)
CPT/HCPCS: 36415; 80053; 83880; 85025

== ENCOUNTER → 2024-05-05 | Outpatient (CLI) | payer MEDICARE, OTHER, SELFPAY ==
[2021-02-12 08:21] VITALS: BMI 46.4
--- NOTE | 2024-05-05 12:20 | ECHOD_ITS ---
Reason For Study: DYSPNEA/SOB Procedure This was a 2D Doppler, Color Flow transthoracic echocardiogram. The study was technically difficult. Due to body habitus & respiratory interference. Exam performed in department. Left Ventricle Normal LV size. Left ventricular systolic function is normal. The estimated ejection fraction is 60 %. No regional wall motion abnormalities noted. Right Ventricle Normal RV size. Normal systolic function. Atria The left atrium is mildly enlarged. Normal right atrium. Mitral Valve Status post mitral valve repair with annuloplasty ring. Tricuspid Valve Normal tricuspid valve. Mild (1+) tricuspid valve insufficiency. Pulmonary artery systolic pressure is 30 mmHg. Aortic Valve Trisinus/trileaflet aortic valve. Pulmonic Valve Normal pulmonic valve. Great Vessels Normal aortic root. Pericardium/Pleural No pericardial effusion. MMode/2D Measurements & Calculations LVIDd: 5.4 cm IVSd: 1.1 cm Ao root diam: 3.2 cm LVIDs: 3.3 cm LVPWd: 1.1 cm RVDd: 3.6 cm FS: 38.4 % LAV(MOD-bp): 78.2 ml LVAd ap4: 28.1 cm2 SV(MOD-sp4): 49.8 ml LAV(MOD-bp) Indexed: 36.2 ml/m2 LVLd ap4: 7.5 cm LAV(MOD-sp2): 74.9 ml EDV(MOD-sp4): 86.8 ml LAV(MOD-sp4): 78.2 ml EDV(sp4-el): 89.0 ml LVAs ap4: 16.6 cm2 LVLs ap4: 6.6 cm ESV(MOD-sp4): 37.0 ml ESV(sp4-el): 35.9 ml EF(MOD-sp4): 57.4 % EF(sp4-el): 59.7 % SV(sp4-el): 53.2 ml LA A4 area: 23.6 cm2 LA dimension(2D): 5.7 cm RA A4 area: 13.1 cm2 TAPSE: 1.9 cm Time Measurements MV dec time: 0.31 sec Doppler Measurements & Calculations MV E max mohan: 114.0 cm/sec Lat Peak E' Mohan: 6.2 cm/sec Med Peak E' Mohan: 8.1 cm/sec MV A max mohan: 97.6 cm/sec E/E' lat: 18.4 E/E' med: 14.1 MV E/A: 1.2 MV V2 max: 128.8 cm/sec MV P1/2t max mohan: 121.8 cm/sec Ao V2 max: 122.2 cm/sec MV max P.6 mmHg MV P1/2t: 87.0 msec Ao max P.0 mmHg MV V2 mean: 75.3 cm/sec Ao V2 mean: 86.9 cm/sec MV mean P.5 mmHg MV dec slope: 409.9 cm/sec2 Ao mean P.3 mmHg MV V2 VTI: 42.1 cm MVA(P1/2t): 2.5 cm2 Ao V2 VTI: 28.6 cm AV (velocity ratio): 0.75 LV V1 max: 83.3 cm/sec PA V2 max: 76.7 cm/sec TR max mohan: 262.5 cm/sec LV V1 max P.8 mmHg PA V2 mean: 60.2 cm/sec TR max P.6 mmHg LV V1 mean P.7 mmHg LV V1 mean: 64.1 cm/sec LV V1 VTI: 21.5 cm ECHO/Echo Complete Interpretation Summary Status post mitral valve repair with annuloplasty ring. Normal LV size. Left ventricular systolic function is normal. The estimated ejection fraction is 60 %. Pulmonary artery systolic pressure is 30 mmHg. Ordering Physician: Damien Daniel Referring Physician: Charli Brasher Performed By: Cindy Carney RDCS, RVT
== END | disposition home or self-care (01) ==
LOC: CVS 12:19
PROVIDERS: PCP Family Medicine; Referring Provider Nurse Practitioner Family; Visit Provider Nurse Practitioner Family
DX: Z98.890 Other specified postprocedural states (principal); R06.09 Other forms of dyspnea; I10 Essential (primary) hypertension
CPT/HCPCS: 93306

== ENCOUNTER → 2024-09-06 | Outpatient (CLI) | payer MEDICARE, OTHER, SELFPAY ==
[2021-02-12 08:21] VITALS: BMI 46.4
== END | disposition home or self-care (01) ==
LOC: LABSPEC 15:06
PROVIDERS: PCP Family Medicine; Referring Provider Physician Assistant; Visit Provider Physician Assistant
DX: R35.0 Frequency of micturition (principal)
CPT/HCPCS: 87086; 87088; 87186